=== PATIENT | female | born 1945 | race Caucasian/White ===

== ENCOUNTER 2023-05-30 23:37 | Inpatient (IN) | payer MEDICARE, SELFPAY ==
--- NOTE | ~2023-05-30 | XR_ITS ---
EXAMINATION: XR chest 2V DATE: 06/04/2023 08:04 INDICATION: Shortness of breath. Cough. TECHNIQUE: Frontal and lateral views of the chest were obtained. COMPARISON: Chest single view 06/01/2023, chest CT 05/31/2023 FINDINGS: There are interstitial opacities and patchy airspace opacities in the mid and lower lung [place]. No pleural effusion or pneumothorax. Cardiomegaly is noted. There is chronic anterior wedging of T12. There are surgical clips in the neck. IMPRESSION: 1. Stable interstitial opacities and patchy airspace opacities in the mid and lower lung zones, consi stent with pulmonary edema versus pneumonia. 2. Cardiomegaly. Reviewed, dictated and finalized at location [facility]. MBLER SEAT IMPRESSION: 1. Stable interstitial opacities and patchy airspace opacities in the mid and l ower lung zones, consistent with pulmonary edema versus pneumonia. 2. Cardiomegaly.
--- NOTE | ~2023-05-30 | CT_ITS ---
Clinical Indication: Dyspnea, hypoxia CT Scan of the Chest with Contrast: Technique: Contiguous sections were acquired throughout the chest after intravenous administration of 100 cc of Omnipaque 350. Dose reduction technique was used on this scan by utilizing automated expos ure control and iterative reconstruction technique. The dose-length product (DLP) was 954.30 mGy-cm. Findings: There is no evidence of any significant mediastinal, hilar or axillary lymphadenopathy. There is no f illing defect in the pulmonary arterial tree to suggest pulmonary embolus. There is no evidence of ao rtic dissection or aneurysm. There is cardiomegaly. No pericardial effusion. Small right pleural effusion present. No left pleural effusion. There is mild bibasilar atelectasis, with patchy groundglass opacity and mild septal thickening in th e aerated lungs. Images through the upper abdomen reveal no abnormalities. Impression: No evidence of pulmonary embolus, aortic dissection, or aortic aneurysm. Mild to moderate pulmonary edema pattern with small right pleural effusion. Reviewed, dictated and finalized at [facility]. GER Impression: No evidence of pulmonary embolus, aortic dissection, or aortic aneurysm. Mild to moderate pulmonary edema pattern with small right pleural effusion.
--- NOTE | ~2023-05-30 | XR_ITS ---
Portable chest x-ray Comparison: 05/26/2018 Clinical History: Dyspnea Findings: There is extensive hazy and interstitial pulmonary disease. No definite pleural effusions. Cardiomediastinal silhouette is stable. Bones and soft tissues are unremarkable. Impression: Moderate to advanced pulmonary edema pattern. Correlate clinically for infection. Reviewed, dictated and finalized at [facility] [place]. T THROWER Impression: Moderate to advanced pulmonary edema pattern. Correlate clinically for infectio n.
--- NOTE | ~2023-05-30 | XR_ITS ---
Portable chest x-ray Comparison: 05/30/2023 Clinical History: Hypoxia Findings: There is central congestive change and mild pulmonary edema, overall improved from prior e xam. Cardiomediastinal silhouette is stable. Bones and soft tissues are unremarkable. Impression: Pulmonary edema pattern is mildly improved from prior exam. Correlate for underlying chronic intersti tial disease. Stable cardiomegaly. Reviewed, dictated and finalized at location . 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 Correlate for under lying chronic interstitial disease. Stable cardiomegaly.
[2023-05-30 23:37] VITALS: BP 129/89; PULSE 110; RESP 26; TEMP 36.6; O2SAT 93
--- NOTE | 2023-05-30 23:46 | ECG_ITS ---
Measurements Intervals [place] Rate: 108 P: 40 OK: 142 QRS: -36 QRSD: 98 T: 52 QT: 341 QTc: 458 Interpretive Statements SINUS TACHYCARDIA VENTRICULAR PREMATURE COMPLEX LEFT AXIS DEVIATION PATTERN CONSISTENT WITH PULMONARY DISEASE BASELINE ARTIFACT- I, II, III, AVR, AVL, AVF, V1-V6 ABNORMAL ECG NO PREVIOUS ECG AVAILABLE FOR COMPARISON Electronically Signed On 05-31-2023 6:25:50 STEEL PAN FORM PLACING SUPERVISOR by Andres Humphrey D.O.
[2023-05-30 23:47] VITALS: O2SAT 95
[2023-05-30 23:57] LABS: Alveolar/Arterial O2 Gradient 582.6 mmHg; Base Excess ABG 1.8 mEq/l (+/-2.0); Fractional Inspired Oxygen 100 %; HCO3 ABG 29.2 mEq/l (22.0-26.0); Oxygen Content ABG 16.5 %vol (16.0-22.0); Oxygen Saturation ABG 92.7 % (95.0-100.0); Oxyhemoglobin 90.1 % THb (90.0-100.0); PCO2 ABG 58.8 mmHg (35.0-45.0); PO2 ABG 71.6 mmHg (80.0-100.0); PO2 FiO2 Ratio Arterial Blood 0.72 %; pH ABG 7.314 (7.350-7.450)
[2023-05-30 23:58] LABS: Device NON-REBREATHER MASK; Modified Allen's Test Pass; Site Drawn RIGHT RADIAL
[2023-05-31] VITALS (40 sets, daily range): BP systolic 106–126; BP diastolic 51–84; PULSE 71–102; RESP 18–43; TEMP 36.2–36.7; O2SAT 85–100; BMI 47.0
--- NOTE | 2023-05-31 | ECHO_ITS ---
Patient Info Name: Brandy Cooper Age: 78 years : 1945 Gender: Female Ht: 66 in Wt: 291 lbs BSA: 2.55 m2 HR: 108 bpm BP: 106 / 51 mmHg Heart Rhythm: Tachycardia, Sinus Rhythm Technical Quality: Fair Exam Date: 05/31/2023 3:17 PM Exam Location: Echo Lab Patient Status: Inpatient Admit Date: 05/31/2023 Staff Ordering Physician: Mark Barney MD Chip Frier: Usha Maddox RDCS Attending Provider: Anastasiia Seth DO Exam Type: CA echo dop bubble study w con Study Info Indications - hypoxia, pulm edema Complete two-dimentional, color flow and Doppler transthoracic echocardiogram is performed with agitated saline and with contrast to opacify the left ventricle and to improve the delineation of the left ventricle endocardial borders. Contrast/Agitated Saline Contrast/Ag. Saline: Definity Amount: 2.00 ml Administered By: Usha Maddox RDCS Existing IV Access: Yes IV Access Condition: patent with no signs of infiltration Contrast/Ag. Saline: Agitated Saline Amount: 20.00 ml Existing IV Access: Yes IV Access Condition: patent with no signs of infiltration Summary 1. Normal left ventricular size with mild concentric hypertrophy. Overall good left ventricular systolic function with an ejection fraction 60-65%, although there is mild hypokinesis of the basal inferior wall and the lateral wall. Grade 2 diastolic dysfunction is present. 2. Left atrial chamber dimension is severely enlarged. 3. There is severe aortic valve stenosis with a peak velocity of 4.25 m/s, mean gradient of 35 mmHg, and aortic valve area of 0.8 cm2. Severely calcific valve. 4. There is mild eccentric mitral valve regurgitation, with moderate mitral annular calcification. 5. There is mild tricuspid valve regurgitation. 6. There is mild pulmonic regurgitation. 7. Dilated inferior vena cava with >50% collapse upon inspiration consistent with elevated right atrial pressure, 10 mmHg. 8. Moderate pulmonary hypertension, estimated pulmonary arterial systolic pressure is 47 mmHg. 9. Calcification of the aortic root. 10. Bubble study showed a few left-sided bubbles after several cardiac cycles during the Valsalva maneuver, consistent with pulmonary shunting rather than a PFO. 11. Sinus tachycardia. 12. Technically difficult study; definity echo contrast used. Left Ventricle Left ventricular chamber dimension is normal. Left ventricular systolic function is normal, estimated at 60-65%. There is mildly increased left ventricular wall thickness. Left ventricular septal wall motion is normal. The left ventricular diastolic function is grade II diastolic dysfunction. Right Ventricle Right ventricular chamber dimension is normal. Right ventricular systolic function is normal. Left Atria Left atrial chamber dimension is severely enlarged. Left atrial chamber dimension is severely enlarged. Right Atria Right atrial chamber dimension is normal. Aortic Valve The aortic valve is trileaflet. There is no aortic valve sclerosis. There is severe aortic valve stenosis with a peak velocity of 4.25 m/s, mean gradient of 35 mmHg, and aortic valve area of 0.8 cm2. Severely calcific valve. There is no aortic valve regurgitation. There is severe aortic valve calcification. Pulmonic Valve The pulmonic valve is normal. There is no pulmonic valve stenosis. There is mild pulmonic regurgitation. Mitral Valve The mitral valve has normal leaflets. There is no mitral valve stenosis. There is mild eccent
[2023-05-31 00:51] LABS: Basophils Absolute Auto 0.1 K/mm3 (0.0-0.1); Basophils Percent Auto 0.5 % (0.2-1.2); Eosinophils Absolute Auto 0.1 K/mm3 (0-0.3); Eosinophils Percent Auto 0.5 % (0-4.4); Hematocrit 40.2 % (37.0-47.0); Hemoglobin 11.9 g/dL (12.0-15.0); Immature Granulocyte Absolute 0.04 K/mm3 (0.00-0.031); Immature Granulocyte Percent A 0.4 % (0-0.5); Lymphocytes Absolute Auto 1.15 K/mm3 (0.9-3.2); Lymphocytes Percent Auto 10.8 % (18.3-44.2); Mean Corpuscular HGB Conc 29.6 g/dl (32-36); Mean Corpuscular Hemoglobin 29.9 pg (26-34); Mean Platelet Volume 10.4 fl (7.4-10.4); Monocytes Absolute Auto 0.6 K/mm3 (0.1-0.6); Monocytes Percent Auto 5.7 % (2.6-8.5); Neutrophils Absolute Auto 8.8 K/mm3 (1.3-6.7); Neutrophils Percent Auto 82.1 % (45.5-73.1); Platelet Count Result 176 k/mm3 (150-375); Red Blood Count 3.98 M/mm3 (4.2-5.4); Red Cell Distribution Width 16.3 % (11.5-14.5); White Blood Count 10.7 K/mm3 (4.5-10.0)
[2023-05-31 00:55] LABS: Alanine Aminotransferase 22 U/L (6-35); Albumin Level 4.1 g/dL (3.5-5.1); Alkaline Phosphatase 78 U/L (38-126); Anion Gap 9 mmol/L (8-16); Aspartate Amino Transferase 32 U/L (14-36); Bilirubin,Total 1.2 mg/dL (0.2-1.3); Blood Urea Nitrogen 21 mg/dL (7-17); Calcium 9.4 mg/dL (8.4-10.2); Carbon Dioxide 32 mmol/L (22-30); Chloride 98 mmol/L (98-107); Estimated CRCL calculation 50 ml/min; Estimated Glomerular Filt Rate 44; Glucose 141 mg/dL (65-110); Magnesium 1.8 mg/dL (1.6-2.3); Potassium 4.3 mmol/L (3.4-5.0); Sodium 139 mmol/L (137-145)
[2023-05-31 00:56] LABS: Prothrombin Time 13.8 Seconds (11.1-14.7)
[2023-05-31 00:57] LABS: Partial Thromboplastin Time 26.4 SECONDS (22.3-36.8)
[2023-05-31 01:06] LABS: Lactic Acid Reflex 1.8 mmol/L (0.7-2.0); NT Pro B Type Natriuretic Pept 4060 pg/mL (19.9-100); Troponin I < 0.012 ng/mL (0.000-0.034)
[2023-05-31 01:13] LABS: Anisocytosis 1+ (NORMAL); Large Platelets Present; Macrocytosis 1+ (NORMAL); Platelet Estimate Adequate (Adequate)
[2023-05-31 01:14] LABS: Schistocytes None Seen (NORMAL)
[2023-05-31 01:17] LABS: Appearance Urine Clear (Clear); Bacteria Urine None Seen /hpf; Bilirubin Urine Negative (Negative); Blood Urine Negative (Negative); Calcium Oxalate Crystals Urine Present /hpf; Color Urine Dark Yellow (Yellow); Glucose Urine UA Negative (Negative); Hyaline Casts Urine Present /lpf; Ketones Urine Trace mg/dL (Negative); Leukocyte Esterase Ur Negative LEU/UL (Negative); Need Manual Microscopic Reviewed; Nitrate Urine Negative (Negative); Non Pathogenic Casts 0-2; Protein Urine 2+ mg/dL (Negative); Specific Grav Ur 1.025 (1.001-1.035); Squamous Epithelial Cell Urine Occasional /hpf (Few)
[2023-05-31 01:19] LABS: Influenza A QL RT-PCR Negative (Negative); Influenza B QL RT-PCR Negative (Negative); SARS-CoV-2 RNA PCR Negative (Negative)
--- NOTE | 2023-05-31 01:29 | ED.GENADULT ---
HPI - General Adult General Chief complaint: Shortness of Breath/Dyspnea Stated complaint: RESPIRATORY DISTRESS Time Seen by Provider: 05/30/23 23:45 History of Present Illness HPI narrative: Patient is a 78-year-old female who presents the emergency department with chief complaint of shortness of breath. The patient is a resident of [place] and EMS was called this evening after she was having severe shortness of breath patient wears 4 L of oxygen at night he does have history of COPD the patient was profoundly hypoxic in the field and was started on a nonrebreather to maintain her sats. Upon arrival to the emergency department the patient was able to speak in complete sentences but was hypoxic still and was placed on BiPAP. Related Data Allergies Allergy/AdvReac Type Severity Reaction Status Date / Time Penicillins Allergy Unknown Unknown Verified 05/20/18 12:39 Review of Systems Review of Systems: A 10 system review of systems was completed on the patient and is negative except for what is stated in the HPI. Nursing and ancillary documentation was reviewed. Exam Narrative: GENERAL: Well-appearing, well-nourished, and in no acute distress. HEAD: Normocephalic, atraumatic. EYES: PERRLA and EOMI. ENT: Nares clear, no rhinorrhea or epistaxis. Mucous membranes moist. NECK: Supple. CHEST: Clear to auscultation. No respiratory distress. HEART: Regular rate and rhythm. No murmur heard. Normal peripheral pulses. ABDOMEN: Soft, nontender, nondistended, normal active bowel sounds. EXTREMITIES: Normal range of motion. No edema. SKIN: Warm, dry, no rash. NEURO: No focal deficits. Alert and oriented x3. PSYCH: Normal mood and affect. Course Vital Signs Vital signs: Vital Signs Temperature 36.6 C 05/30/23 23:37 Pulse Rate 110 H 05/30/23 23:37 Respiratory Rate 26 H 05/30/23 23:37 Blood Pressure 129/89 05/30/23 23:37 Pulse Oximetry 93 05/30/23 23:37 Oxygen Delivery Non-Rebreather Mask 05/30/23 23:37 Oxygen Flow Rate 15 05/30/23 23:37 Temperature 36.6 C 05/30/23 23:37 Pulse Rate 88 05/31/23 03:30 Respiratory Rate 23 H 05/31/23 03:30 Blood Pressure 117/78 05/31/23 03:30 Pulse Oximetry 95 05/31/23 03:30 Oxygen Delivery BiPAP 05/31/23 01:07 Oxygen Flow Rate 15 05/30/23 23:47 Medical Decision Making [facility] Narrative Medical decision making narrative: Differential diagnosis includes pneumonia, pulmonary embolism, CHF, ACS Laboratory studies were obtained on the patient which showed a white count of 10.7 ABG showed a pH 7.314 with PCO2 of 58.8 electrolytes showed a creatinine 1.2 troponin was 0.019 BNP is 4060 Pro-[place] 0.1 urinalysis showed 6-10 white blood cells flu was negative COVID was negative chest x-ray showed diffuse infiltrates and possible CHF. CTA chest showed no evidence of PE there was evidence of infiltrate present. Patient was given a small dose of Lasix patient is currently on BiPAP and also patient will be started on Rocephin and Zithromax the patient be admitted to the hospitalist service. Vital Signs Vital Signs: Vital Signs Temperature 36.6 C 05/30/23 23:37 Pulse Rate 110 H 05/30/23 23:37 Respiratory Rate 26 H 05/30/23 23:37 Blood Pressure 129/89 05/30/23 23:37 Pulse Oximetry 93 05/30/23 23:37 Oxygen Delivery Non-Rebreather Mask 05/30/23 23:37 Oxygen Flow Rate 15 05/30/23 23:37 Temperature 36.6 C 05/30/23 23:37 Pulse Rate 88 05/31/23 03:30 Respiratory Rate 23 H 05/31/23 03:30 Blood Pressure 117/78 05/31/23 03:30 Pulse Oximetry 95 05/31/23 03:30 Oxygen Delivery BiPAP 05/31/23 01:07 Oxygen Flow Rate 15 05/30/23 23:47 Lab Data 05/30/23 23:52 05/30/23 23:52 Labs: Lab Results 05/30/23 05/31/23 05/31/23 Range/Units 23:52 00:18 03:00 WBC 10.7 H (4.5-10.0) K/mm3 RBC 3.98 L (4.2-5.4) M/mm3 Hgb 11.9 L (12.0-15.0) g/dL Hct 40.2 (37.0-47.0
[2023-05-31 01:53] LABS: Procalcitonin 0.1 ng/mL
[2023-05-31 02:14] LABS: Add Urine Microscopic? YES
[2023-05-31] MEDS: FUROSEMIDE INJ 40 MG/4 ML VIAL IV PUSH ×2 (02:52→17:33)
[2023-05-31 03:32] LABS: Troponin I 0.019 ng/mL (0.000-0.034)
[2023-05-31] MEDS: AZITHROMYCIN 500 MG/NS 250 ML 500 MG/250 ML BAG 250 MG IVPB (03:33)
[2023-05-31] MEDS: methylPREDNISolone SOD SUCC 125 MG VIAL IV PUSH (03:39)
--- NOTE | 2023-05-31 05:03 | ADMGEN ---
This patient, Brandy Cooper, was admitted to IMU Room 204-01. Patient/family oriented to hospital policies and general routines including ID bracelet, bed and alarms, visiting hours, pain management, procedures, bathroom and other care routines, personal items, smoking policy, room service/diet, and visiting hours. Information on how to activate the Rapid Response Team has been discussed. Patient/Family are encouraged to report perceived risks to care and to ask questions if they do not understand what they are told or what they should do.
[2023-05-31] MEDS: ALBUTEROL SULFATE NEB 2.5 MG/3 ML INH INHALATION ×3 (08:19→19:55)
[2023-05-31] MEDS: IPRATROPIUM BR 0.02% INH SOLN 0.5 MG/2.5 ML VIAL INHALATION ×3 (08:19→19:55)
--- NOTE | 2023-05-31 11:26 | PM.IMHP ---
H&P: HPI History of Present Illness Date/Time: 05/31/23 11:26 Chief Complaint: Shortness of breath Narrative: 78yo female with pAFib, PAD, NEVIN requiring NIV with 4L O2 bleed-in and HTN here for increasing shortness of breath. Patient has been having increasing shortness of breath over the past 1-2 days. She does not have asthma or COPD. She is lifelong nonsmoker. She does have a nebulizer that she uses as needed at home. She uses this about 1-2 times a week. She is not on oxygen during the day but does have sleep apnea and wears her noninvasive ventilation unit every night with 4 L of oxygen bled in. She has not been having a cough, chest pain, palpitations, wheezing, pleuritic chest pain or calf pain. No odynophagia or dysphagia. No fever or chills. She does not have CHF but her doctor has told her in the past that she needs to limit her salt intake. She has had increasing pedal edema over the past month. No weight gain. She sleeps in the chair chronically and has done so for years. She denies any PND or orthopnea. She has nocturia 1-2 times a night and this has not changed. She does have dyspnea on exertion which is chronic. She believes her last sleep study was greater than 5 years ago. Because of the increasing shortness of breath, EMS was called. On EMS arrival, patient was 71% on her 4L and placed on NRB 15L.She did feel better with neb treatment. She was brought to the ED for evaluation. In the ED, patient was tachypneic and required BiPAP. EKG showing sinus tachycardia and left axis. CXR showing pulmonary edema. CTA chest showing no PE but also showing mild-moderate pulmonary edema. ABG 7.31/59/72 NRB mask. BNP 4000. Troponin negative x2. UA noted and blood and urine cultures collected. Influenza and COVID negative. Lungs clear by ED exam. She was given Lasix IV, Rocephin/Azithromycin, Solu-Medrol, and neb treatments. She was admitted for further care on BiPAP. Review of Systems Review of Systems: All systems reviewed & are unremarkable except as noted in HPI and below PMFSH Past Medical History Medical History (Updated 05/31/23 @ 12:46 by Mark Barney MD) Chronic anemia Essential hypertension, benign GERD (gastroesophageal reflux disease) Hypothyroidism Macular degeneration NEVIN (obstructive sleep apnea) Paroxysmal atrial fibrillation Peripheral vascular disease reported hx of Rt lower extremity stent Thyroid goiter s/p thyroidectomy complicated by acute resp failure and tracheostomy Vitamin D deficiency Surgical History Surgical History (Updated 05/31/23 @ 12:45 by Mark Barney MD) H/O thyroidectomy for goiter H/O: hysterectomy History of gastrostomy tube placement Hx of cataract removal with insertion of prosthetic lens Hx of tracheostomy Family History Family History (Updated 05/31/23 @ 12:46 by Mark Barney MD) Father Brain tumor Social History Social History (Updated 05/31/23 @ 12:47 by Mark Barney MD) Social History: Lifelong nonsmoker. Rarely drinks alcohol. No drug use. She is single. No children. Her niece Kaleigh Fernández is her healthcare power of extension agent. She is a full code. Smoking status: Never smoker Alcohol intake: never Substance use: never Substance use type: does not use Lack of Transportation: No Lack of Food: Never True Current Housing: I Have Housing Concerned About Future Housing: No Difficulty Paying Gas/Electric Bills: No Difficulty Paying for Meds: No Currently Unemployed: No Education: Don't Know Difficulty w/ Childcare or Family Care: No Gender identity (if verbalized by the patient): Female Sexual Orientation (if Verbalized by the Patient): Straight or Heterosexual Spiritual care concerns: No Meds Home Medications and Allergies Home Medications Medication Instructions Recorded Confirmed Type acetaminophen 650 mg tablet 650 mg PO Q4H PRN Pain (Scale 05/31/23 05/31/23 History Score 1-3)
[2023-05-31] MEDS: CALCIUM CARBONATE (TUMS) 500 MG (200 MG ELEMENTAL) PO ×2 (13:26→17:33)
--- NOTE | 2023-05-31 15:08 | PCSTNOTE ---
Please refer to the Bedside Swallow Evaluation in the EMR. Please note, silent aspiration cannot be ruled out at bedside.
[2023-05-31] MEDS: PERFLUTREN LIPID MICROSPHERES 1.5 ML VIAL DILUTED TO 10 ML TOTAL VOLUME IV PUSH (16:00)
--- NOTE | 2023-05-31 16:31 | IVDEFINITY ---
Prior to administration of IV Definity the patient was educated on the risks and benefits of the imaging enhancing agent including potential adverse side effects. The patient verbalized understanding. Allergies were verified. No exclusion criteria were identified and at least one of the following inclusion criteria were met: 1) physician request, 2) patient technically difficult to image (per the [place] [employer] guidelines of two or more segments not discernable within the apical view), or 3) questionable left ventricular function. ?
[2023-05-31] MEDS: OPTI-GEN TAB 2 TABLET PO (17:32)
[2023-05-31] MEDS: MAGNESIUM OXIDE 400 MG TABLET PO (17:33)
[2023-05-31] MEDS: MELATONIN 5 MG TABLET 10 MG PO (20:14)
[2023-06-01] VITALS (28 sets, daily range): BP systolic 95–125; BP diastolic 56–96; PULSE 73–102; RESP 18–28; TEMP 35.9–36.8; O2SAT 90–96
[2023-06-01] MEDS: IPRATROPIUM BR 0.02% INH SOLN 0.5 MG/2.5 ML VIAL INHALATION ×4 (02:36→19:40)
[2023-06-01] MEDS: ALBUTEROL SULFATE NEB 2.5 MG/3 ML INH INHALATION ×4 (02:36→19:40)
[2023-06-01] MEDS: AZITHROMYCIN 500 MG/NS 250 ML 500 MG/250 ML BAG 250 MG IVPB (03:37)
[2023-06-01 05:11] LABS: Basophils Percent Auto 0.2 % (0.2-1.2); Hematocrit 32.2 % (37.0-47.0); Hemoglobin 9.7 g/dL (12.0-15.0); Immature Granulocyte Absolute 0.02 K/mm3 (0.00-0.031); Immature Granulocyte Percent A 0.4 % (0-0.5); Lymphocytes Absolute Auto 0.59 K/mm3 (0.9-3.2); Lymphocytes Percent Auto 10.4 % (18.3-44.2); Mean Corpuscular HGB Conc 30.1 g/dl (32-36); Mean Corpuscular Volume 99.7 fl (80-100); Mean Platelet Volume 10.1 fl (7.4-10.4); Monocytes Absolute Auto 0.6 K/mm3 (0.1-0.6); Monocytes Percent Auto 10.9 % (2.6-8.5); Neutrophils Absolute Auto 4.4 K/mm3 (1.3-6.7); Neutrophils Percent Auto 78.1 % (45.5-73.1); Platelet Count Result 145 k/mm3 (150-375); Red Blood Count 3.23 M/mm3 (4.2-5.4); Red Cell Distribution Width 16.2 % (11.5-14.5); White Blood Count 5.7 K/mm3 (4.5-10.0)
[2023-06-01 05:27] LABS: Alanine Aminotransferase 15 U/L (6-35); Albumin Level 3.3 g/dL (3.5-5.1); Alkaline Phosphatase 57 U/L (38-126); Anion Gap 9 mmol/L (8-16); Aspartate Amino Transferase 17 U/L (14-36); Bilirubin,Total 0.8 mg/dL (0.2-1.3); Blood Urea Nitrogen 27 mg/dL (7-17); Calcium 8.4 mg/dL (8.4-10.2); Carbon Dioxide 30 mmol/L (22-30); Chloride 100 mmol/L (98-107); Estimated CRCL calculation 58 ml/min; Estimated Glomerular Filt Rate 54; Glucose 109 mg/dL (65-110); Magnesium 1.9 mg/dL (1.6-2.3); Phosphorus 5.1 mg/dL (2.5-4.5); Potassium 4.5 mmol/L (3.4-5.0); Sodium 139 mmol/L (137-145)
[2023-06-01 05:30] LABS: Alveolar/Arterial O2 Gradient 225.8 mmHg; Base Excess ABG 4.2 mEq/l (+/-2.0); Fractional Inspired Oxygen 50 %; HCO3 ABG 28.4 mEq/l (22.0-26.0); Oxygen Content ABG 14.7 %vol (16.0-22.0); Oxygen Saturation ABG 96.8 % (95.0-100.0); Oxyhemoglobin 95.1 % THb (90.0-100.0); PO2 ABG 84.6 mmHg (80.0-100.0); PO2 FiO2 Ratio Arterial Blood 1.69 %; Total Hemoglobin 10.9 g/dL (12.0-18.0); pH ABG 7.459 (7.350-7.450)
[2023-06-01 05:31] LABS: Modified Allen's Test Pass; Site Drawn RIGHT RADIAL
[2023-06-01 05:32] LABS: Device OTHER DEVICE
[2023-06-01 05:36] LABS: Troponin I 0.014 ng/mL (0.000-0.034)
[2023-06-01] MEDS: LEVOTHYROXINE SODIUM 100 MCG TABLET 200 MCG PO (06:06)
[2023-06-01 06:31] LABS: Folic Acid 9.2 ng/mL (2.76->20)
[2023-06-01 07:53] LABS: Free T4 Free Thyroxine Reflex 1.32 ng/dL (0.78-2.19)
[2023-06-01] MEDS: MAGNESIUM OXIDE 400 MG TABLET PO ×2 (08:10→17:23)
[2023-06-01] MEDS: FAMOTIDINE 20 MG TABLET PO (08:10)
[2023-06-01] MEDS: calcitrioL 0.25 MCG CAPSULE PO (08:10)
[2023-06-01] MEDS: CYANOCOBALAMIN 1,000 MCG TABLET 1000 MCG PO (08:10)
[2023-06-01] MEDS: ASPIRIN 81 MG ENTERIC TABLET PO (08:10)
[2023-06-01] MEDS: CALCIUM CARBONATE (TUMS) 500 MG (200 MG ELEMENTAL) PO ×3 (08:10→17:22)
[2023-06-01] MEDS: FUROSEMIDE INJ 40 MG/4 ML VIAL IV PUSH (08:11)
[2023-06-01] MEDS: OPTI-GEN TAB 2 TABLET PO ×2 (08:11→17:22)
[2023-06-01] MEDS: VANCOMYCIN 1,250 MG/NS 250 ML 1,250 MG/250 ML BAG 166.67 MG IVPB ×2 (08:21→10:02)
[2023-06-01 12:12] LABS: MRSA (PCR) NOT DETECTED (NOT DETECTE)
--- NOTE | 2023-06-01 13:36 | PM.IMPN ---
Progress Note: A&P Assessment and Plan (1) Acute hypercapnic respiratory failure: Code(s): J96.02 - Acute respiratory failure with hypercapnia Status: Acute Assessment and Plan: Patient was admitted to the IMU on BiPAP. Etiology of her acute respiratory failure is somewhat unclear. Dysphagia unlikely: Speech therapy felt patient could swallow safely. No further speech therapy needs. The notes mentions she has COPD the patient but she is a lifelong nonsmoker. No history of CHF although chest x-ray is consistent with pulmonary edema. She has been started on antibiotics but no cough, fever or leukocytosis to suggest infectious process. ABG does show CO2 retention. Consider that her sleep apnea may not be optimally treated. Most likely etiology is the pulmonary edema/CHF resulting in respiratory distress. Troponins are negative x3. Treated with Lasix IV with good response. Solu-Medrol stopped since there was no wheezing on presentation nor currently. Continue nebulizer treatments for now. Able to wean BiPAP to use at night, with naps and as needed. ABG today showing 7.46/41/85 pm 50% FiO2 Echo showing EF 60-65%, basal inferior and lateral wall HK, Grade II diastolic dysfuction, moderate pulm HTN, severe (0.8cm2) and pulmonary shunt. CHF probably acute diastolic CHF felt related to severe . She also may be need chronic O2 during the day due to shunt. BP soft so will back off on lasix. Cardiology consult. Add empagliflozin. (2) Bacteremia: Code(s): R78.81 - Bacteremia Status: Acute Assessment and Plan: BCx (1of2 sets) positive for GPC in clusters anaerobic only. Suspect this is contaminate but did present with SOB and respiratory failure. Follow on BCx results. Continue Vanco Repeat BCx Consider BRANDT if persistent bacteremia (3) Aortic stenosis: Code(s): I35.0 - Nonrheumatic aortic (valve) stenosis Status: Acute Assessment and Plan: As above. (4) S/P nxlkzjbp-ld-zthsugurk shunt: Code(s): Z95.818 - Presence of other cardiac implants and grafts Status: Acute Assessment and Plan: As above. (5) CHF (congestive heart failure): Code(s): I50.9 - Heart failure, unspecified Status: Acute Assessment and Plan: Acute diastolic CHF. As above (6) Essential hypertension, benign: Code(s): I10 - Essential (primary) hypertension Status: Acute Assessment and Plan: Patient's blood pressure was reviewed on 06/01 Blood pressure soft at times Will continue to monitor (7) Chronic anemia: Code(s): D64.9 - Anemia, unspecified Status: Acute Assessment and Plan: Hemoglobin low on previous checks but n recent Hgb. Hgb 11.9 on admission and has dropped to 9.7 Macrocytosis noted. B12/folate normal Check iron studies (8) Paroxysmal atrial fibrillation: Code(s): I48.0 - Paroxysmal atrial fibrillation Status: Acute Assessment and Plan: Patient with paroxysmal AFib. No evidence recurrence on telemetry. She is not anticoagulation chronically. She is not on rate-controlling agents on admission either. Continue to monitor on telemetry (9) Hypothyroidism: Code(s): E03.9 - Hypothyroidism, unspecified Status: Acute Assessment and Plan: TSH low but FT4 normal. Will need this rechecked once she is better Plan DVT Prophylaxis - SCDs Code status - Full Subjective Date/time seen: 06/01/23 13:36 Interval history: 78yo female with pAFib, PAD, NEVIN requiring NIV with 4L O2 bleed-in and HTN here for increasing shortness of breath.?Not on O2 during the day. Slept okay last night. Tolerated the BiPAP. No cough. No CP. no n/v. Exam Narrative: AF 98.1 100/56 87 22 93% 6L Gen - NARD sitting up in chair Chest - bibasilar inspiratory crackles. CV - RRR S1/S2; Tele showing PACs Abd - soft, obese, NT -Delgado catheter secur
--- NOTE | 2023-06-01 15:47 | PM.CNCAR ---
Assessment and Plan Assessment and plan (1) Aortic stenosis: Code(s): I35.0 - Nonrheumatic aortic (valve) stenosis Status: Acute Assessment and Plan: Patient presents with new onset acute diastolic heart failure and has not found to have severe aortic stenosis as well as diastolic dysfunction. She is improving but still on O2. Counseled patient and POA and extensively about aortic stenosis. This will progress with time and is a serious heart problem but potentially fixable. --Discussed evaluation for and eventual TAVR. They are interested in proceeding. This can be done as an outpatient. (2) Acute diastolic CHF (congestive heart failure): Code(s): I50.31 - Acute diastolic (congestive) heart failure Status: Acute Assessment and Plan: Diuresing, improving. Likely secondary to aortic stenosis with a component of diastolic heart failure. Although she carries a diagnosis of paroxysmal AFib she is unaware of this and I cannot find any documentation of atrial fibrillation. Her echo also suggested some segmental wall motion abnormalities which makes me wonder she has underlying CAD perhaps causing some ischemia after her four block walk uphill last week, and subsequent acute CHF. However her troponins were all basically normal and there were no acute changes on her EKG. --cont diuretic --Agree w/ empagliflozin --Avoid hypotension; borderline as is --Daily BMP (3) Bacteremia: Code(s): R78.81 - Bacteremia Status: Acute Assessment and Plan: Found have Gram-positive cocci in clusters. Will see what the organism is but if it is not thought to be a contaminant we will consider transesophageal echo. However this procedure wouldl be at higher risk than average due to the patient's morbid obesity and severe aortic stenosis. --Cont vancomycin (4) S/P twyexswh-jj-jpvzykwfo shunt: Code(s): Z95.818 - Presence of other cardiac implants and grafts Status: Acute Assessment and Plan: Echo study showed a very small amount of bubbles in the left heart after several cardiac cycles, suggesting not a PFO but some bubbles being passed through the pulmonary circuit. This is was a very small amount of shunting and unlikely to be a clinically relevant problem. (5) Lymphedema: Code(s): I89.0 - Lymphedema, not elsewhere classified Status: Acute Assessment and Plan: Treated by stenting a LE vein in the past by Dr. Field, and LE foot pumps. -- These increase venous return to the heart and can precipitate CHF in a vulnerable heart. Consider discontinuing this until her aortic stenosis has been addressed. (6) Chronic anemia: Code(s): D64.9 - Anemia, unspecified Status: Acute Assessment and Plan: No clinical bleeding. 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 Barney for our advice and opinion regarding her severe aortic stenosis, in consultation. She has a history of NEVIN on home O2, hypertension, and lymphedema with chronic venous sufficiency (status post lower extremity venous stent by Dr. Field). EMR states that she has a history of PAF, but she denies any history of heart disease. Ms Cooper says she can walk to the dining room at [place] [place] but if she walks further she may get short of breath. Last she went on a field trip to the [employer] and had to walk 4 blocks uphill. She felt like she could barely make it was completely worn out but enjoyed the museum once she made it there and rested. Last night she was using her leg pumps for her lymphedema, and suddenly felt like she could not get enough air and was very short of breath. This did not resolve so she came to the [facility]
[2023-06-01] MEDS: EUCERIN CREAM 120 GM JAR 1 APPLIC TOPICAL (17:23)
[2023-06-01] MEDS: MELATONIN 5 MG TABLET 10 MG PO (21:06)
[2023-06-02] VITALS (29 sets, daily range): BP systolic 95–115; BP diastolic 46–65; PULSE 72–103; RESP 18–24; TEMP 36.4–37.5; O2SAT 92–100
[2023-06-02] MEDS: IPRATROPIUM BR 0.02% INH SOLN 0.5 MG/2.5 ML VIAL INHALATION ×4 (01:56→19:38)
[2023-06-02] MEDS: ALBUTEROL SULFATE NEB 2.5 MG/3 ML INH INHALATION ×4 (01:57→19:39)
[2023-06-02] MEDS: AZITHROMYCIN 500 MG/NS 250 ML 500 MG/250 ML BAG 250 MG IVPB (04:20)
[2023-06-02] MEDS: LEVOTHYROXINE SODIUM 100 MCG TABLET 200 MCG PO (05:27)
[2023-06-02 05:32] LABS: Basophils Percent Auto 0.3 % (0.2-1.2); Eosinophils Absolute Auto 0.1 K/mm3 (0-0.3); Eosinophils Percent Auto 2.4 % (0-4.4); Hematocrit 32.8 % (37.0-47.0); Hemoglobin 9.9 g/dL (12.0-15.0); Immature Granulocyte Absolute 0.04 K/mm3 (0.00-0.031); Immature Granulocyte Percent A 0.7 % (0-0.5); Lymphocytes Absolute Auto 0.82 K/mm3 (0.9-3.2); Lymphocytes Percent Auto 14.1 % (18.3-44.2); Mean Corpuscular HGB Conc 30.2 g/dl (32-36); Mean Corpuscular Hemoglobin 30.7 pg (26-34); Mean Corpuscular Volume 101.5 fl (80-100); Mean Platelet Volume 10.5 fl (7.4-10.4); Monocytes Absolute Auto 0.5 K/mm3 (0.1-0.6); Monocytes Percent Auto 9.3 % (2.6-8.5); Neutrophils Absolute Auto 4.3 K/mm3 (1.3-6.7); Neutrophils Percent Auto 73.2 % (45.5-73.1); Platelet Count Result 136 k/mm3 (150-375); Red Blood Count 3.23 M/mm3 (4.2-5.4); Red Cell Distribution Width 16.5 % (11.5-14.5); White Blood Count 5.8 K/mm3 (4.5-10.0)
[2023-06-02 05:47] LABS: Iron 11 ug/dL (37-170)
[2023-06-02 05:49] LABS: Albumin Level 3.3 g/dL (3.5-5.1); Anion Gap 5 mmol/L (8-16); Blood Urea Nitrogen 33 mg/dL (7-17); Carbon Dioxide 33 mmol/L (22-30); Chloride 100 mmol/L (98-107); Estimated CRCL calculation 53 ml/min; Estimated Glomerular Filt Rate 48; Glucose 85 mg/dL (65-110); Magnesium 1.9 mg/dL (1.6-2.3); Phosphorus 3.7 mg/dL (2.5-4.5); Potassium 4.1 mmol/L (3.4-5.0); Sodium 138 mmol/L (137-145)
[2023-06-02 05:59] LABS: Percent Iron Saturation 5 % (20-50)
[2023-06-02] MEDS: calcitrioL 0.25 MCG CAPSULE PO (08:38)
[2023-06-02] MEDS: MAGNESIUM OXIDE 400 MG TABLET PO ×2 (08:38→17:56)
[2023-06-02] MEDS: EMPAGLIFLOZIN 10 MG TABLET PO (08:38)
[2023-06-02] MEDS: OPTI-GEN TAB 2 TABLET PO ×2 (08:38→17:56)
[2023-06-02] MEDS: CALCIUM CARBONATE (TUMS) 500 MG (200 MG ELEMENTAL) PO ×2 (08:38→17:56)
[2023-06-02] MEDS: CYANOCOBALAMIN 1,000 MCG TABLET 1000 MCG PO (08:38)
[2023-06-02] MEDS: FAMOTIDINE 20 MG TABLET PO (08:38)
[2023-06-02] MEDS: ASPIRIN 81 MG ENTERIC TABLET PO (08:38)
[2023-06-02] MEDS: FUROSEMIDE INJ 40 MG/4 ML VIAL IV PUSH (08:39)
[2023-06-02] MEDS: EUCERIN CREAM 120 GM JAR 1 APPLIC TOPICAL ×2 (10:55→17:57)
--- NOTE | 2023-06-02 15:46 | PM.IMPN ---
Progress Note: A&P Assessment and Plan (1) Acute hypercapnic respiratory failure: Code(s): J96.02 - Acute respiratory failure with hypercapnia Status: Acute Assessment and Plan: Patient was admitted to the IMU on BiPAP. Etiology of her acute respiratory failure is somewhat unclear. Dysphagia unlikely: Speech therapy felt patient could swallow safely. No further speech therapy needs. The notes mentions she has COPD the patient but she is a lifelong nonsmoker. No history of CHF although chest x-ray is consistent with pulmonary edema. She has been started on antibiotics but no cough, fever or leukocytosis to suggest infectious process. ABG does show CO2 retention. Consider that her sleep apnea may not be optimally treated. Most likely etiology is the pulmonary edema/CHF resulting in respiratory distress. Troponins are negative x3. Treated with Lasix IV with good response. Solu-Medrol stopped since there was no wheezing on presentation nor currently. Continue nebulizer treatments for now. Able to wean BiPAP to use at night, with naps and as needed. ABG today showing 7.46/41/85 pm 50% FiO2 Echo showing EF 60-65%, basal inferior and lateral wall HK, Grade II diastolic dysfuction, moderate pulm HTN, severe (0.8cm2) and pulmonary shunt. CHF probably acute diastolic CHF felt related to severe . She also may be need chronic O2 during the day due to shunt. BP soft so will back off on lasix. Cardiology consult. Add empagliflozin. (2) Bacteremia: Code(s): R78.81 - Bacteremia Status: Acute Assessment and Plan: BCx (1of2 sets) positive for GPC in clusters anaerobic only. Suspect this is contaminate but did present with SOB and respiratory failure. Follow on BCx results. Continue Vanco Repeat BCx Consider BRANDT if persistent bacteremia Suspect this is a contaminant, repeat pending (3) Aortic stenosis: Code(s): I35.0 - Nonrheumatic aortic (valve) stenosis Status: Acute Assessment and Plan: As above. (4) S/P eesozbgh-ck-zuuojdzhd shunt: Code(s): Z95.818 - Presence of other cardiac implants and grafts Status: Acute Assessment and Plan: As above. (5) CHF (congestive heart failure): Code(s): I50.9 - Heart failure, unspecified Status: Acute Assessment and Plan: Acute diastolic CHF. As above (6) Essential hypertension, benign: Code(s): I10 - Essential (primary) hypertension Status: Acute Assessment and Plan: Patient's blood pressure was reviewed on 06/01 Blood pressure soft at times Will continue to monitor (7) Chronic anemia: Code(s): D64.9 - Anemia, unspecified Status: Acute Assessment and Plan: Hemoglobin low on previous checks but n recent Hgb. Hgb 11.9 on admission and has dropped to 9.7 Macrocytosis noted. B12/folate normal Check iron studies (8) Paroxysmal atrial fibrillation: Code(s): I48.0 - Paroxysmal atrial fibrillation Status: Acute Assessment and Plan: Patient with paroxysmal AFib. No evidence recurrence on telemetry. She is not anticoagulation chronically. She is not on rate-controlling agents on admission either. Continue to monitor on telemetry (9) Hypothyroidism: Code(s): E03.9 - Hypothyroidism, unspecified Status: Acute Assessment and Plan: TSH low but FT4 normal. Will need this rechecked once she is better Plan DVT Prophylaxis - SCDs Code status - Full Subjective Date/time seen: 06/02/23 15:46 Interval history: 78yo female with pAFib, PAD, NEVIN requiring NIV with 4L O2 bleed-in and HTN here for increasing shortness of breath.?Not on O2 during the day. No overnight events noted. No chest pain, shortness of breath improve. No nausea, vomiting or diarrhea. No fevers or chills. Review of Systems Review of Systems: 12 point review of systems was assessed and was negative
[2023-06-02 17:00] LABS: Thyroid Stimulating Hormone 0.856 uIU/mL (0.465-4.680)
--- NOTE | 2023-06-02 17:09 | PM.PNCARD ---
Progress Note: A&P Assessment and Plan (1) Aortic stenosis: Code(s): I35.0 - Nonrheumatic aortic (valve) stenosis Status: Acute Assessment and Plan: Patient presents with new onset acute diastolic heart failure and has been found to have severe aortic stenosis as well as diastolic dysfunction. She is improving, diuresing well but still on O2. Counseled patient and POA and extensively about aortic stenosis. This will progress with time and is a serious heart problem but potentially fixable. --Discussed evaluation for and eventual TAVR. They are interested in proceeding. This can be done as an outpatient. (2) Acute diastolic CHF (congestive heart failure): Code(s): I50.31 - Acute diastolic (congestive) heart failure Status: Acute Assessment and Plan: Diuresing, improving. Secondary to aortic stenosis with a component of diastolic heart failure. Her echo also suggested some segmental wall motion abnormalities which makes me wonder she has underlying CAD perhaps causing some ischemia after her four block walk uphill last week, and subsequent acute CHF. However her troponins were all basically normal and there were no acute changes on her EKG. BUN is increasing, we may need to change to p.o. diuretics soon. --cont IV diuretic --Agree w/ empagliflozin --Avoid hypotension; borderline as is --Daily BMP (3) Bacteremia: Code(s): R78.81 - Bacteremia Status: Acute Assessment and Plan: Found have Gram-positive cocci in clusters in 1 blood culture, Staph haemolyticus, which may be a contaminant. Repeat blood cultures are pending. (4) Lymphedema: Code(s): I89.0 - Lymphedema, not elsewhere classified Status: Acute Assessment and Plan: Treated by stenting a LE vein in the past by Dr. Field, and LE foot pumps. -- These increase venous return to the heart and can precipitate CHF in a vulnerable heart. Consider discontinuing this until her aortic stenosis has been addressed. (5) Chronic anemia: Code(s): D64.9 - Anemia, unspecified Status: Acute Assessment and Plan: No clinical bleeding. Subjective Date/time seen: 06/02/23 17:09 Interval history: Follow-up for new onset of diastolic heart failure secondary to severe aortic stenosis. Also history of COPD exacerbation and pneumonia. Date of service 06/02/2023: No shortness of breath at rest or with walking to the bathroom. Interested in pursuing TAVR. Continues to diurese well. Still on O2. One Blood culture was positive for Staph haemolyticus, thought to be a probable contaminant. I spoke to elissa garza. a chair and, on the phone. Telemetry: NSR Review of Systems Review of Systems: No chest pain or dizziness, edema slowly improving, no shortness of breath or nausea. Exam Const: General: cooperative and comfortable; No healthy appearing or confusion Orientation/consciousness: oriented to person, patient oriented x3 and No confusion Other: Pleasant obese lady, no distress HENMT: Mouth: Yes moist mucous membranes Eyes: General: appearance normal, both eyes and all related structures Neck: Neck: supple Resp: Effort & Inspection: normal respiratory effort Auscultation: rales (Rales persistent both bases) Cardio: Rate: regular rate Rhythm: regular rhythm Heart sounds: Murmur heart sound present (1-2/6 high-pitched harsh systolic murmur left upper sternal border) GI: Inspection: normal to inspection GI Palp: No abdominal tenderness Skin: Rashes: rashes noted Other: Hyperpigmentation and thickening of the skin of the lower extremities Neuro: General: oriented to person, patient oriented x3 and No confusion Extrem: Right lower extremity: edema Left lower extremity: edema Other: Moderate bilateral lower extremity edema Psych: Appearance: grossly normal Mental Status: mental status grossly normal Objective Data Vital Signs Vital Sig
[2023-06-02] MEDS: MELATONIN 5 MG TABLET 10 MG PO (21:34)
[2023-06-02] MEDS: CEFDINIR 300 MG CAPSULE PO (21:34)
[2023-06-02] MEDS: AZITHROMYCIN 250 MG TABLET 500 MG PO (21:34)
[2023-06-03] VITALS (28 sets, daily range): BP systolic 107–126; BP diastolic 60–80; PULSE 73–91; RESP 16–24; TEMP 36.3–36.6; O2SAT 64–99
[2023-06-03] MEDS: IPRATROPIUM BR 0.02% INH SOLN 0.5 MG/2.5 ML VIAL INHALATION ×4 (02:18→20:19)
[2023-06-03] MEDS: ALBUTEROL SULFATE NEB 2.5 MG/3 ML INH INHALATION ×4 (02:18→20:20)
[2023-06-03] MEDS: LEVOTHYROXINE SODIUM 100 MCG TABLET 200 MCG PO (05:39)
--- NOTE | 2023-06-03 08:38 | PCPTNOTE ---
Attempted to see patient for PT, however patient was eating breakfast.
--- NOTE | 2023-06-03 09:53 | PM.PNCARD ---
Progress Note: A&P Assessment and Plan (1) Aortic stenosis: Code(s): I35.0 - Nonrheumatic aortic (valve) stenosis Status: Acute Assessment and Plan: Patient presents with new onset acute diastolic heart failure and has been found to have severe aortic stenosis as well as diastolic dysfunction. She is improving, diuresing well but still on O2. Counseled patient and POA and extensively about aortic stenosis. This will progress with time and is a serious heart problem but potentially fixable. --Discussed evaluation for and eventual TAVR. Will arrange outpatient referral (2) Acute diastolic CHF (congestive heart failure): Code(s): I50.31 - Acute diastolic (congestive) heart failure Status: Acute Assessment and Plan: Diuresing, improving. Secondary to aortic stenosis with a component of diastolic heart failure. Her echo also suggested some segmental wall motion abnormalities which makes me wonder she has underlying CAD perhaps causing some ischemia after her four block walk uphill last week, and subsequent acute CHF. However her troponins were all basically normal and there were no acute changes on her EKG. BUN is increasing, we may need to change to p.o. diuretics soon. --cont IV diuretic --Agree w/ empagliflozin --Avoid hypotension; borderline as is --Daily BMP --will check CXR in the a.m. (3) Bacteremia: Code(s): R78.81 - Bacteremia Status: Acute Assessment and Plan: Found have Gram-positive cocci in clusters in 1 blood culture, Staph haemolyticus, which may be a contaminant. Repeat blood cultures NGTD (4) Lymphedema: Code(s): I89.0 - Lymphedema, not elsewhere classified Status: Acute Assessment and Plan: Treated by stenting a LE vein in the past by Dr. Field, and LE foot pumps. -- These increase venous return to the heart and can precipitate CHF in a vulnerable heart. Consider discontinuing this until her aortic stenosis has been addressed. (5) Chronic anemia: Code(s): D64.9 - Anemia, unspecified Status: Acute Assessment and Plan: No clinical bleeding. Subjective Date/time seen: 06/03/23 09:53 Interval history: Follow-up for new onset of diastolic heart failure secondary to severe aortic stenosis. Also history of COPD exacerbation and pneumonia. Date of service 06/02/2023: No shortness of breath at rest or with walking to the bathroom. Interested in pursuing TAVR. Continues to diurese well. Still on O2. One Blood culture was positive for Staph haemolyticus, thought to be a probable contaminant. I spoke to elissa garza. a chair and, on the phone. Telemetry: NSR Date of service 06/03/2023: Feeling a little better today. Slightly less short of breath although difficult to assess since she is not active, has not been out of bed today. Review of Systems Review of Systems: No chest pain or dizziness, edema slowly improving, no shortness of breath or nausea. Constitutional: Constitutional: Denies fever(s) Eyes: Eyes: Reports no additional eye complaints ENT: Denies epistaxis Cardiovascular: Cardiovascular: Denies chest pain, Denies pedal edema, Reports leg edema, Denies lightheadedness, Reports dyspnea and Reports dyspnea on exertion Respiratory: Respiratory: Denies chest congestion, Reports dyspnea and Reports dyspnea on exertion Gastrointestinal: Gastrointestinal: Denies abdominal pain and Denies hematochezia Genitourinary: Genitourinary: Denies hematuria Musculoskeletal: Musculoskeletal: Reports no additional musculoskeletal complaints Integumentary/Breasts: Skin/Breast: Reports system reviewed and no additional complaints, except as docu and Reports erythema Neurologic: Reports system reviewed and no additional complaints, except as documented, Denies behavioral changes and Denies confusion Psychiatric: Psychiatric: Denies behavioral changes and Denies confusion Exam Const: Genera
[2023-06-03] MEDS: FAMOTIDINE 20 MG TABLET PO (11:07)
[2023-06-03] MEDS: CALCIUM CARBONATE (TUMS) 500 MG (200 MG ELEMENTAL) PO ×2 (11:07→17:33)
[2023-06-03] MEDS: calcitrioL 0.25 MCG CAPSULE PO (11:07)
[2023-06-03] MEDS: FUROSEMIDE INJ 40 MG/4 ML VIAL IV PUSH (11:07)
[2023-06-03] MEDS: EMPAGLIFLOZIN 10 MG TABLET PO (11:07)
[2023-06-03] MEDS: CEFDINIR 300 MG CAPSULE PO ×2 (11:07→20:52)
[2023-06-03] MEDS: CYANOCOBALAMIN 1,000 MCG TABLET 1000 MCG PO (11:07)
[2023-06-03] MEDS: ASPIRIN 81 MG ENTERIC TABLET PO (11:07)
[2023-06-03] MEDS: MAGNESIUM OXIDE 400 MG TABLET PO ×2 (11:08→17:33)
[2023-06-03] MEDS: EUCERIN CREAM 120 GM JAR 1 APPLIC TOPICAL ×2 (11:08→17:34)
[2023-06-03] MEDS: OPTI-GEN TAB 2 TABLET PO ×2 (11:08→17:33)
--- NOTE | 2023-06-03 13:55 | PM.IMPN ---
Progress Note: A&P Assessment and Plan (1) Acute hypercapnic respiratory failure: Code(s): J96.02 - Acute respiratory failure with hypercapnia Status: Acute Assessment and Plan: Patient was admitted to the IMU on BiPAP. Etiology of her acute respiratory failure is somewhat unclear. Dysphagia unlikely: Speech therapy felt patient could swallow safely. No further speech therapy needs. The notes mentions she has COPD the patient but she is a lifelong nonsmoker. No history of CHF although chest x-ray is consistent with pulmonary edema. She has been started on antibiotics but no cough, fever or leukocytosis to suggest infectious process. ABG does show CO2 retention. Consider that her sleep apnea may not be optimally treated. Most likely etiology is the pulmonary edema/CHF resulting in respiratory distress. Troponins are negative x3. Treated with Lasix IV with good response. Solu-Medrol stopped since there was no wheezing on presentation nor currently. Continue nebulizer treatments for now. Able to wean BiPAP to use at night, with naps and as needed. ABG today showing 7.46/41/85 pm 50% FiO2 Echo showing EF 60-65%, basal inferior and lateral wall HK, Grade II diastolic dysfuction, moderate pulm HTN, severe (0.8cm2) and pulmonary shunt. CHF probably acute diastolic CHF felt related to severe . She also may be need chronic O2 during the day due to shunt. BP soft so will back off on lasix. Cardiology consult. Add empagliflozin. (2) Bacteremia: Code(s): R78.81 - Bacteremia Status: Acute Assessment and Plan: BCx (1of2 sets) positive for GPC in clusters anaerobic only. Suspect this is contaminate but did present with SOB and respiratory failure. Follow on BCx results. Continue Vanco Repeat BCx Consider BRANDT if persistent bacteremia Suspect this is a contaminant, repeat pending, NGTD, monitor (3) Aortic stenosis: Code(s): I35.0 - Nonrheumatic aortic (valve) stenosis Status: Acute Assessment and Plan: Consider TAVR outpatient (4) S/P cqasluwn-go-gcvsbgmpl shunt: Code(s): Z95.818 - Presence of other cardiac implants and grafts Status: Acute Assessment and Plan: As above. (5) CHF (congestive heart failure): Code(s): I50.9 - Heart failure, unspecified Status: Acute Assessment and Plan: Acute diastolic CHF. As above Avoid lumph pumps until resolved (6) Essential hypertension, benign: Code(s): I10 - Essential (primary) hypertension Status: Acute Assessment and Plan: Patient's blood pressure was reviewed on 06/03 Blood pressure soft at times Will continue to monitor (7) Chronic anemia: Code(s): D64.9 - Anemia, unspecified Status: Acute Assessment and Plan: Hemoglobin low on previous checks but n recent Hgb. Hgb 11.9 on admission and has dropped to 9.7 Macrocytosis noted. B12/folate normal Check iron studies (8) Paroxysmal atrial fibrillation: Code(s): I48.0 - Paroxysmal atrial fibrillation Status: Acute Assessment and Plan: Patient with paroxysmal AFib. No evidence recurrence on telemetry. She is not anticoagulation chronically. She is not on rate-controlling agents on admission either. Continue to monitor on telemetry (9) Hypothyroidism: Code(s): E03.9 - Hypothyroidism, unspecified Status: Acute Assessment and Plan: TSH low but FT4 normal. Will need this rechecked once she is better Plan DVT Prophylaxis - SCDs Code status - Full Subjective Date/time seen: 06/03/23 13:55 Interval history: 78yo female with pAFib, PAD, NEVIN requiring NIV with 4L O2 bleed-in and HTN here for increasing shortness of breath.?Not on O2 during the day. No overnight events noted. No chest pain, shortness of breath improve. No nausea, vomiting or diarrhea. No fevers or chills. Review of Systems Review of Sys
[2023-06-03 14:47] LABS: Basophils Percent Auto 0.5 % (0.2-1.2); Eosinophils Absolute Auto 0.1 K/mm3 (0-0.3); Eosinophils Percent Auto 2.5 % (0-4.4); Hemoglobin 11.3 g/dL (12.0-15.0); Immature Granulocyte Absolute 0.03 K/mm3 (0.00-0.031); Immature Granulocyte Percent A 0.5 % (0-0.5); Lymphocytes Absolute Auto 0.82 K/mm3 (0.9-3.2); Lymphocytes Percent Auto 14.5 % (18.3-44.2); Mean Corpuscular HGB Conc 29.7 g/dl (32-36); Mean Corpuscular Hemoglobin 30.1 pg (26-34); Mean Corpuscular Volume 101.1 fl (80-100); Mean Platelet Volume 9.8 fl (7.4-10.4); Monocytes Absolute Auto 0.6 K/mm3 (0.1-0.6); Monocytes Percent Auto 10.6 % (2.6-8.5); Neutrophils Percent Auto 71.4 % (45.5-73.1); Platelet Count Result 152 k/mm3 (150-375); Red Blood Count 3.76 M/mm3 (4.2-5.4); Red Cell Distribution Width 16.1 % (11.5-14.5); White Blood Count 5.7 K/mm3 (4.5-10.0)
[2023-06-03 15:03] LABS: Alanine Aminotransferase 15 U/L (6-35); Albumin Level 3.8 g/dL (3.5-5.1); Alkaline Phosphatase 64 U/L (38-126); Anion Gap 6 mmol/L (8-16); Aspartate Amino Transferase 20 U/L (14-36); Bilirubin,Total 1.1 mg/dL (0.2-1.3); Blood Urea Nitrogen 29 mg/dL (7-17); Carbon Dioxide 38 mmol/L (22-30); Chloride 94 mmol/L (98-107); Estimated CRCL calculation 53 ml/min; Estimated Glomerular Filt Rate 48; Glucose 95 mg/dL (65-110); Potassium 4.3 mmol/L (3.4-5.0); Sodium 138 mmol/L (137-145)
[2023-06-03 15:16] LABS: Hypochromasia 1+ (NORMAL); Platelet Estimate Adequate (Adequate); Schistocytes None Seen (NORMAL)
--- NOTE | 2023-06-03 18:40 | ADMGEN ---
This patient, Brandy Cooper, was admitted to Medical Room 253-01. Patient/family oriented to hospital policies and general routines including ID bracelet, bed and alarms, visiting hours, pain management, procedures, bathroom and other care routines, personal items, smoking policy, room service/diet, and visiting hours. Information on how to activate the Rapid Response Team has been discussed. Patient/Family are encouraged to report perceived risks to care and to ask questions if they do not understand what they are told or what they should do.
[2023-06-03] MEDS: AZITHROMYCIN 250 MG TABLET 500 MG PO (20:52)
[2023-06-03] MEDS: MELATONIN 5 MG TABLET 10 MG PO (20:52)
[2023-06-03] MEDS: ACETAMINOPHEN 325 MG TABLET 650 MG PO (20:56)
[2023-06-04] VITALS (20 sets, daily range): BP systolic 118–119; BP diastolic 40–75; PULSE 60–103; RESP 14–22; TEMP 36.3–36.6; O2SAT 92–98
[2023-06-04] MEDS: IPRATROPIUM BR 0.02% INH SOLN 0.5 MG/2.5 ML VIAL INHALATION ×3 (01:25→20:46)
[2023-06-04] MEDS: ALBUTEROL SULFATE NEB 2.5 MG/3 ML INH INHALATION ×3 (01:25→20:48)
[2023-06-04] MEDS: LEVOTHYROXINE SODIUM 100 MCG TABLET 200 MCG PO (05:54)
[2023-06-04 06:13] LABS: Basophils Percent Auto 0.7 % (0.2-1.2); Eosinophils Absolute Auto 0.2 K/mm3 (0-0.3); Eosinophils Percent Auto 3.9 % (0-4.4); Hematocrit 34.7 % (37.0-47.0); Hemoglobin 10.3 g/dL (12.0-15.0); Immature Granulocyte Absolute 0.02 K/mm3 (0.00-0.031); Immature Granulocyte Percent A 0.5 % (0-0.5); Mean Corpuscular HGB Conc 29.7 g/dl (32-36); Mean Corpuscular Hemoglobin 29.9 pg (26-34); Mean Corpuscular Volume 100.9 fl (80-100); Mean Platelet Volume 9.8 fl (7.4-10.4); Monocytes Absolute Auto 0.5 K/mm3 (0.1-0.6); Monocytes Percent Auto 11.4 % (2.6-8.5); Neutrophils Absolute Auto 2.7 K/mm3 (1.3-6.7); Neutrophils Percent Auto 66.5 % (45.5-73.1); Platelet Count Result 133 k/mm3 (150-375); Red Blood Count 3.44 M/mm3 (4.2-5.4); White Blood Count 4.1 K/mm3 (4.5-10.0)
[2023-06-04 06:24] LABS: Alanine Aminotransferase 12 U/L (6-35); Albumin Level 3.4 g/dL (3.5-5.1); Alkaline Phosphatase 55 U/L (38-126); Anion Gap 6 mmol/L (8-16); Aspartate Amino Transferase 16 U/L (14-36); Bilirubin,Total 0.8 mg/dL (0.2-1.3); Blood Urea Nitrogen 28 mg/dL (7-17); Calcium 8.8 mg/dL (8.4-10.2); Carbon Dioxide 36 mmol/L (22-30); Chloride 96 mmol/L (98-107); Estimated CRCL calculation 58 ml/min; Estimated Glomerular Filt Rate 54; Glucose 81 mg/dL (65-110); Potassium 4.1 mmol/L (3.4-5.0); Sodium 138 mmol/L (137-145)
[2023-06-04 06:37] LABS: Anisocytosis 1+ (NORMAL); Hypochromasia 1+ (NORMAL); Stomatocytes 1+ (NORMAL)
[2023-06-04 06:38] LABS: Basophilic Stippling 1+ (NORMAL); Schistocytes None Seen (NORMAL)
[2023-06-04] MEDS: ASPIRIN 81 MG ENTERIC TABLET PO (09:43)
[2023-06-04] MEDS: CEFDINIR 300 MG CAPSULE PO ×2 (09:43→20:05)
[2023-06-04] MEDS: calcitrioL 0.25 MCG CAPSULE PO (09:44)
[2023-06-04] MEDS: EMPAGLIFLOZIN 10 MG TABLET PO (09:44)
[2023-06-04] MEDS: OPTI-GEN TAB 2 TABLET PO ×2 (09:44→17:35)
[2023-06-04] MEDS: FAMOTIDINE 20 MG TABLET PO (09:44)
[2023-06-04] MEDS: CYANOCOBALAMIN 1,000 MCG TABLET 1000 MCG PO (09:44)
[2023-06-04] MEDS: CALCIUM CARBONATE (TUMS) 500 MG (200 MG ELEMENTAL) PO ×3 (09:44→17:35)
[2023-06-04] MEDS: EUCERIN CREAM 120 GM JAR 1 APPLIC TOPICAL ×2 (09:44→17:35)
[2023-06-04] MEDS: MAGNESIUM OXIDE 400 MG TABLET PO ×2 (09:44→17:35)
[2023-06-04] MEDS: FUROSEMIDE INJ 40 MG/4 ML VIAL IV PUSH (09:49)
--- NOTE | 2023-06-04 10:08 | PCRCNOTE ---
Window of time for administration has passed. See next scheduled administration.
--- NOTE | 2023-06-04 12:23 | PM.IMPN ---
Progress Note: A&P Assessment and Plan (1) Acute hypercapnic respiratory failure: Code(s): J96.02 - Acute respiratory failure with hypercapnia Status: Acute Assessment and Plan: Patient was admitted to the IMU on BiPAP. Etiology of her acute respiratory failure is somewhat unclear. Dysphagia unlikely: Speech therapy felt patient could swallow safely. No further speech therapy needs. The ER note mentions she has COPD but she is a lifelong nonsmoker, no concern for COPD No history of CHF although chest x-ray is consistent with pulmonary edema. She has been started on antibiotics but no cough, fever or leukocytosis to suggest infectious process. ABG does show CO2 retention. Consider that her sleep apnea may not be optimally treated. Most likely etiology is the pulmonary edema/CHF resulting in respiratory distress. Troponins are negative x3. Treated with Lasix IV with good response. Solu-Medrol stopped since there was no wheezing on presentation nor currently. Continue nebulizer treatments for now. Able to wean BiPAP to use at night, with naps and as needed. ABG today showing 7.46/41/85 pm 50% FiO2 Echo showing EF 60-65%, basal inferior and lateral wall HK, Grade II diastolic dysfuction, moderate pulm HTN, severe (0.8cm2) and pulmonary shunt. CHF probably acute diastolic CHF felt related to severe . She also may be need chronic O2 during the day due to shunt. BP soft so will back off on lasix. Cardiology consult. Add empagliflozin. (2) Bacteremia: Code(s): R78.81 - Bacteremia Status: Acute Assessment and Plan: BCx (1of2 sets) positive for GPC in clusters anaerobic only. Suspect this is contaminate but did present with SOB and respiratory failure. Follow on BCx results. Continue Vanco Repeat BCx Consider BRANDT if persistent bacteremia Suspect this is a contaminant, repeat pending, NGTD, monitor (3) Aortic stenosis: Code(s): I35.0 - Nonrheumatic aortic (valve) stenosis Status: Acute Assessment and Plan: Consider TAVR outpatient (4) S/P spvxzrtv-vi-tqoacbtlg shunt: Code(s): Z95.818 - Presence of other cardiac implants and grafts Status: Acute Assessment and Plan: As above. (5) CHF (congestive heart failure): Code(s): I50.9 - Heart failure, unspecified Status: Acute Assessment and Plan: Acute diastolic CHF. As above Avoid lumph pumps until resolved (6) Essential hypertension, benign: Code(s): I10 - Essential (primary) hypertension Status: Acute Assessment and Plan: Patient's blood pressure was reviewed on 06/03 Blood pressure soft at times Will continue to monitor (7) Chronic anemia: Code(s): D64.9 - Anemia, unspecified Status: Acute Assessment and Plan: Hemoglobin low on previous checks but n recent Hgb. Hgb 11.9 on admission and has dropped to 9.7 Macrocytosis noted. B12/folate normal Check iron studies (8) Paroxysmal atrial fibrillation: Code(s): I48.0 - Paroxysmal atrial fibrillation Status: Acute Assessment and Plan: Patient with paroxysmal AFib. No evidence recurrence on telemetry. She is not anticoagulation chronically. She is not on rate-controlling agents on admission either. Continue to monitor on telemetry (9) Hypothyroidism: Code(s): E03.9 - Hypothyroidism, unspecified Status: Acute Assessment and Plan: TSH low but FT4 normal. Will need this rechecked once she is better (10) Pneumonia: Code(s): J18.9 - Pneumonia, unspecified organism Status: Acute Assessment and Plan: Continue antibiotics, improving Plan DVT Prophylaxis - SCDs Code status - Full Subjective Date/time seen: 06/04/23 12:23 Interval history: 78yo female with pAFib, PAD, NEVIN requiring NIV with 4L O2 bleed-in and HTN here for increasing shortness of breath.?Not on O2 during the day.
--- NOTE | 2023-06-04 15:50 | PM.PNCARD ---
Progress Note: A&P Assessment and Plan (1) Acute diastolic CHF (congestive heart failure): Code(s): I50.31 - Acute diastolic (congestive) heart failure Status: Acute (2) Aortic stenosis: Code(s): I35.0 - Nonrheumatic aortic (valve) stenosis Status: Acute Plan 78-year-old lady presenting with significant shortness of breath. Has been diuresed and does feel better. Echocardiogram and physical exam indicate evidence of severe aortic valve stenosis. As per my partner she will require outpatient follow-up of this and arrangement for workup to evaluate her as a candidate for aortic valve replacement. She seems to understand this well. I will ensure that outpatient follow-up is arranged in my office following this discharge Trever Finney MD [facility] Subjective Date/time seen: date of service:06/04/23 15:50 Interval history: Follow-up for new onset of diastolic heart failure secondary to severe aortic stenosis. Also history of COPD exacerbation and pneumonia. Date of service 06/02/2023: No shortness of breath at rest or with walking to the bathroom. Interested in pursuing TAVR. Continues to diurese well. Still on O2. One Blood culture was positive for Staph haemolyticus, thought to be a probable contaminant. I spoke to colby garza a chair and, on the phone. Telemetry: NSR Date of service 06/03/2023: Feeling a little better today. Slightly less short of breath although difficult to assess since she is not active, has not been out of bed today. 06/04/2023: Patient was sitting in bedside chair a sleep upon entering the room upon awakening she feels well and offers no complaints at this time Exam Const: General: cooperative, comfortable and no acute distress; No healthy appearing or confusion Orientation/consciousness: oriented to person, patient oriented x3 and No confusion Other: Pleasant obese lady, no distress HENMT: Mouth: Yes moist mucous membranes Other: Missing most teeth Eyes: General: appearance normal, both eyes and all related structures EOM: EOMs intact bilaterally Neck: Neck: supple and no JVD Thyroid: thyroid normal (No thyromegaly) Carotids: bruit (Versus transmitted murmur) bilateral Resp: Effort & Inspection: normal respiratory effort Auscultation: clear to auscultation bilaterally and rales (Rales persistent both bases) Cardio: Rate: regular rate Rhythm: regular rhythm Heart sounds: Murmur heart sound present (1-2/6 high-pitched harsh systolic murmur left upper sternal border) Other: Pedal pulses not easily palpable GI: Inspection: normal to inspection and distended Other: Obese, abdominal hernia present Skin: General skin exam: rashes Rashes: rashes noted Other: Hyperpigmentation and thickening of the skin of the lower extremities Neuro: General: oriented to person, patient oriented x3 and No confusion Extrem: Right lower extremity: edema Left lower extremity: edema Other: Moderate bilateral lower extremity edema Psych: Appearance: grossly normal Mental Status: mental status grossly normal Objective Data Vital Signs Vital Signs: Vital Signs - 24 hr 06/03/23 16:27 06/03/23 16:00 06/03/23 18:00 Temperature 36.3 C L Pulse Rate 74 78 78 Respiratory Rate 20 Blood Pressure 107/64 Pulse Oximetry 99 Oxygen Delivery Oxygen Flow Rate 06/03/23 18:40 06/03/23 20:20 06/03/23 20:25 Temperature 36.3 C L Pulse Rate 77 91 78 Respiratory Rate 16 20 Blood Pressure 126/68 Pulse Oximetry 64 L 92 Oxygen Delivery Nasal Cannula Oxygen Flow Rate 5 06/03/23 20:26 06/03/23 20:00 06/03/23 20:00 Temperature Pulse Rate 86 84 Respiratory Rate 20 Blood Pressure Pulse Oximetry 98 Oxygen Delivery Nasal Cannula Oxygen Flow Rate 5 06/03/23 21:34 06/03/23 22:05 06/04/23 00:00 Temperature 36.5 C Pulse Rate 89 86 81 Respiratory Rate 18 20 Blood Pressure 115/80 Pul
[2023-06-04] MEDS: MELATONIN 5 MG TABLET 10 MG PO (20:04)
[2023-06-04] MEDS: ACETAMINOPHEN 325 MG TABLET 650 MG PO (20:04)
[2023-06-05] VITALS (25 sets, daily range): BP systolic 110–113; BP diastolic 54–58; PULSE 73–102; RESP 18–24; TEMP 36.3–36.8; O2SAT 82–96
[2023-06-05] MEDS: IPRATROPIUM BR 0.02% INH SOLN 0.5 MG/2.5 ML VIAL INHALATION ×4 (02:50→21:28)
[2023-06-05] MEDS: ALBUTEROL SULFATE NEB 2.5 MG/3 ML INH INHALATION ×4 (02:51→21:27)
[2023-06-05] MEDS: LEVOTHYROXINE SODIUM 100 MCG TABLET 200 MCG PO (05:58)
[2023-06-05 06:08] LABS: Basophils Percent Auto 0.4 % (0.2-1.2); Eosinophils Absolute Auto 0.1 K/mm3 (0-0.3); Hematocrit 33.8 % (37.0-47.0); Hemoglobin 10.2 g/dL (12.0-15.0); Immature Granulocyte Absolute 0.01 K/mm3 (0.00-0.031); Immature Granulocyte Percent A 0.2 % (0-0.5); Immature Platelet Fraction Pct 3.4 % (0.9-11.2); Lymphocytes Absolute Auto 0.78 K/mm3 (0.9-3.2); Lymphocytes Percent Auto 16.9 % (18.3-44.2); Mean Corpuscular HGB Conc 30.2 g/dl (32-36); Mean Corpuscular Hemoglobin 30.4 pg (26-34); Mean Corpuscular Volume 100.6 fl (80-100); Mean Platelet Volume 10.2 fl (7.4-10.4); Monocytes Absolute Auto 0.5 K/mm3 (0.1-0.6); Monocytes Percent Auto 11.3 % (2.6-8.5); Neutrophils Absolute Auto 3.1 K/mm3 (1.3-6.7); Neutrophils Percent Auto 68.2 % (45.5-73.1); Platelet Count Result 147 k/mm3 (150-375); Red Blood Count 3.36 M/mm3 (4.2-5.4); Red Cell Distribution Width 15.9 % (11.5-14.5); White Blood Count 4.6 K/mm3 (4.5-10.0)
[2023-06-05 06:20] LABS: Alanine Aminotransferase 12 U/L (6-35); Albumin Level 3.2 g/dL (3.5-5.1); Alkaline Phosphatase 55 U/L (38-126); Anion Gap 4 mmol/L (8-16); Aspartate Amino Transferase 16 U/L (14-36); Bilirubin,Total 0.9 mg/dL (0.2-1.3); Blood Urea Nitrogen 31 mg/dL (7-17); Calcium 8.7 mg/dL (8.4-10.2); Carbon Dioxide 39 mmol/L (22-30); Chloride 95 mmol/L (98-107); Estimated CRCL calculation 45 ml/min; Estimated Glomerular Filt Rate 40; Glucose 80 mg/dL (65-110); Sodium 138 mmol/L (137-145)
[2023-06-05] MEDS: EMPAGLIFLOZIN 10 MG TABLET PO (08:20)
[2023-06-05] MEDS: MAGNESIUM OXIDE 400 MG TABLET PO ×2 (08:20→16:15)
[2023-06-05] MEDS: CEFDINIR 300 MG CAPSULE PO ×2 (08:20→20:38)
[2023-06-05] MEDS: OPTI-GEN TAB 2 TABLET PO ×2 (08:20→16:15)
[2023-06-05] MEDS: FUROSEMIDE INJ 40 MG/4 ML VIAL IV PUSH (08:21)
[2023-06-05] MEDS: calcitrioL 0.25 MCG CAPSULE PO (08:21)
[2023-06-05] MEDS: CALCIUM CARBONATE (TUMS) 500 MG (200 MG ELEMENTAL) PO ×3 (08:21→16:15)
[2023-06-05] MEDS: CYANOCOBALAMIN 1,000 MCG TABLET 1000 MCG PO (08:21)
[2023-06-05] MEDS: EUCERIN CREAM 120 GM JAR 1 APPLIC TOPICAL ×2 (08:21→16:16)
[2023-06-05] MEDS: ASPIRIN 81 MG ENTERIC TABLET PO (08:21)
[2023-06-05] MEDS: FAMOTIDINE 20 MG TABLET PO (08:21)
--- NOTE | 2023-06-05 11:07 | PM.DS ---
DS: Admitting Diagnosis Discharge Date 06/05/23 Admitting Diagnosis sob DS: Discharge Diagnosis Discharge Diagnosis (1) Acute hypercapnic respiratory failure: Code(s): J96.02 - Acute respiratory failure with hypercapnia Status: Acute Assessment and Plan: Patient was admitted to the IMU on BiPAP. Etiology of her acute respiratory failure is somewhat unclear. Dysphagia unlikely: Speech therapy felt patient could swallow safely. No further speech therapy needs. The ER note mentions she has COPD but she is a lifelong nonsmoker, no concern for COPD No history of CHF although chest x-ray is consistent with pulmonary edema. She has been started on antibiotics but no cough, fever or leukocytosis to suggest infectious process. ABG does show CO2 retention. Consider that her sleep apnea may not be optimally treated. Most likely etiology is the pulmonary edema/CHF resulting in respiratory distress. Troponins are negative x3. Treated with Lasix IV with good response. Solu-Medrol stopped since there was no wheezing on presentation nor currently. Continue nebulizer treatments for now. Able to wean BiPAP to use at night, with naps and as needed. ABG today showing 7.46/41/85 pm 50% FiO2 Echo showing EF 60-65%, basal inferior and lateral wall HK, Grade II diastolic dysfuction, moderate pulm HTN, severe (0.8cm2) and pulmonary shunt. CHF probably acute diastolic CHF felt related to severe . She also may be need chronic O2 during the day due to shunt. BP soft so will back off on lasix. Cardiology consult. Add empagliflozin. (2) Bacteremia: Code(s): R78.81 - Bacteremia Status: Acute Assessment and Plan: BCx (1of2 sets) positive for GPC in clusters anaerobic only. Suspect this is contaminate but did present with SOB and respiratory failure. Follow on BCx results. Continue Vanco Repeat BCx Consider BRANDT if persistent bacteremia Suspect this is a contaminant, repeat pending, NGTD, monitor (3) Aortic stenosis: Code(s): I35.0 - Nonrheumatic aortic (valve) stenosis Status: Acute Assessment and Plan: Consider TAVR outpatient (4) S/P kadwyffl-fa-jpbtbyiuf shunt: Code(s): Z95.818 - Presence of other cardiac implants and grafts Status: Acute Assessment and Plan: As above. (5) CHF (congestive heart failure): Code(s): I50.9 - Heart failure, unspecified Status: Acute Assessment and Plan: Acute diastolic CHF. As above Avoid lumph pumps until resolved (6) Essential hypertension, benign: Code(s): I10 - Essential (primary) hypertension Status: Acute Assessment and Plan: Patient's blood pressure was reviewed on 06/03 Blood pressure soft at times Will continue to monitor (7) Chronic anemia: Code(s): D64.9 - Anemia, unspecified Status: Acute Assessment and Plan: Hemoglobin low on previous checks but n recent Hgb. Hgb 11.9 on admission and has dropped to 9.7 Macrocytosis noted. B12/folate normal Check iron studies (8) Paroxysmal atrial fibrillation: Code(s): I48.0 - Paroxysmal atrial fibrillation Status: Acute Assessment and Plan: Patient with paroxysmal AFib. No evidence recurrence on telemetry. She is not anticoagulation chronically. She is not on rate-controlling agents on admission either. Continue to monitor on telemetry (9) Hypothyroidism: Code(s): E03.9 - Hypothyroidism, unspecified Status: Acute Assessment and Plan: TSH low but FT4 normal. Will need this rechecked once she is better (10) Pneumonia: Code(s): J18.9 - Pneumonia, unspecified organism Status: Acute Assessment and Plan: Continue antibiotics, improving Plan DVT Prophylaxis - SCDs Code status - Full DS: Summary Hospital Course Hospital Course: 78yo female with pAFib, PAD, NEVIN requiring NIV with 4L O2 bleed-in and HTN here
[2023-06-05 13:54] LABS: SARS-CoV-2 RNA PCR Negative (Negative)
--- NOTE | 2023-06-05 15:33 | PC.NURSE ---
This science writer has been working on discharge order since order was put in. Pt has oxygen at facility which is assisted living but not portable to be able to go to dinning area. Respiratory made aware with order. Respiratory has been working with pt and poa to get oxygen ordered due to poa wanting the same oxygen company they have now. respiratory stated that she will get to working on the discharge when able, due to a lot of stat orders, stated it might not be today it might have to be tomorrow.
--- NOTE | 2023-06-05 16:15 | PM.PNCARD ---
Progress Note: A&P Assessment and Plan (1) Aortic stenosis: Code(s): I35.0 - Nonrheumatic aortic (valve) stenosis Status: Acute Assessment and Plan: Patient presents with new onset acute diastolic heart failure and has been found to have severe aortic stenosis as well as diastolic dysfunction. She is improving, diuresing well but still on O2. --will assure that patient has prompt follow-up in the office to pursue TAVR. Recommended the patient's POA/niece attend the visit as well. (2) Acute diastolic CHF (congestive heart failure): Code(s): I50.31 - Acute diastolic (congestive) heart failure Status: Acute Assessment and Plan: Diuresing, improving. Secondary to aortic stenosis with a component of diastolic heart failure. Her echo also suggested some segmental wall motion abnormalities which makes me wonder she has underlying CAD perhaps causing some ischemia after her four block walk uphill last week, and subsequent acute CHF. However her troponins were all basically normal and there were no acute changes on her EKG. BUN and creatinine have increased somewhat. --change IV furosemide to 40 mg p.o. daily (home dose previously was 20 mg qd) --Agree w/ empagliflozin --BMP as outpatient in 1 or 2 weeks --wean oxygen off and DC Delgado --discharge today or tomorrow ? (3) Bacteremia: Code(s): R78.81 - Bacteremia Status: Acute Assessment and Plan: Found have Gram-positive cocci in clusters in 1 blood culture, Staph haemolyticus, which appears to be a contaminant. Repeat blood cultures were negative. (4) Lymphedema: Code(s): I89.0 - Lymphedema, not elsewhere classified Status: Acute Assessment and Plan: Treated by stenting a LE vein in the past by Dr. Field, and LE foot pumps. --since the patient has been diuresed is likely that she can tolerate the foot pumps as an outpatient (5) Chronic anemia: Code(s): D64.9 - Anemia, unspecified Status: Acute Assessment and Plan: No clinical bleeding. Subjective Date/time seen: 06/05/23 16:15 Interval history: Follow-up for new onset of diastolic heart failure secondary to severe aortic stenosis. Also history of COPD exacerbation and pneumonia. 06/02/2023: No shortness of breath at rest or with walking to the bathroom. Interested in pursuing TAVR. Continues to diurese well. Still on O2. One Blood culture was positive for Staph haemolyticus, thought to be a probable contaminant. I spoke to colby garza a chair and, on the phone. Telemetry: NSR 06/03/2023: Feeling a little better today. Slightly less short of breath although difficult to assess since she is not active, has not been out of bed today. 06/04/2023: Patient was sitting in bedside chair a sleep upon entering the room upon awakening she feels well and offers no complaints at this time 06/05/2023: Breathing is better, fatigued with physical activity. Still on 4 L O2 and has Delgado in. Diuresed another 2100 cc yesterday. Chest x-ray yesterday showed ?stable interstitial opacities and patchy airspace disease consistent with pulmonary edema versus pneumonia. ? unable to pull up to personally review. Review of Systems Review of Systems: Swelling improved though not gone. Breathing better. No chest pain or dizziness. No abdominal complaints. Exam Const: General: cooperative and comfortable; No confusion Orientation/consciousness: oriented to person, patient oriented x3 and No confusion Other: Sitting up in chair, wearing O2, Delgado present, no distress HENMT: Mouth: Yes moist mucous membranes Eyes: General: appearance normal, both eyes and all related structures Neck: Neck: supple Resp: Effort & Inspection: normal respiratory effort Auscultation: clear to auscultation bilaterally Cardio: Rate: regular rate Rhythm: regular rhythm Heart sounds: Murmur heart sound present Other: 3/6 harsh systol
--- NOTE | 2023-06-05 16:42 | HOMEO2EVAL ---
Evaluation was performed at [facility] Home Oxygen Evaluation RC: Home Oxygen (O2) Evaluation Start: 06/05/23 13:45 Freq: ONCE Status: Active Protocol: RPE Activity Type Activity Date Activity User E-sign Co-sign Detail Recorded Client Recorded Date Recorded By Document 06/05/23 14:00 [email or web address] [email or web address] 06/05/23 16:40 VLS Document 06/05/23 14:01 [email or web address] [email or web address] 06/05/23 16:40 VLS Document 06/05/23 14:02 [email or web address] [email or web address] 06/05/23 16:40 VLS Document 06/05/23 14:03 [email or web address] [email or web address] 06/05/23 16:40 VLS Document 06/05/23 14:04 [email or web address] [email or web address] 06/05/23 16:40 VLS Document 06/05/23 14:05 [email or web address] [email or web address] 06/05/23 16:42 VLS 06/05/23 06/05/23 06/05/23 14:00 14:01 14:02 Home O2 Evaluation [Oxygen] -Test Phase Resting Resting Resting -Oxygen Delivery Room Air Nasal Cannula Nasal Cannula -Oxygen Flow Rate (L/min) 1 2 [Pulse Oximetry] -Pulse Oximetry (90-100 %) 82 L 85 L 87 L [Pulse Rate] -Pulse Rate (60-100 beats/min) 88 89 92 [Evaluation] -Activity Tolerance [Exercise] -Ambulation Distance (feet) -Ambulation Distance (meters) [Comments] -Home Oxygen Evaluation Comments [Charges] -Treatment Charges O2 Evaluation - Inpatient 06/05/23 06/05/23 06/05/23 14:03 14:04 14:05 Home O2 Evaluation [Oxygen] -Test Phase Resting Resting Exercise -Oxygen Delivery Nasal Cannula Nasal Cannula -Oxygen Flow Rate (L/min) 3 4 [Pulse Oximetry] -Pulse Oximetry (90-100 %) 87 L 92 90 [Pulse Rate] -Pulse Rate (60-100 beats/min) 96 98 102 H [Evaluation] -Activity Tolerance Poor [Exercise] -Ambulation Distance (feet) 10 -Ambulation Distance (meters) 3.04 [Comments] -Home Oxygen Evaluation Comments pt only able to walk 10 ft. very weak and sob [Charges] -Treatment Charges
[2023-06-05] MEDS: MELATONIN 5 MG TABLET 10 MG PO (20:38)
[2023-06-06] VITALS (13 sets, daily range): BP systolic 108–127; BP diastolic 64–75; PULSE 72–90; RESP 16–22; TEMP 36.4–37.1; O2SAT 93–100
[2023-06-06] MEDS: IPRATROPIUM BR 0.02% INH SOLN 0.5 MG/2.5 ML VIAL INHALATION ×3 (02:44→13:14)
[2023-06-06] MEDS: ALBUTEROL SULFATE NEB 2.5 MG/3 ML INH INHALATION ×3 (02:44→13:14)
[2023-06-06] MEDS: LEVOTHYROXINE SODIUM 100 MCG TABLET 200 MCG PO (06:09)
[2023-06-06 06:12] LABS: Basophils Percent Auto 0.3 % (0.2-1.2); Eosinophils Absolute Auto 0.2 K/mm3 (0-0.3); Eosinophils Percent Auto 2.3 % (0-4.4); Hematocrit 34.6 % (37.0-47.0); Hemoglobin 10.2 g/dL (12.0-15.0); Immature Granulocyte Absolute 0.02 K/mm3 (0.00-0.031); Immature Granulocyte Percent A 0.3 % (0-0.5); Lymphocytes Percent Auto 9.3 % (18.3-44.2); Mean Corpuscular HGB Conc 29.5 g/dl (32-36); Mean Corpuscular Hemoglobin 29.3 pg (26-34); Mean Corpuscular Volume 99.4 fl (80-100); Mean Platelet Volume 10.2 fl (7.4-10.4); Monocytes Absolute Auto 0.6 K/mm3 (0.1-0.6); Monocytes Percent Auto 9.5 % (2.6-8.5); Neutrophils Percent Auto 78.3 % (45.5-73.1); Platelet Count Result 153 k/mm3 (150-375); Red Blood Count 3.48 M/mm3 (4.2-5.4); White Blood Count 6.4 K/mm3 (4.5-10.0)
[2023-06-06 06:18] LABS: Alanine Aminotransferase 12 U/L (6-35); Albumin Level 3.3 g/dL (3.5-5.1); Alkaline Phosphatase 57 U/L (38-126); Anion Gap 3 mmol/L (8-16); Aspartate Amino Transferase 16 U/L (14-36); Blood Urea Nitrogen 35 mg/dL (7-17); Calcium 8.7 mg/dL (8.4-10.2); Carbon Dioxide 39 mmol/L (22-30); Chloride 97 mmol/L (98-107); Estimated CRCL calculation 52 ml/min; Estimated Glomerular Filt Rate 48; Glucose 88 mg/dL (65-110); Potassium 3.8 mmol/L (3.4-5.0); Sodium 139 mmol/L (137-145)
[2023-06-06 07:57] LABS: Anisocytosis 1+ (NORMAL); Hypochromasia 1+ (NORMAL); Platelet Estimate Adequate (Adequate); Schistocytes None Seen (NORMAL); Stomatocytes 1+ (NORMAL)
[2023-06-06] MEDS: OPTI-GEN TAB 2 TABLET PO (09:16)
[2023-06-06] MEDS: FAMOTIDINE 20 MG TABLET PO (09:16)
[2023-06-06] MEDS: CALCIUM CARBONATE (TUMS) 500 MG (200 MG ELEMENTAL) PO ×2 (09:16→12:41)
[2023-06-06] MEDS: EMPAGLIFLOZIN 10 MG TABLET PO (09:16)
[2023-06-06] MEDS: ASPIRIN 81 MG ENTERIC TABLET PO (09:16)
[2023-06-06] MEDS: MAGNESIUM OXIDE 400 MG TABLET PO (09:16)
[2023-06-06] MEDS: CEFDINIR 300 MG CAPSULE PO (09:16)
[2023-06-06] MEDS: CYANOCOBALAMIN 1,000 MCG TABLET 1000 MCG PO (09:16)
[2023-06-06] MEDS: EUCERIN CREAM 120 GM JAR 1 APPLIC TOPICAL (09:17)
[2023-06-06] MEDS: FUROSEMIDE 40 MG TABLET PO ×2 (09:17→15:54)
[2023-06-06] MEDS: calcitrioL 0.25 MCG CAPSULE PO (09:17)
--- NOTE | 2023-06-06 15:14 | PM.PNCARD ---
Progress Note: A&P Assessment and Plan (1) Aortic stenosis: Code(s): I35.0 - Nonrheumatic aortic (valve) stenosis Status: Acute Assessment and Plan: Patient presents with new onset acute diastolic heart failure and has been found to have severe aortic stenosis as well as diastolic dysfunction. She is improving, diuresing well but still on O2. Have counseled the patient and her POA/niece about progression, recurrence of CHF, and we hope that the patient will be a candidate for TAVR. -- follow-up in the office to pursue TAVR. Recommended the patient's POA/niece attend the visit as well. (2) Acute diastolic CHF (congestive heart failure): Code(s): I50.31 - Acute diastolic (congestive) heart failure Status: Acute Assessment and Plan: Diuresing, improving. Secondary to aortic stenosis with a component of diastolic heart failure. Her echo also suggested some segmental wall motion abnormalities which makes me wonder she has underlying CAD perhaps causing some ischemia after her four block walk uphill last week, and subsequent acute CHF. However her troponins were all basically normal and there were no acute changes on her EKG. BUN and creatinine have increased somewhat. --currently on furosemide 40 mg daily but will increase to b.i.d. because of her O2 needs and chest x-ray results --continue empagliflozin --BMP as outpatient in 1 week --discharge today or tomorrow ? If home O2 can be obtained for [place]. (3) Bacteremia: Code(s): R78.81 - Bacteremia Status: Acute Assessment and Plan: Found have Gram-positive cocci in clusters in 1 blood culture, Staph haemolyticus, which appears to be a contaminant. Repeat blood cultures were negative. (4) Lymphedema: Code(s): I89.0 - Lymphedema, not elsewhere classified Status: Acute Assessment and Plan: Treated by stenting a LE vein in the past by Dr. Field, and LE foot pumps. --since the patient has been diuresed is likely that she can tolerate the foot pumps as an outpatient (5) Chronic anemia: Code(s): D64.9 - Anemia, unspecified Status: Acute Assessment and Plan: No clinical bleeding. Subjective Date/time seen: 06/06/23 15:14 Interval history: Follow-up for new onset of diastolic heart failure secondary to severe aortic stenosis. Also history of COPD exacerbation and pneumonia. 06/02/2023: No shortness of breath at rest or with walking to the bathroom. Interested in pursuing TAVR. Continues to diurese well. Still on O2. One Blood culture was positive for Staph haemolyticus, thought to be a probable contaminant. I spoke to colby garza a chair and, on the phone. Telemetry: NSR 06/03/2023: Feeling a little better today. Slightly less short of breath although difficult to assess since she is not active, has not been out of bed today. 06/04/2023: Patient was sitting in bedside chair a sleep upon entering the room upon awakening she feels well and offers no complaints at this time 06/05/2023: Breathing is better, fatigued with physical activity. Still on 4 L O2 and has Delgado in. Diuresed another 2100 cc yesterday. Chest x-ray yesterday showed ?stable interstitial opacities and patchy airspace disease consistent with pulmonary edema versus pneumonia. ? unable to pull up to personally review. Date of service 06/06/2023: No complaints. Still on O2 at 3 L. Respiratory therapy evaluate the patient for home O2 yesterday, and O2 sat at rest on room air was 82%. Apparently walked 150 ft with a walker. Modest diuresis yesterday. BUN rising now up to 35, but creatinine stable. Chest x-ray yesterday personally reviewed, cardiomegaly, agree that there is still pulmonary edema. Review of Systems Review of Systems: Swelling improved though not gone. Breathing better. No chest pain or dizziness. No abdominal complaints. Exam Const: General: cooperative, comfo
== END 2023-06-06 17:10 | DRG 189 ==
LOC: ANHED 05-31 03:38 → ANHIMU 05-31 03:53 → ANH3MEDSUR 06-01 18:28 → ANHIMU 06-01 18:34 → ANH2MED 06-03 18:36
PROVIDERS: Internal Medicine; Admitting Provider Internal Medicine; Emergency Provider Emergency Medicine; PCP Family Medicine; Visit Provider Student in an Organized Health Care Education/Training Program
DX: J96.02 Acute respiratory failure with hypercapnia (principal); I50.31 Acute diastolic (congestive) heart failure; Z68.42 Body mass index [BMI] 45.0-49.9, adult; I35.0 Nonrheumatic aortic (valve) stenosis; I11.0 Hypertensive heart disease with heart failure; D64.9 Anemia, unspecified; E03.9 Hypothyroidism, unspecified; I48.0 Paroxysmal atrial fibrillation; G47.33 Obstructive sleep apnea (adult) (pediatric); E66.01 Morbid (severe) obesity due to excess calories; I89.0 Lymphedema, not elsewhere classified
CPT/HCPCS: 36415; 36600; 71045; 71046; 71275; 80053; 80069; 81001; 82607; 82728; 82746; 82805; 83540; 83550; 83605; 83735; 83880; 84100; 84145; 84439; 84443; 84480; 84484; 85025; 85055; 85610; 85730; 87040; 87077; 87086; 87635; 87636; 87641; 90471; 90694; 92610; 93005; 94002; 94003; 94618; 94640; 96365; 96366; 96367; 96375; 97110; 97116; 97161; 97165; 97530; 97535; 99285; A9270; C8929; G0008; G0378; J0456; J0696; J1940; J2930; J3370; Q9957; Q9967

== ENCOUNTER 2024-10-15 09:41 | Emergency (ER) | payer MEDICARE, SELFPAY ==
--- NOTE | ~2024-10-15 | XR_ITS ---
CHEST RADIOGRAPH CLINICAL HISTORY: CHF . COMPARISON: 06/04/2023 TECHNIQUE: Single portable view of the chest. FINDINGS Prosthetic valve is identified in the aortic position, an interval change from prior. The remainder of the cardiomediastinal silhouette is enlarged, unchanged, but otherwise unremarkable. Low lung volumes are detected bilaterally, possibly related to positioning. Increased interstitial markings are identified bilaterally, findings suggesting mild pulmonary vascul ar congestion. The lungs are otherwise clear. IMPRESSION: Low lung volumes with mild pulmonary vascular congestion. No focal infiltrate. Reviewed, dictated and finalized at location A.
--- NOTE | ~2024-10-15 | CT_ITS ---
History: Change in mentation PROCEDURE: CT head without contrast. COMPARISON: 05/20/2018 TECHNIQUE: Axial imaging of the head performed from the skull base to the vertex without IV contrast. Sagittal a nd coronal reformations obtained. DLP: 605 mGy-cm FINDINGS: The ventricles are enlarged. The dilatation of the ventricles is proportional to the degree of sulcal prominence, not uncommon in the senescent brain. Decreased attenuation is identified within the periventricular white matter, likely secondary to micr ovascular ischemic disease, in a patient of this age. There is no mass, mass effect or midline shift. There is no abnormal extra-axial fluid collection or intracranial hemorrhage. Visualized paranasal sinuses are clear. The mastoid air cells are well aerated. No acute displaced fractures within the overlying cranium. Impression: No acute intracranial hemorrhage or suspicious mass effect. Reviewed, dictated and finalized at location A. Impression: No acute intracranial hemorrhage or suspicious mass effect.
[2024-10-15 09:41] VITALS: BP 126/64; PULSE 91; RESP 19; O2SAT 96; O2SAT 98
--- NOTE | 2024-10-15 09:46 | ECG_ITS ---
Test Date: 2024-10-15 09:50:11 Measurements Intervals Wade Rate: 73 P: 54 SC: 152 QRS: -31 QRSD: 117 T: 35 QT: 384 QTc: 426 Interpretive Statements SINUS RHYTHM LEFT AXIS DEVIATION [QRS AXIS < -30] LOW QRS VOLTAGE IN PRECORDIAL LEADS [QRS DEFLECTION < 1.0 mV IN CHEST LEADS] PATTERN CONSISTENT WITH PULMONARY DISEASE MODERATE INTRAVENTRICULAR CONDUCTION DELAY [105+ ms QRS DURATION, 80+ ms Q/S IN V1/V2, NO Q AND 60+ ms R IN I/aVL/V5/V6] ABNORMAL ECG No previous ECG available for comparison Electronically Signed On 10-15-2024 14:19:45 CDT by Cecilio Mensah M.D.
[2024-10-15 10:00] LABS: Basophils Percent Auto 0.5 % (0.2-1.2); Eosinophils Absolute Auto 0.1 K/mm3 (0-0.3); Immature Granulocyte Absolute 0.02 K/mm3 (0.00-0.031); Immature Granulocyte Percent A 0.3 % (0-0.5); Lymphocytes Absolute Auto 1.27 K/mm3 (0.9-3.2); Lymphocytes Percent Auto 21.2 % (18.3-44.2); Mean Corpuscular HGB Conc 32.5 g/dl (32-36); Mean Corpuscular Volume 104.7 fl (80-100); Mean Platelet Volume 10.7 fl (7.4-10.4); Monocytes Absolute Auto 0.7 K/mm3 (0.1-0.6); Monocytes Percent Auto 11.8 % (2.6-8.5); Neutrophils Absolute Auto 3.9 K/mm3 (1.3-6.7); Neutrophils Percent Auto 65.2 % (45.5-73.1); Platelet Count Result 134 k/mm3 (150-375); Red Blood Count 3.82 M/mm3 (4.2-5.4); Red Cell Distribution Width 16.9 % (11.5-14.5)
[2024-10-15 10:13] LABS: INR 1.1; Prothrombin Time 14.2 Seconds (11.1-14.7)
[2024-10-15 10:15] LABS: Alanine Aminotransferase 28 U/L (6-35); Albumin Level 4.2 g/dL (3.5-5.1); Alkaline Phosphatase 73 U/L (38-126); Anion Gap 8 mmol/L (4-12); Aspartate Amino Transferase 32 U/L (14-36); Bilirubin,Total 2.1 mg/dL (0.2-1.3); Blood Urea Nitrogen 33 mg/dL (7-17); Calcium 12.7 mg/dL (8.4-10.2); Carbon Dioxide 36 mmol/L (22-30); Chloride 90 mmol/L (98-107); Estimated CRCL calculation 28 ml/min; Estimated Glomerular Filt Rate 24; Glucose 107 mg/dL (65-110); Partial Thromboplastin Time 24.1 Seconds (22.3-36.8); Potassium 3.9 mmol/L (3.4-5.0); Sodium 134 mmol/L (137-145)
--- OUTSIDE RECORDS SUMMARY | 2024-10-15 10:23 | XMS_ITS | Encounter Summary ---
Author Organization [employer] Address [address] [place] [address] Care Team Providers [employer] Salesperson Name Role Phone Brady Davis MD Primary Care Provider + [phone] Encounter Details Date Type Department Care Team (Late st Contact Info) Description 02/16/2018 Lab Requisition [facility] [place] [address] [place] [address] Brady Davis MD [address] [place] [address] Chronic kidney disease, stage III (moderate) (CMS/HCC) Social History Tobacco Use Types Packs/Day Years Used Date Smoking Tobacco: Never Assessed Comments Unknown Sex and Gender Information Value Date Recorded Sex Assigned at Not on file Legal Sex Female 10:25 AM CDT Gender Identity Not on file Sexual Orientation Not on file documented as of this encounter Plan of Treatment Not on file documented as of this encounter Procedures Procedure Name Priority Date/Time Associated Diagnosis Comments PTH INTACT Routine 02/16/2018 4:29 AM CDT Chronic kidney disease, stage III (moderate) documented in this encounter Results * (ABNORMAL) PTH INTACT (02/16/2018 4:29 AM CDT) PTH INTACT <6.0(L) 15.0 - 65.0 pg/mL 02/16/2018 9:58 AM CDT [facility] [employer] [facility] Blood Venipuncture / Unknown 02/16/2018 4:29 AM CDT 02/16/2018 8:25 AM CDT Brady Davis MD CHEMISTRY ORDERABLES Final R esult [facility]# [id number] [address] [place] [address] documented in this encounter Visit Diagnoses Diagnosis Chronic kidney disease, stage III (moderate) (CMS/HCC) Chronic kidney disease, Stage III (moderate) documented in this encounter Care [employer] Salesperson Relationship Specialty Start Date End Date Brady Davis MD [address] [place] [address] PCP - General Family Practice 11/04/17 documented as of this encounter
--- OUTSIDE RECORDS SUMMARY | 2024-10-15 10:23 | XMS_ITS | Encounter Summary ---
Author Organization [facility] Address [address] [place] [address] Care Team Providers Care Lapel Padder Name Role Phone Brady Davis MD Primary Care Provider + [phone] Encounter Details Date Type Department Care Team (Late st Contact Info) Description 12/17/2017 Lab Requisition [facility] Laboratory Services [facility] [address] [place] [address] Brady Davis MD [address] [place] [address] Vitamin D deficiency; Essential (primary) hypertension; Encounter for screening for diseases of the blood and blood-forming organs and certain disorders involving the immune mechanism Social History Tobacco Use Types Packs/Day Years [...] Procedure Name Priority Date/Time Associated Diagnosis Comments CBC WITH DIFFERENTIAL Routine 12/17/2017 6:12 AM CDT Vitamin D deficiency Essential (primary) hypertension Encounter for screening for diseases of the blood and blood-forming organs and certain disorders involving the immune mechanism VITAMIN D 25 HYDROXY Routine 12/17/2017 6:12 AM CDT Vitamin D deficiency Essential (primary) hypertension Encounter for screening for diseases of the blood and blood-forming organs and certain disorders involving the immune mechanism PHOSPHORUS Routine 12/17/2017 6:12 AM CDT Vitamin D deficiency Essential (primary) hypertension Encounter for screening for diseases of the blood and blood-forming organs and certain disorders involving the immune mechanism BASIC METABOLIC PANEL Routine 12/17/2017 6:12 AM CDT Vitamin D deficiency Essential (primary) hypertension Encounter for screening for diseases of the blood and blood-forming organs and certain disorders involving the immune mechanism documented in this encounter Results * (ABNORMAL) BASIC METABOLIC PANEL (12/17/2017 6:12 AM CDT) Pathologist [facility] SODIUM 141 136 - 145 mmol/L 12/17/2017 10:39 AM [facility] [employer] [facility] - . [facility] POTASSIUM 3.9 3.5 - 5.0 mmol/L 12/17/2017 10:39 AM [facility] [employer] [facility] - . [facility] CHLORIDE 100 98 - 107 mmol/L 12/17/2017 10:39 AM [facility] [employer] [facility] - . [facility] CO2 28 22 - 29 mmol/L 12/17/2017 10:39 AM [facility] [employer] [facility] - . [facility] CALCIUM 9.8 8.6 - 10.2 mg/dL 12/17/2017 10:39 AM [facility] [employer] [facility] - . [facility] BUN 37(H) 8 - 23 mg/dL 12/17/2017 10:39 AM [facility] [employer] [facility] - . [facility] CREATININE 1.25(H) 0.51 - 0.95 mg/dL 12/17/2017 10:39 AM [facility] [employer] [facility] Comment: The GFR result is not clinically significant on patients <18 or >70 years of age. GLUCOSE 69(L) 74 - 99 mg/dL 12/17/2017 10:39 AM [facility] [employer] [facility] GFR 42 mL/min/1.7 3 sq meter 12/17/2017 10:39 AM [facility] [employer] [facility] Comment: eGFR has not been validated for use in the elderly (> 70 years of age), women, patients with serious co-morbid conditions, or persons with extremes of body size or muscle mass and should also be interpreted with caution in patients with acute kidney failure, dialysis dependent patients, patients reporting exceptional dietary intake (e.g. vegetarian diet, high protein diets, creatine supplementation), and patients with severe liver disease. Based on National Kidney Disease Education Program If patient is , please refer to the GFR result. GFR, 51 mL/min/1.7 3 sq meter 12/17/2017 10:39 AM CDT [facility] - [facility] ANION GAP 13 8 - 16 mmol/L 12/17/2017 10:39 AM CDT [facility] - [facility] Blood Venipuncture / Unknown 12/17/2017 6:12 AM CDT 12/17/2017 8:59 AM CDT us Brady Davis MD CHEMISTRY ORDERABLES Final R esult [facility] [id number] [address] [facility] [place] [address] * (ABNORMAL) CBC WITH DIFFERENTIAL (12/17/2017 6:12 AM CDT) Pathologist [facility] WBC 4.0 4.0 - 9.8 K/uL 12/17/2017 10:45 AM CDT [facility] - [facility] RBC 3.39(L) 3.90 - 4.90 M/uL 12/17/2017 10:45 AM T [facility] HEMOGLOBIN 10.0(L) 11.8 - 14.8 g/dL 12/17/2017 10:45 AM [facility] HEMATOCRIT 31.8(L) 35.5 - 44.0 % 12/17/2017 10:45 AM CDT [facility] - [facility] MCV 93.8 82.0 - 99.0 fL 12/17/2017 10:45 AM CDT [facility] - [facility] MCH 29.5 27.2 - 32.6 pg 12/17/2017 10:45 AM CDT [facility] - [facility] MCHC 31.4(L) 31.5 - 35.5 g/dL 12/17/2017 10:45 AM CDT [facility] - [facility] RDW 13.9 11.5 - 14.5 % 12/17/2017 10:45 AM CDT [facility] - [facility] RDW-STDEV 47.6 37.1 - 48.7 fL 12/17/2017 10:45 AM CDT [facility] - . [facility] PLATELETS 168 140 - 350 K/uL 12/17/2017 10:45 AM CDT [facility] - . [facility] MPV 10.5 9.3 - 12.4 fL 12/17/2017 10:45 AM CDT [facility] NEUTROPHILS 52 % 12/17/2017 10:45 AM CDT [facility] - [facility] LYMPHOCYTES 36 % 12/17/2017 10:45 AM CDT [facility] - [facility] MONOCYTES 8 % 12/17/2017 10:45 AM CDT [facility] - [facility] EOSINOPHILS 3 % 12/17/2017 10:45 AM CDT [facility] - [facility] BASOPHILS 1 % 12/17/2017 10:45 AM CDT [facility] - . [facility] IMMATURE GRANULOCYTES 0 % 12/17/2017 10:45 AM [facility] - . [facility] NEUTROPHIL ABSOLUTE 2.09 1.90 - 7.00 K/uL 12/17/2017 10:45 AM CDT [facility] - . [facility] LYMPHOCYTE ABSOLUTE 1.43 0.70 - 4.50 K/uL 12/17/2017 10:45 AM [facility] - . [facility] MONOCYTE ABSOLUTE 0.33 0.10 - 1.30 K/uL 12/17/2017 10:45 AM [facility] - . [facility] EOSINOPHIL ABSOLUTE 0.13 0.00 - 0.70 K/uL 12/17/2017 10:45 AM [facility] - . [facility] BASOPHILS ABSOLUTE 0.02 0.00 - 0.20 K/uL 12/17/2017 10:45 AM CDT [facility] - . [facility] IMMATURE GRANULOCYTES ABSOLUTE 0.01 0.00 - 0.03 K/uL 12/17/2017 10:45 AM [facility] - . [facility] Blood Venipuncture / Unknown 12/17/2017 6:12 AM CDT 12/17/2017 8:59 AM CDT Brady Davis MD HEMATOLOGY ORDERABLES Final Result [facility]# [id number] [address] [place] [address] * PHOSPHORUS (12/17/2017 6:12 AM CDT) Pathologist [facility] PHOSPHORUS 3.9 2.5 - 4.5 mg/dL 12/17/2017 10:39 AM CDT [facility] Blood Venipuncture / Unknown 12/17/2017 6:12 AM CDT 12/17/2017 8:59 AM CDT Result [facility] Brady Davis MD CHEMISTRY ORDERABLES Final R esult Performing Organization Address [facility] Co de Phone Number [facility]# [id number] [address] [place] [address] * (ABNORMAL) VITAMIN D 25 HYDROXY (12/17/2017 6:12 AM CDT) Pathologist [facility] VITAMIN D TOTAL (25OH) 23(L) 30 - 100 ng/mL 12/17/2017 10:49 AM CDT [facility] Blood Venipuncture / Unknown 12/17/2017 6:12 AM CDT 12/17/2017 8:59 AM CDT Narrative [facility] - 12/17/2017 10:49 AM CDT Interpretive Data Chart: Deficient: 0 - 20 ng/mL Insufficient: 21 - 29 ng/mL Sufficient: 30 - 100 ng/mL Increased Risk of Hypercalciuria: >100 ng/mL Toxic: >150 ng/mL Result [facility] Brady Davis MD CHEMISTRY ORDERABLES Final R esult Performing Organization Address City/[facility]/ZIP Co de Phone Number [facility] [place]# [id number] [address] [place] [address] documented in this encounter Visit Diagnoses Diagnosis Vitamin D deficiency Unspecified vitamin D deficiency Essential (primary) hypertension Unspecified essential hypertension Encounter for screening for diseases of the blood and blood-forming organs and certain disorders involving the immune mechanism documented in this encounter Care Teams Lapel Padder Relationship Specialty Start Date End Date Brady Davis MD [address] [place] [address] PCP - General Family Practice 11/04/17 documented as of this encounter
--- OUTSIDE RECORDS SUMMARY | 2024-10-15 10:23 | XMS_ITS | Clinical Summary ---
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 Name Role Phone Brady Davis MD Primary Care Provider Social History Tobacco Use Types Packs/Day Years Used Date Smoking Tobacco: Never Assessed Comments Unknown Sex and Gender Information Value Date Recorded Sex Assigned at Not on file Legal Sex Female 10:25 AM CDT Gender Identity Not on file Sexual Orientation Not on file Plan of Treatment Health Maintenance Due Date Last Done Comments DTAP/TDAP/TD VACCINES (1 - Tdap) 1965 PNEUMOCOCCAL VACCINE 50+ YEARS (1 of 1 - PCV) 04/27/19 96 ZOSTER VACCINE (1 of 2) 1996 OSTEOPOROSIS SCREENING 2011 RSV VACCINE (60+ or ) (1 - 1-dose 75+ series) 2021 INFLUENZA VACCINE (#1) [address] [place] [address] [facility] [id number] Care Teams 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
--- OUTSIDE RECORDS SUMMARY | 2024-10-15 10:23 | XMS_ITS ---
Author Name Brady Davis Robel Address [address] [place] [address] Phone [phone] Organization [facility] [employer] [facility] ices Address [address] [place] [address] Phone [phone] Care Team Providers Care Barber Name Role Phone Brady Davis Unavailable [phone] Trever Wood Unavailable Functional Status No Results Mental Status No Results Allergies and Intolerances Name Onset Date Reaction Severity penicillin (Allergy) Sat Oct 30 11:51:00 EDT 201 8 Encounters Program Name Primary Diagnosis Admission Date/Time Dis charge Date/Time Assisted Living Area Other pancytopenia Sat Oct 30 11:00:00 EDT 2018 Immunizations Name Dates Status influenza, trivalent, adjuvanted Keshia Apr 27 01:0 0:00 EDT 2023 Completed COVID-19, mRNA, LNP-S, PF, t ris-sucrose, 30 mcg/0.3 mL Sat May 13 01:00:00 EDT 2023 Completed RSV, mRNA, injectable, PF WedJul 27 01:00:00 ES T 2024 Completed RSV, mRNA, injectable, PF Fri Jul 28 01:00:00 ES T 2024 Completed Medications Medication Directions Start Date End Date potassium chloride ER 10 mEq tablet,extended release 1 tablet TABLET, EXTENDED RELEASE Oral 1 Time Daily for 7 Days Indication: hypokalemia Nurse admin x1 Sat Oct 07 01:00:00 ED2024Oct 14 00:59:00 EDT 2024 Klor-Con M10 mEq tablet,extended release 1 TABLET, EXT RELEASE, PARTICLES/CRYSTALS Oral 2 Times Daily Indication: hypokalemia Nurse administration x1, x4 WedSep 29 01:00:00 EDT 2024 levoFLOXacin 500 mg tablet 1 tablet TABL ET Oral 1 Time Daily for 7 Days Indication: Pneumonia Nurse admin x1 WedSep 29 01:00:00 EDT 2024Oct 06 00:59:00 EDT 2024 Acidophilus capsule 1 capsule CAPSULE Or al 2 Times Daily for 10 Days Indication: probiotic Nurse admin x1, x4 WedSep 29 01:00:00 EDT 2024Oct 09 00:59:00 EDT 2024 metOLazone 5 mg tablet 1 TABLET Oral 1 T corinna Daily for 10 Days Indication: CHF INSTRUMENT MAN supervision 07:00Give 30 minutes BEFORE Bumex dose WedSep 24 01:00:00 EST 2024Oct 04 00:59:00 EDT 2024 Blood Pressure Kit 1 KIT Other 1 Time W eekly Indication: weight INSTRUMENT MAN to obtain WedSep 23 15:56:00 EST 2024 Blood Pressure Kit 1 KIT Other 1 Time W eekly Indication: weight INSTRUMENT MAN to obtain Keshia Sep 21 01:00:00 EST 2024Sep 23 16:12:00 EST 2024 bumetanide 1 mg tablet 1 mg TABLET Oral 2 Times Daily Indication: edema Nurse to give x1 and x4 WedSep 06 14:00:00 EST 2024 potassium chloride ER 20 mEq tablet,extended release(part/cryst) 20 mEq TABLET, EXT RELEASE, PARTICLES/CRYSTALS Oral 2 Times Daily Indication: Hypokalemia Nurse Admin x1 x420 mEq +10 mEq = 30mEq WedSep 06 01:00:00 EST 2024 Klor-Con M10 mEq tablet,extended release 1 TABLET, EXT RELEASE, PARTICLES/CRYSTALS Oral 2 Times Daily Indication: hypokalemia Nurse administration x1, x4 WedSep 01 01:00:00 EST 2024Sep 15 00:25:00 EST 2024 metOLazone 5 mg tablet 1 tab TABLET Oral 1 Time Daily for 7 Days Indication: CHF WedAug 21 01:00:00 EST 2024Aug 28 00:59:00 EST 2024 potassium chloride ER 20 mEq tablet,extended release(part/cryst) 20 mEq TABLET, EXT RELEASE, PARTICLES/CRYSTALS Oral 2 Times Daily Indication: Hypokalemia Nurse Admin x4 WedAug 19 12:20:00 EST 2024Sep 05 13:33:00 EST 2024 calcitrioL 0.25 mcg capsule 1 capsule CAPSULE Oral 1 Time Daily Indication: Vitamin D deficiency nurse admin x4 [facility] Aug 19 12:25:00 EST 2024 metOLazone 5 mg tablet 1 tab TABLET Oral 1 Time Daily for 7 Days Indication: CHF WedAug 20 01:00:00 EST 2024Aug 20 10:10:00 EST 2024 mRESVIA (PF) 50 mcg/0.5 mL intramuscular syringe 1 inj SYRINGE (ML) Intramuscular 1 Time Daily Indication: RSV Vaccine WedJul 27 01:00:00 EST 2024Jul 28 11:13:00 EST 2024 nystatin 100,000 unit/gram topical powder N/A POWDER (GRAM) Topical 2 Times Daily for 14 Days Indication: MASD Apply powder to red area's under breast and abd folds. WedJul 09 01:00:00 EST 2023Jul 23 00:59:00 EST 2024 Comirnaty (12y up)(PF) 30 mcg/0.3 mL intramuscular syringe 0.3 ml SYRINGE (ML) Intramuscular 1 Time Daily for 1 Day Indication: covid vaccine WedMay 13 01:00:00 EDT 2023May 14 00:59:00 EDT 2023 Blood Pressure Kit na KIT Other 2 Times Daily for 3 Days Indication: covid vaccine COVID vaccine WedMay 13 01:00:00 EDT 2023May 16 00:59:00 EDT 2023 Fluad Triv (65y up)(PF) 45 mcg (15 mcg x 3)/0.5 mL IM syringe 1 SYRINGE (ML) Intramuscular 1 Time Daily for 1 Day Indication: Vaccine WedApr 27 01:00:00 EDT 2023Apr 28 00:59:00 EDT 2023 potassium chloride ER 20 mEq tablet,extended release(part/cryst) 20 mEq TABLET, EXT RELEASE, PARTICLES/CRYSTALS Oral 2 Times Daily Indication: hypokalemia Nurse Admin 1 [id number] + 20 mEq = 40 mEq total WedMar 31 01:00:00 EDT 2023Mar 30 20:29:00 EDT 2023 potassium chloride ER 20 mEq tablet,extended release(part/cryst) 20 mEq TABLET, EXT RELEASE, PARTICLES/CRYSTALS Oral 2 Times Daily for 7 Days Indication: hypokalemia Nurse Admin 1 [id number] + 20 mEq = 40 mEq total Wed 13 01:00:00 EDT 2023Apr 07 00:59:00 ED2023 Acidophilus capsule 1 capsule CAPSULE Or al 2 Times Daily for 10 Days Indication: probiotic Nurse x1, x4 WedMar 16 01:00:00 EDT 2023Mar 16 19:14:00 EDT 2023 Acidophilus capsule 1 capsule CAPSULE Or al 2 Times Daily for 10 Days Indication: probiotic Nurse x1, x4 WedMar 17 01:00:00 EDT 2023Mar 27 00:59:00 ED2023 metOLazone 5 mg tablet 1 tablet TABLET O ral 1 Time Daily for 10 Days Indication: edema Nurse administration give 30 minutes before morning lasix dose WedMar 17 01:00:00 EDT 2023Mar 27 00:59:00 EDT 2023 Blood Pressure Kit 1 KIT Other 1 Time D aily for 1 Day Indication: weight INSTRUMENT MAN to obtain WedMar 17 01:00:00 EDT 2023Mar 18 00:59:00 EDT 2023 Blood Pressure Kit 1 KIT Other 1 Time D aily for 1 Day Indication: weight INSTRUMENT MAN to obtain WedMar 26 01:00:00 EDT 2023 [facility] Mar 27 00:59:00 EDT 2023 cephALEXin 500 mg capsule 1 capsule CAPS ULE Oral 3 Times Daily for 10 Days Indication: blisters to BLE Nurse administration WedMar 16 01:00:00 ED2023 [facility] 00:59:00 EDT 2023 levothyroxine 200 mcg tablet 1 tab TABLET Oral 1 Time Daily Indication: hypothyroidism WedJan 03 01:00:00 EDT 2023 Multi-Vitamin HP/Minerals capsule 1 cap CAPSULE Oral 1 Time Daily for 5 Days nurse admin [id number]: vitamin Multivitamin without Folic Acid WedNovember 17 01:00:00 EDT 2023November 22 00:59:00 EDT 2023 Centrum Silver Women 8 mg iron-400 mcg-50 mcg tablet 1 tab Oral 1 Time Daily Indication: vitamin WedNovember 22 01:00:00 EDT 2023 ciprofloxacin 0.3 %-dexamethasone 0.1 % ear drops,suspension 4 SUSPENSION, DROPS(FINAL DOSAGE FORM)(ML) Left Ear 2 Times Daily for 7 Days Indication: Left ear drainageNurse to administer 4 drops to left ear. WedOct 06 01:00:00 EDT 2023Oct 13 00:59:00 EDT 2023 ciprofloxacin 0.3 %-dexamethasone 0.1 % ear drops,suspension 4 SUSPENSION, DROPS(FINAL DOSAGE FORM)(ML) Left Ear 2 Times Daily for 7 Days Indication: Left ear drainage WedOct 04 01:00:00 EDT 2023Oct 04 15:49:00 EDT 2023 Blood Pressure Cuff 1 EACH Other 3 Times Daily Indication: hypoxia TAKE O2 READING WITHOUT OXYGEN ON RESIDENT WedSep 22 10:00:00 EST 2023Sep 22 11:06:00 EST 2023 Blood Pressure Cuff 1 EACH Other 3 Times Daily Indication: hypoxia TAKE O2 READING WITHOUT OXYGEN ON RESIDENT WedSep 22 11:04:00 EST 2023Sep 28 11:36:00 EDT 2023 clopidogreL 75 mg tablet 1 tablet TABLET Oral 1 Time Daily for 148 Days Indication: anticoagulant Nurse administration x1 WedSep 13 18:15:00 EST 2023Feb 07 18:14:00 EDT 2023 clopidogreL 75 mg tablet 1 tablet TABLET Oral 1 Time Daily Indication: anticoagulant Nurse administration x1 WedAug 12 01:00:00 EST 2023Sep 13 18:17:00 EST 2023 levothyroxine 150 mcg tablet 1 tab TABLET Oral 1 Time Daily Indication: HYPOPARATHYROIDISM WedAug 03 15:35:00 EST 2023Jan 02 13:11:00 EDT 2023 cefdinir 300 mg capsule 1 cap CAPSULE Or al 2 Times Daily for 5 Days Indication: pneumonianurse admin x1 x4 WedJun 07 13:00:00 EST 2022Jun 12 12:59:00 EST 2022 furosemide 40 mg tablet 1 tab TABLET Ora l 2 Times Daily Indication: edemanurse admin x1 x4 WedJun 07 13:00:00 EST 2022Sep 06 13:56:00 EST 2024 Jardiance 10 mg tablet 1 tab TABLET Oral 1 Time Daily Indication: heart failurenurse admin x1 WedJun 07 13:00:00 EST 2022 cefdinir 300 mg capsule 1 cap CAPSULE Or al 2 Times Daily for 5 Days Indication: pneumonia WedJun 07 01:00:00 EST 2022Jun 07 09:33:00 EST 2022 Jardiance 10 mg tablet 1 tab TABLET Oral 1 Time Daily Indication: heart failure WedJun 07 01:00:00 EST 2022Jun 07 09:35:00 EST 2022 furosemide 40 mg tablet 1 tab TABLET Ora l 2 Times Daily Indication: edema WedJun 07 01:00:00 EST 2022Jun 07 09:35:00 EST 2022 aspirin 81 mg tablet,delayed release 1 tablet TABLET, DELAYED RELEASE (ENTERIC COATED) Oral 1 Time Daily nurse admin [id number]: prophylaxis WedMay 25 07:00:00 EST 2022May 25 10:25:00 EST 2022 aspirin 81 mg tablet,delayed release 1 tablet TABLET, DELAYED RELEASE (ENTERIC COATED) Oral 1 Time Daily nurse admin [id number]: prophylaxis WedMay 25 11:00:00 EST 2022 amLODIPine 10 mg tablet 1 tablet TABLET Oral 1 Time Daily nurse admin [id number]: HTN WedMay 20 16:45:00 EDT 2022Jun 06 19:31:00 EST 2022 famotidine 20 mg tablet 1 tablet TABLET Oral 1 Time Daily nurse admin [id number]: GERD WedMay 20 16:46:00 EDT 2022 magnesium oxide 400 mg (241.3 mg magnesium) tablet 1 tablet TABLET Oral 2 Times Daily nurse admin x1 [id number]: supplement WedMay 20 16:47:00 EDT 2022 TylenoL 325 mg tablet 2 TABLET Oral PRN Every 4 Hours nurse adminIndication: pain WedMay 20 16:48:00 EDT 2022Mar 06 13:18:00 EDT 2023 melatonin 10 mg tablet 1 TABLET Oral 1 T corinna Daily nurse admin [id number]: insomnia WedMay 20 16:49:00 EDT 2022 BenadryL 25 mg capsule 1 CAPSULE Oral MT N (Max 1 Doses) nurse adminIndication: antihistamine May use as sleep aid one time QHS WedMay 20 16:50:00 EDT 2022Mar 06 13:18:00 EDT 2023 Robafen 100 mg/5 mL oral liquid 10 ml LIQUID (ML) Oral PRN Every 4 Hours nurse adminIndication: cough WedMay 20 16:51:00 EDT 2022Mar 06 13:18:00 EDT 2023 aspirin 81 mg tablet,delayed release 1 tablet TABLET, DELAYED RELEASE (ENTERIC COATED) Oral 1 Time Daily nurse admin [id number]: prophylaxis WedMay 20 16:52:00 EDT 2022May 25 10:24:00 EST 2022 calcium carbonate 500 mg calcium (1,250 mg) tablet 1 tablet TABLET Oral 3 Times Daily nurse admin x2 x3 [id number]: supplement WedMay 20 16:53:00 EDT 2022 nystatin 100,000 unit/gram topical powder - POWDER (GRAM) Topical PRN nurse adminIndication: redness/rash Apply powder to red area's under breast and abd folds as needed. WedMay 20 16:54:00 EDT 2022Mar 06 13:18:00 EDT 2023 PreserVision AREDS 2,148 mcg-113 mg-45 mg-17.4 mg tablet 1 tab TABLET Oral 2 Times Daily nurse admin x1 [id number]: preventative WedMay 20 16:55:00 EDT 2022 Blood Pressure Kit B/P KIT Other 2 Time s Monthly INSTRUMENT MAN supervision, INSTRUMENT MAN obtain VSIndication: Vital signs WedMay 20 16:56:00 EDT 2022 albuterol sulfate 2.5 mg/3 mL (0.083 %) solution for nebulization 1 vial VIAL, NEBULIZER (ML) Inhalation PRN 3 Times Daily nurse adminIndication: SOB, Cough PRN WedMay 20 16:57:00 EDT 2022Mar 06 13:18:00 EDT 2023 Multi-Vitamin HP/Minerals capsule 1 cap CAPSULE Oral 1 Time Daily nurse admin [id number]: vitamin Multivitamin without Folic Acid WedMay 20 16:58:00 EDT 2022November 16 06:10:00 EDT 2023 Abrysvo 120 mcg/0.5 mL intramuscular solution 1 VIAL (EA) Intramuscular 1 Time Daily for 1 Day Indication: RSV vaccine WedMay 01 01:00:00 EDT 2022 Sun May 02 00:59:00 EDT 2022 cephALEXin 500 mg capsule 1 capsule CAPS ULE Oral 3 Times Daily for 10 Days Indication: skin infection WedApr 07 01:00:00 EDT 2022 Sat Apr 17 00:59:00 EDT 2022 Multi-Vitamin HP/Minerals capsule 1 cap CAPSULE Oral 1 Time Daily Indication: vitamin Multivitamin without Folic Acid WedMar 21 01:00:00 EDT 2022May 20 16:59:00 EDT 2022 Multi-Vitamin HP/Minerals capsule 1 cap CAPSULE Oral 1 Time Daily Indication: vitamin Multivitamin without Folic Acid WedMar 14 01:00:00 EDT 2022Mar 13 16:16:00 EDT 2022 levothyroxine 50 mcg tablet 1 tablet TABLET Oral 1 Time Daily Indication: hyperthyroidism 200mcg + 50mcg =250mcgNurse administer x1 WedMar 12 01:00:00 EDT 2022Apr 09 15:48:00 EDT 2022 metOLazone 5 mg tablet 1 TABLET Oral 1 T corinna Daily for 10 Days Indication: CHF Nurse Admin ends 02/08Jan 30 01:00:00 EDT 2022Feb 09 00:59:00 EDT 2022 albuterol sulfate 2.5 mg/3 mL (0.083 %) solution for nebulization 1 vial VIAL, NEBULIZER (ML) Inhalation 4 Times Daily for 14 Days Indication: SOB, Cough WedJan 29 01:00:00 EDT 2022Feb 12 00:59:00 EDT 2022 levothyroxine 100 mcg tablet 1 tab TABLET Oral 1 Time Daily Indication: hyperthyroidism 200mcg+100mcg= 300mcg WedDec 27 01:00:00 EDT 2022Mar 11 02:44:00 EDT 2022 levothyroxine 100 mcg tablet 1 tab TABLET Oral 1 Time Daily Indication: hyperthyroidism 200mcg+100mcg+50mcg= 350mcg WedDec 26 01:00:00 ED2022Dec 26 15:34:00 EDT 2022 cephALEXin 500 mg tablet 1 tab TABLET Or al 3 Times Daily for 10 Days Indication: ABT/cellulitis Nurse WedNovember 27 01:00:00 EDT 2022December 07 00:59:00 EDT 2022 levothyroxine 50 mcg tablet 1 tab TABLET Oral 1 Time Daily Indication: hyperthyroidism 200mcg +50mcg= 250mcg WedOct 02 01:00:00 EDT 2022Dec 26 16:16:00 EDT 2022 albuterol sulfate 2.5 mg/3 mL (0.083 %) solution for nebulization 1 vial VIAL, NEBULIZER (ML) Inhalation PRN 3 Times Daily Indication: SOB, Cough PRN WedSep 20 09:34:00 EST 2022May 20 16:59:00 EDT 2022 albuterol sulfate 2.5 mg/3 mL (0.083 %) solution for nebulization 1 vial VIAL, NEBULIZER (ML) Inhalation 3 Times Daily Indication: SOB, Cough WedSep 13 01:00:00 EST 2022Sep 20 09:35:00 2022 guaiFENesin 100 mg/5 mL oral liquid 10ML LIQUID (ML) Oral 2 Times Daily for 7 Days Indication: for cough Nurse WedSep 11 13:00:00 2022Sep 18 12:59:00 EST 2022 levoFLOXacin 500 mg tablet 1 Tab TABLET Oral 1 Time Daily for 7 Days Indication: pneumonia INSTRUMENT MAN Supervision x1 WedSep 09 01:00:00 2022Sep 16 00:59:00 EST 2022 Blood Pressure Kit B/P KIT Other 2 Time s Monthly Indication: Vital signs WedSep 05 16:25:00 2022May 20 16:58:00 EDT 2022 levothyroxine 25 mcg tablet 1 tab TABLET Oral 1 Time Daily Indication: hyperthyroidism give with 200mcg +25mcg = 225mcg WedSep 02 01:00:00 2022Oct 01 16:55:00 EDT 2022 PreserVision AREDS 2,148 mcg-113 mg-45 mg-17.4 mg tablet 1 tab TABLET Oral 2 Times Daily Indication: Tx Dry AMD, macular degeneration both eyes, degenerative myopia both eyes, and epi retinal membrane right eye. Take 1 tab PO BID with food.INSTRUMENT MAN Supervision x1 x4. WedJun 04 07:00:00 EST 2021May 20 16:57:00 EDT 2022 SantyL 250 unit/gram topical ointment as directed OINTMENT (GRAM) Topical 1 Time Daily Indication: wound see tx orders for LLEapply 40.8G daily WedMay 12 12:06:00 EDT 2021May 26 11:44:00 EST 2021 SantyL 250 unit/gram topical ointment as directed OINTMENT (GRAM) Topical 1 Time Daily Indication: wound see tx orders for LLE WedMay 12 07:00:00 EDT 2021May 12 12:07:00 EDT 2021 cefUROXime axetiL 500 mg tablet 1 tablet TABLET Oral 2 Times Daily for 10 Days Indication: leg infection WedMay 12 07:00:00 EDT 2021May 22 06:59:00 EDT 2021 cephALEXin 500 mg capsule 1 cap CAPSULE Oral 4 Times Daily for 10 Days Indication: ABT for cellulitis ends 04/23 Sep 01:00:00 EDT 2021Apr 24 00:59:00 EDT 2021 cephALEXin 500 mg capsule 1 cap CAPSULE Oral 1 Time Daily for 10 Days Indication: ABT for cellulitis ends 04/20Apr 11 01:00:00 EDT 2021Apr 14 08:34:00 EDT 2021 zinc gluconate 100 mg tablet 1 tab TABLET Oral 2 Times Daily for 14 Days Indication: COVID19 INSTRUMENT MAN x1 x4 WedMar 26 09:00:00 EDT 2021 14 11:13:00 EDT 2021 Vitamin C 1,000 mg tablet 1 tab TABLET O ral 1 Time Daily for 14 Days Indication: COVID19 Wed 08 09:00:00 EDT 2021 Sep 22 08:59:00 EDT 2021 cholecalciferol (vitamin D3) 25 mcg (1,000 unit) tablet 1 tab TABLET Oral 1 Time Daily for 21 Days Indication: COVID19 Wed Sep 08 09:00:00 EDT 2021 Sep 29 08:59:00 EDT 2021 Paxlovid 300 mg (150 mg x 2)-100 mg tablets in a dose pack (EUA) dose pack TABLET, DOSE PACK Oral 2 Times Daily for 5 Days Indication: [facility] to check for interactions before dispensing. Wed 08 01:00:00 EDT 2021Mar 31 00:59:00 EDT 2021 zinc gluconate 50 mg tablet 2 tab Oral 2 Times Daily for 14 Days Indication: COVID 19 WedMar 25 01:00:00 EDT 2021Apr 08 00:59:00 EDT 2021 cyanocobalamin (vit B-12) 1,000 mcg tablet 1 tab TABLET Oral 1 Time Daily Vitamin Deficiency Nurse administer x1 WedMar 02 14:06:00 EDT 2021 Prevnar 20 (PF) 0.5 mL intramuscular syringe 0.5 mL SYRINGE (ML) Intramuscular 1 Time Daily Give IM Nurse to administer Dx Pneumonia vax WedFeb 26 07:30:00 EDT 2021Feb 28 08:22:00 EDT 2021 CertaVite Senior 0.4 mg-300 mcg-250 mcg tablet 1 tab TABLET Oral 1 Time Daily Nurse Supervision x1 Sat Aug 30 01:00:00 EST 2021Mar 11 02:44:00 EDT 2022 Pfizer-BioNTech COVID-19 Vaccine (PF) 30 mcg/0.3 mL IM suspension(EUA) 0.3 ml VIAL (ML) Intramuscular 1 Time Daily for 1 Day WedApr 30 07:00:00 EDT 2020May 01 06:59:00 EDT 2020 Fluad Quad [id number](65yr up)(PF) 60 mcg (15 mcg x 4)/0.5mL IM syringe 1 SYRINGE (ML) Intramuscular 1 Time Daily for 1 Day WedApr 23 01:00:00 EDT 2020Apr 24 00:59:00 EDT 2020 levothyroxine 25 mcg tablet 1 tab TABLET Oral 1 Time Daily WedFeb 06 10:20:00 EDT 2020Mar 20 19:35:00 EDT 2020 Adults 50 Plus 0.4 mg-300 mcg-250 mcg tablet 1 Oral 1 Time Daily WedNovember 29 17:00:00 EDT 2020 Sat Aug 30 08:18:00 EST 2021 Pfizer-BioNTech COVID-19 Vaccine (PF) 30 mcg/0.3 mL IM suspension(EUA) 0.3ml VIAL (ML) Intramuscular 1 Time Daily for 1 Day WedJul 25 22:00:00 EST 2020Jul 26 20:39:00 EST 2020 Blood Pressure Kit B/P KIT Other 1 Time Monthly Monthly Vitals WedJun 18 01:00:00 EST 2019Sep 03 16:27:00 EST 2022 levothyroxine 50 mcg tablet 1 TABLET Oral Every 1 Day WedFeb 28 07:00:00 EDT 2019Feb 06 10:20:00 EDT 2020 nystatin 100,000 unit/gram topical powder - POWDER (GRAM) Topical PRN Apply powder to red area's under breast and abd folds as needed. Sun Nov 11 07:00:00 EDT 2019May 20 16:56:00 EDT 2022 calcium carbonate 500 mg calcium (1,250 mg) tablet 1 tablet TABLET Oral 3 Times Daily contract coordinator supervision x2 x3x4 WedOct 25 17:00:00 EDT 2019May 20 16:55:00 EDT 2022 levothyroxine 75 mcg tablet 1 tablet TABLET Oral 1 Time Daily Nurse admin x 1 WedOct 23 17:00:00 EDT 2019Feb 27 15:19:00 ED2019 levothyroxine 200 mcg tablet 1 tablet TABLET Oral 1 Time Daily Nurse admin x 1 WedOct 23 17:00:00 EDT 2019Aug 03 15:37:00 EST 2023 ear thermometer 1 EACH Other 1 Time Daily INSTRUMENT MAN to obtain x 4 WedSep 30 14:30:00 EDT 2019Oct 12 07:21:00 ED2019 ear thermometer 1 EACH Other 1 Time Daily contract coordinator to get temp daily WedSep 27 17:00:00 ED2019Oct 12 07:21:00 ED2019 levothyroxine 300 mcg tablet 1 tablet TABLET Oral 1 Time Daily Nurse admin x 1 WedSep 25 11:00:00 ED2019Oct 23 18:55:00 ED2019 levothyroxine 300 mcg tablet 1 tablet TABLET Oral 1 Time Daily Nurse admin x 1 WedSep 21 17:00:00 2019Sep 25 11:03:00 ED2019 aspirin 81 mg tablet,delayed release 1 tablet TABLET, DELAYED RELEASE (ENTERIC COATED) Oral 1 Time Daily INSTRUMENT MAN supervision x 1 WedAug 01 17:00:00 2019May 20 16:54:00 EDT 2022 levothyroxine 50 mcg tablet 50 mcg TABLET Oral 1 Time Daily nurse to adm x 1 to be given with 200 mcg WedMay 31 21:30:00 EST 2018Sep 21 16:18:00 2019 thermometer, congregational electronic 1 EACH Other 1 Time Daily for 3 Days Take Temp 1 time daily for 3 days after flu shot. WedMay 03 17:00:00 EDT 2018May 06 16:59:00 EDT 2018 Fluad 2019- 65yr up(PF)45 mcg(15 mcgx3)/0.5 mL intramuscular syringe 0.5 ml SYRINGE (ML) Intramuscular 1 Time Daily for 1 Day WedMay 03 01:00:00 EDT 2018May 04 00:59:00 EDT 2018 hydrALAZINE 25 mg tablet 1 tablet TABLET Oral 3 Times Daily nurse administration x1 x2 x4 WedMay 01 17:00:00 EDT 2018Jun 06 19:31:00 EST 2022 Blood Pressure Kit 1 KIT Other 1 Time D aily for 5 Days obtain bp and pulse x 5 days WedMay 01 19:00:00 EDT 2018May 06 18:59:00 EDT 2018 levothyroxine 25 mcg tablet 25 TABLET Oral 1 Time Daily Nurse to adm give with 200 mcg to equal 225 mcg daily WedJan 19 01:00:00 EDT 2018May 31 23:17:00 EST 2018 Robafen 100 mg/5 mL oral liquid 10 ml LIQUID (ML) Oral PRN Every 4 Hours cough WedDec 27 12:00:00 EDT 2018May 20 16:53:00 EDT 2022 levothyroxine 200 mcg tablet 1 tablet TABLET Oral 1 Time Daily nurse to admin x1 WedDec 22 17:00:00 EDT 2018Sep 21 16:18:00 EST 2019 levothyroxine 175 mcg tablet 175mcg TABLET Oral 1 Time Daily Nurse administer x1 WedNovember 22 08:00:00 EDT 2018Dec 22 18:04:00 EDT 2018 nystatin 100,000 unit/gram topical powder 1 POWDER (GRAM) Topical 2 Times Daily for 14 Days apply nystatin powder under breasts BID x 14 days WedSep 21 01:00:00 2018Oct 05 00:59:00 EDT 2018 Levaquin 500 mg tablet 500mg TABLET Oral 1 Time Daily for 7 Days Nurse admin x4 WedAug 31 16:00:00 2018Sep 07 15:59:00 EST 2018 Acidophilus Ex- Strength: L Acidophilus/L.Sporogenes 70 million/50 mil 2 tabs Oral 2 Times Daily for 14 Days Nurse admin x1 and x4 WedAug 31 16:00:00 2018Sep 14 15:59:00 EST 2018 guaiFENesin 100 mg/5 mL oral liquid 10 ml LIQUID (ML) Oral PRN Every 4 Hours cough WedAug 30 16:30:00 2018Dec 27 12:20:00 EDT 2018 Blood Pressure Kit n/a KIT Other 1 Time Daily for 7 Days B/P daily at noon x1wk WedAug 17 14:00:00 2018Aug 24 13:59:00 2018 melatonin 10 mg tablet 1 TABLET Oral 1 T corinna Daily INSTRUMENT MAN adminx4 DX insomnia Sun Jul 24 07:00:00 2018May 20 16:51:00 EDT 2022 Benadryl 25 mg capsule 1 CAPSULE Oral MT N (Max 1 Doses) May use as sleep aid once time nightly WedJul 24 07:00:00 EST 2018May 20 16:52:00 EDT 2022 potassium chloride ER 20 mEq tablet,extended release(part/cryst) 20 mEq TABLET, EXT RELEASE, PARTICLES/CRYSTALS Oral 2 Times Daily Nurse Admin x4 WedJun 01 07:00:00 EST 2017Aug 19 12:22:00 EST 2024 calcitriol 0.25 mcg capsule 1 capsule CAPSULE Oral 1 Time Daily nurse admin x4 WedMay 27 13:00:00 EST 2017Aug 19 12:26:00 EST 2024 furosemide 20 mg tablet 1 tablet TABLET Oral 1 Time Daily nurse admin x1 WedMay 27 13:00:00 EST 2017Jun 06 19:31:00 EST 2022 Keflex 500 mg capsule 500mg CAPSULE Oral 2 Times Daily for 5 Days Nurse admin x1 and x4 WedFeb 23 17:30:00 EDT 2017Feb 28 17:29:00 EDT 2017 Keflex 500 mg capsule 1 CAPSULE Oral Cindy ry 12 Hours for 7 Days nurse admin WedFeb 01 01:00:00 EDT 2017Feb 08 00:59:00 EDT 2017 Blood Pressure Kit B/P KIT Other 1 Time Monthly Monthly Vitals WedJan 17 07:00:00 EDT 2017May 25 12:24:00 2019 ergocalciferol (vitamin D2) 1,250 mcg (50,000 unit) capsule 50,000 units CAPSULE Oral 2 Times Weekly Nurse admin x1 Mondays and wedDec 23 01:00:00 EDT 2017 calcitriol 0.25 mcg capsule 1 capsule CAPSULE Oral 1 Time Daily nurse to admin, give 0.25mcg + 0.5mcg = 0.75mcg WedDec 23 01:00:00 EDT 2017Dec 23 09:14:00 EDT 2017 calcitriol 0.5 mcg capsule 1 capsule CAP LESLIE Oral 1 Time Daily nurse to admin, give 0.25mcg + 0.5mcg = 0.75mcg WedDec 23 01:00:00 EDT 2017Dec 23 09:14:00 EDT 2017 calcitriol 0.25 mcg capsule 3 capsule CAPSULE Oral 1 Time Daily nurse to admin, give 3 0.25mcg capsules = 0.75mcg Keshia Dec 23 01:00:00 EDT 2017May 27 14:46:00 EST 2017 ZyPREXA 2.5 mg tablet 2.5mg TABLET Oral PRN 1 Time Daily WedDecember 10 07:00:00 EDT 2017Mar 29 17:27:00 EDT 2017 ZyPREXA 2.5 mg tablet 2.5mg TABLET Oral 1 Time Daily Nurse to admin x4 WedDecember 10 01:00:00 ED2017December 10 11:11:00 ED2017 Tylenol 325 mg tablet 2 TABLET Oral PRN Every 4 Hours WedNovember 17 01:00:00 ED2017May 20 16:50:00 EDT 2022 calcitriol 0.25 mcg capsule 1 capsule CAPSULE Oral 1 Time Daily nurse admin x1 WedNov 10 15:00:00 EDT 2017Dec 23 08:32:00 ED2017 Vitamin D2 50,000 unit capsule 50,000 units CAPSULE Oral 1 Time Weekly Nurse admin x1 WedNov 08 07:00:00 ED2017Dec 23 08:32:00 ED2017 TUBErsol 5 tub. unit/0.1 mL intradermal injection solution 0.1 ml VIAL (ML) Intradermal 1 Time Weekly for 2 Weeks (PPD) 1st injection upon admission. Read between 48 and 72 hours and give 2nd injection 1 week after the 1st if result is negative. If positive result, proceed with chest x-ray to rule out active disease. WedNov 03 15:00:00 EDT 2017November 17 14:59:00 ED2017 TUBErsol 5 tub. unit/0.1 mL intradermal injection solution Read Results VIAL (ML) Other 1 Time Weekly for 2 Weeks Read results between 48-72 hours after 1st and 2nd 1 week apart. If positive do chest x-ray to rule out active disease. WedNov 06 15:00:00 ED2017November 20 14:59:00 ED2017 hydrALAZINE 25 mg tablet 1/2 tablet TABL ET Oral 3 Times Daily contract coordinator supervision x1 x2 x4 WedNov 01 01:00:00 ED2017May 01 16:38:00 EDT 2018 amLODIPine 10 mg tablet 1 tablet TABLET Oral 1 Time Daily INSTRUMENT MAN supervision x1 WedOct 30 01:00:00 ED2017Oct 30 12:01:00 ED2017 Aspirin Low Dose 81 mg tablet,delayed release 1 tablet TABLET, DELAYED RELEASE (ENTERIC COATED) Oral 1 Time Daily contract coordinator supervision x1 Sat Oct 30 16:00:00 ED2017Jul 08 15:21:00 2017 amLODIPine 10 mg tablet 1 tablet TABLET Oral 1 Time Daily contract coordinator supervision x1 Sat Oct 30 16:00:00 ED2017May 20 16:46:00 ED2022 calcitriol 0.5 mcg capsule 1 capsule CAP LESLIE Oral 1 Time Daily contract coordinator supervision x1 Sat Oct 30 16:00:00 ED2017Dec 23 08:32:00 ED2017 calcium carbonate 500 mg calcium (1,250 mg) tablet 1 tablet TABLET Oral 3 Times Daily contract coordinator supervision x1 x2 x4 Sat Oct 30 16:00:00 2017Oct 25 16:13:00 2019 chlorhexidine gluconate 0.12 % mouthwash .5 oz MOUTHWASH Oral 2 Times Daily nurse to beverly x1 x4 Sat Oct 30 16:00:00 ED2017Nov 03 12:15:00 ED2017 clopidogrel 75 mg tablet 1 tablet TABLET Oral 1 Time Daily contract coordinator supervision x1 Sat Oct 30 16:00:00 ED2017Jul 08 15:21:00 2017 famotidine 20 mg tablet 1 tablet TABLET Oral 1 Time Daily contract coordinator supervision x1 Sat Oct 30 16:00:00 2017May 20 16:48:00 2022 furosemide 40 mg tablet 1.5 tablets (60 mg) TABLET Oral 1 Time Daily contract coordinator supervision x1 Sat Oct 30 16:00:00 ED2017May 27 14:46:00 2017 hydrALAZINE 25 mg tablet 1 tablet TABLET Oral 3 Times Daily contract coordinator supervision x1 x2 x4 Sat Oct 30 16:00:00 ED2017Nov 01 07:04:00 2017 levothyroxine 150 mcg tablet 1 tablet TABLET Oral 1 Time Daily contract coordinator supervision x1 Sat Oct 30 16:00:00 2017November 21 12:40:00 ED2018 magnesium oxide 400 mg tablet 1 tablet TABLET Oral 2 Times Daily contract coordinator supervision x1 x4 Sat Oct 30 16:00:00 ED2017May 20 16:49:00 ED2022 multivitamin with minerals tablet 1 tablet TABLET Oral 1 Time Daily contract coordinator supervision x1 Sat Oct 30 16:00:00 2017November 29 16:19:00 EDT 2020 oxyCODONE 5 mg tablet 1 tablet TABLET Or al PRN Every 4 Hours nurse admin q4h as needed for pain WedOct 30 16:00:00 EDT 2017Apr 25 12:56:00 EDT 2017 ZyPREXA 2.5 mg tablet 1 tablet TABLET Or al 1 Time Daily contract coordinator supervision x4 WedOct 30 16:00:00 EDT 2017Nov 05 14:14:00 EDT 2017 Problems Active Concerns * Paroxysmal atrial fibrillation* Code: * Start Date: WedOct 30 00:00:00 EDT 2017 * End Date: * Text: * Obstructive sleep apnea (adult) (pediatric)* Code: * Start Date: WedOct 30 00:00:00 EDT 2017 * End Date: * Text: * Peripheral vascular disease, unspecified* Code: * Start Date: WedOct 30 00:00:00 EDT 2017 * End Date: * Text: * Lymphedema, not elsewhere classified* Code: * Start Date: WedOct 30 00:00:00 EDT 2017 * End Date: * Text: * Personal history of urinary (tract) infections* Code: * Start Date: WedOct 30 00:00:00 EDT 2017 * End Date: * Text: * Personal history of sudden cardiac arrest* Code: * Start Date: WedOct 30 00:00:00 EDT 2017 * End Date: * Text: * Personal history of pneumonia (recurrent)* Code: * Start Date: WedOct 30 00:00:00 EDT 2017 * End Date: * Text: * Insomnia, unspecified* Code: * Start Date: WedOct 30 00:00:00 EDT 2017 * End Date: * Text: * Gastro-esophageal reflux disease without esophagitis* Code: * Start Date: WedOct 30 00:00:00 EDT 2017 * End Date: * Text: * Anemia, unspecified* Code: * Start Date: WedOct 30 00:00:00 EDT 2017 * End Date: * Text: * Hypomagnesemia* Code: * Start Date: WedOct 30 00:00:00 EDT 2017 * End Date: * Text: * halfway (current) use of anticoagulants* Code: * Start Date: WedOct 30 00:00:00 EDT 2017 * End Date: * Text: * halfway (current) use of aspirin* Code: * Start Date: WedOct 30 00:00:00 EDT 2017 * End Date: * Text: * Mild cognitive impairment of uncertain or unknown etiology* Code: * Start Date: WedOct 30 00:00:00 EDT 2017 * End Date: * Text: * Unspecified urinary incontinence* Code: * Start Date: WedApr 11 00:00:00 EDT 2017 * End Date: * Text: * Dependence on supplemental oxygen* Code: * Start Date: WedMay 27 00:00:00 2017 * End Date: * Text: * Hypoparathyroidism, unspecified* Code: * Start Date: WedMay 27 00:00:00 2017 * End Date: * Text: * Postprocedural hypothyroidism* Code: * Start Date: WedAug 02 00:00:00 2019 * End Date: * Text: * Vitamin D deficiency, unspecified* Code: * Start Date: WedSep 28 00:00:00 EDT 2019 * End Date: * Text: * Personal history of other endocrine, nutritional and metabolic disease* Code: * Start Date: WedMay 27 00:00:00 2017 * End Date: * Text: * Hypokalemia* Code: * Start Date: WedMay 27 00:00:00 2017 * End Date: * Text: * Adverse effect of loop [high-ceiling] diuretics, subsequent encounter* Code: * Start Date: WedMay 27 00:00:00 2017 * End Date: * Text: * Other nonspecific abnormal finding of lung field* Code: * Start Date: WedMay 27 00:00:00 2017 * End Date: * Text: * Deficiency of other specified B group vitamins* Code: * Start Date: WedApr 15 00:00:00 EDT 2021 * End Date: * Text: * Patient's noncompliance with other medical treatment and regimen due to unspecified reason* Code: * Start Date: WedApr 18 00:00:00 EDT 2021 * End Date: * Text: * Erythematous condition, unspecified* Code: * Start Date: WedMay 27 00:00:00 2017 * End Date: * Text: * Other pancytopenia* Code: * Start Date: WedMay 27 00:00:00 2017 * End Date: * Text: * Heart failure, unspecified* Code: * Start Date: WedMay 27 00:00:00 2017 * End Date: * Text: * Hypertensive heart and chronic kidney disease with heart failure and stage 1 through stage 4 chronic kidney disease, or unspecified chronic kidney disease * Code: * Start Date: WedMay 27 00:00:00 2017 * End Date: * Text: * Nonrheumatic aortic (valve) stenosis* Code: * Start Date: WedMay 27 00:00:00 2017 * End Date: * Text: * Ataxic gait* Code: * Start Date: WedJun 07 00:00:00 EST 2022 * End Date: * Text: * Presence of prosthetic heart valve* Code: * Start Date: WedMay 27 00:00:00 2017 * End Date: * Text: * Chronic pulmonary edema* Code: * Start Date: WedMay 27 00:00:00 2017 * End Date: * Text: * Chronic kidney disease, stage 3b* Code: * Start Date: WedApr 18 00:00:00 EDT 2019 * End Date: * Text: * 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/antiplatelets* Code: * Start Date: WedMay 27 00:00:00 2017 * End Date: * Text: * halfway (current) use of oral hypoglycemic drugs* Code: * Start Date: WedMay 27 00:00:00 2017 * End Date: * Text: * Morbid (severe) obesity due to excess calories* Code: * Start Date: WedMay 27 00:00:00 2017 * End Date: * Text: * Body mass index [BMI] 45.0-49.9, adult* Code: * Start Date: WedMay 27 00:00:00 2017 * End Date: * Text: * Venous insufficiency (chronic) (peripheral)* Code: * Start Date: WedMay 27 00:00:00 2017 * End Date: * Text: * Cellulitis of right lower limb* Code: * Start Date: WedMar 15 00:00:00 EDT 2023 * End Date: * Text: * Cellulitis of left lower limb* Code: * Start Date: WedMar 15 00:00:00 EDT 2023 * End Date: * Text: Resolved Concerns * Problem Acute respiratory failure with hypercapnia* Code: * Start Date: WedMay 31 00:00:00 EST 2022 * End Date: WedJan 09 00:00:00 EDT 2023 * Problem Unspecified acute noninfective otitis externa, left ear* Code: * Start Date: WedMay 27 00:00:00 EST 2018 * End Date: WedFeb 07 00:00:00 EDT 2023 Vital Signs Vital Sign Measurement Date Systolic Blood Pressure 128.00 mm[Hg] [facility] Oct 14 16:35:51 EDT 2024 Diastolic Blood Pressure 78.00 mm[Hg] [facility] Oct 14 16:35:51 EDT 2024 Heart Rate 87.00 /min [facility] Oct 14 16:35 :51 EDT 2024 Body temperature 97.40 [degF] [facility] Oct 14 16:3 5:51 EDT 2024 Respiratory rate 20.00 /min [facility] Oct 14 16:3 5:51 EDT 2024 Pulse Oximetry 97.00 % [facility] Oct 14 16:35 :51 EDT 2024 Systolic Blood Pressure 129.00 mm[Hg] [facility] Oct 14 14:26:39 EDT 2024 Diastolic Blood Pressure 66.00 mm[Hg] [facility] Oct 14 14:26:39 EDT 2024 Heart Rate 20.00 /min [facility] Oct 14 14:26 :39 EDT 2024 Body temperature 97.50 [degF] [facility] Oct 14 14:2 6:39 EDT 2024 Pulse Oximetry 95.00 % [facility] Oct 14 14:26 :39 EDT 2024 Systolic Blood Pressure 115.00 mm[Hg] [facility] Oct 14 12:30:00 EDT 2024 Diastolic Blood Pressure 74.00 mm[Hg] [facility] Oct 14 12:30:00 EDT 2024 Heart Rate 87.00 /min [facility] Oct 14 12:30 :00 EDT 2024 Body temperature 97.50 [degF] [facility] Oct 14 12:3 0:00 EDT 2024 Respiratory rate 20.00 /min [facility] Oct 14 12:3 0:00 EDT 2024 Body weight 298.80 [lb_av] WedOct 11 10:41 :57 EDT 2024 Body weight 297.60 [lb_av] WedOct 04 07:55 :23 EDT 2024 Systolic Blood Pressure 119.00 mm[Hg] WedOct 02 22:06:50 EDT 2024 Diastolic Blood Pressure 75.00 mm[Hg] WedOct 02 22:06:50 EDT 2024 Body weight 302.44 [lb_av] WedOct 02 22:06 :50 EDT 2024 Heart Rate 77.00 /min WedOct 02 22:06 :50 EDT 2024 Body temperature 98.10 [degF] WedOct 02 22:0 6:50 EDT 2024 Systolic Blood Pressure 147.00 mm[Hg] WedOct 01 18:00:00 EDT 2024 Diastolic Blood Pressure 78.00 mm[Hg] WedOct 01 18:00:00 EDT 2024 Heart Rate 80.00 /min WedOct 01 18:00 :00 EDT 2024 Body temperature 97.30 [degF] WedOct 01 18:0 0:00 EDT 2024 Respiratory rate 18.00 /min WedOct 01 18:0 0:00 EDT 2024 Pulse Oximetry 96.00 % WedOct 01 18:00 :00 EDT 2024 Body weight 302.00 [lb_av] WedSep 27 10:30 :55 EDT 2024 Body weight 309.00 [lb_av] WedSep 21 10:57 :27 EST 2024 Systolic Blood Pressure 154.00 mm[Hg] WedSep 18 23:51:09 EST 2024 Diastolic Blood Pressure 78.00 mm[Hg] WedSep 18 23:51:09 EST 2024 Heart Rate 70.00 /min WedSep 18 23:51 :09 EST 2024 Body temperature 98.40 [degF] WedSep 18 23:5 1:09 EST 2024 Body weight 308.80 [lb_av] WedSep 14 08:52 :27 EST 2024 Body weight 308.80 [lb_av] WedSep 13 19:44 :36 EST 2024 Systolic Blood Pressure 140.00 mm[Hg] WedSep 04 22:14:46 EST 2024 Diastolic Blood Pressure 89.00 mm[Hg] WedSep 04 22:14:46 EST 2024 Body weight 314.20 [lb_av] WedSep 04 22:14 :46 EST 2024 Heart Rate 70.00 /min WedSep 04 22:14 :46 EST 2024 Body temperature 98.40 [degF] WedSep 04 22:1 4:46 EST 2024 Body Height 65.00 [in_i] WedAug 31 12:22 :04 EST 2024 Systolic Blood Pressure 144.00 mm[Hg] WedAug 21 22:26:44 EST 2024 Diastolic Blood Pressure 89.00 mm[Hg] WedAug 21 22:26:44 EST 2024 Body weight 310.60 [lb_av] WedAug 21 22:26 :44 EST 2024 Heart Rate 66.00 /min WedAug 21 22:26 :44 EST 2024 Body temperature 98.20 [degF] WedAug 21 22:2 6:44 EST 2024 Systolic Blood Pressure 142.00 mm[Hg] WedAug 04 19:31:46 EST 2024 Diastolic Blood Pressure 81.00 mm[Hg] WedAug 04 19:31:46 EST 2024 Body weight 313.00 [lb_av] WedAug 04 19:31 :46 EST 2024 Heart Rate 75.00 /min WedAug 04 19:31 :46 EST 2024 Body temperature 98.00 [degF] WedAug 04 19:3 1:46 EST 2024 Systolic Blood Pressure 92.00 mm[Hg] WedAug 01 19:04:53 EST 2024 Diastolic Blood Pressure 67.00 mm[Hg] WedAug 01 19:04:53 2024 Heart Rate 87.00 /min WedAug 01 19:04 :53 2024 Body temperature 99.90 [degF] WedAug 01 19:0 4:53 2024 Respiratory rate 22.00 /min WedAug 01 19:0 4:53 2024 Pulse Oximetry 93.00 % WedAug 01 19:04 :53 2024 Systolic Blood Pressure 161.00 mm[Hg] WedJul 22 13:26:39 EST 2024 Diastolic Blood Pressure 71.00 mm[Hg] WedJul 22 13:26:39 2024 Body weight 313.40 [lb_av] WedJul 22 13:26 :39 EST 2024 Heart Rate 74.00 /min WedJul 22 13:26 :39 EST 2024 Body temperature 97.30 [degF] WedJul 22 13:2 6:39 EST 2024 Systolic Blood Pressure 167.00 mm[Hg] WedJul 04 20:03:06 EST 2023 Diastolic Blood Pressure 80.00 mm[Hg] WedJul 04 20:03:06 EST 2023 Body weight 310.80 [lb_av] WedJul 04 20:03 :06 EST 2023 Heart Rate 74.00 /min WedJul 04 20:03 :06 EST 2023 Body temperature 98.60 [degF] Tue Dec 17 20:0 3:06 EST 2023 Systolic Blood Pressure 123.00 mm[Hg] WedJun 20 20:26:26 EST 2023 Diastolic Blood Pressure 61.00 mm[Hg] WedJun 20:26:26 EST 2023 Body weight 303.40 [lb_av] WedJun 20 20:26 :26 EST 2023 Heart Rate 80.00 /min WedJun 20:26 :26 EST 2023 Body temperature 98.10 [degF] WedJun 20 20:2 6:26 EST 2023 Systolic Blood Pressure 156.00 mm[Hg] WedJun 04 21:29:39 EST 2023 Diastolic Blood Pressure 88.00 mm[Hg] WedJun 04 21:29:39 EST 2023 Body weight 308.30 [lb_av] WedJun 04 21:29 :39 EST 2023 Heart Rate 75.00 /min WedJun 04 21:29 :39 EST 2023 Body temperature 98.20 [degF] WedJun 04 21:2 9:39 EST 2023 Systolic Blood Pressure 142.00 mm[Hg] WedMay 22 17:28:28 EST 2023 Diastolic Blood Pressure 83.00 mm[Hg] WedMay 22 17:28:28 EST 2023 Body weight 300.80 [lb_av] WedMay 22 17:28 :28 EST 2023 Heart Rate 72.00 /min WedMay 22 17:28 :28 EST 2023 Body temperature 97.90 [degF] WedMay 22 17:2 8:28 EST 2023 Body temperature 97.80 [degF] WedMay 15 20:0 8:38 EDT 2023 Body temperature 97.70 [degF] WedMay 15 11:0 5:50 EDT 2023 Body temperature 97.70 [degF] [facility] May 14 16:2 5:45 EDT 2023 Body temperature 97.60 [degF] [facility] May 14 12:3 5:06 EDT 2023 Body temperature 97.50 [degF] [facility] May 13 23:4 6:49 EDT 2023 Body temperature 97.80 [degF] [facility] May 13 13:1 5:54 EDT 2023 Body temperature 97.80 [degF] [facility] May 13 13:1 5:54 EDT 2023 Systolic Blood Pressure 135.00 mm[Hg] [facility] May 04 19:43:07 EDT 2023 Diastolic Blood Pressure 66.00 mm[Hg] [facility] May 04 19:43:07 EDT 2023 Body weight 303.20 [lb_av] [facility] May 04 19:43 :07 EDT 2023 Heart Rate 69.00 /min WedMay 04 19:43 :07 EDT 2023 Body temperature 98.10 [degF] [facility] May 04 19:4 3:07 EDT 2023 Body temperature 97.70 [degF] Sun Apr 30 11:5 0:57 EDT 2023 Body temperature 98.60 [degF] Sat Apr 29 16:0 7:31 EDT 2023 Body temperature 97.20 [degF] Sat Apr 29 14:3 8:37 EDT 2023 Body temperature 97.20 [degF] Fri Apr 28 17:0 3:50 EDT 2023 Body temperature 97.90 [degF] Fri Apr 28 11:1 1:44 EDT 2023 Body temperature 97.80 [degF] Fri Apr 28 00:1 7:01 EDT 2023 Systolic Blood Pressure 152.00 mm[Hg] [facility] Apr 20 22:55:07 EDT 2023 Diastolic Blood Pressure 75.00 mm[Hg] [facility] Apr 20 22:55:07 EDT 2023 Body weight 306.00 [lb_av] [facility] Apr 20 22:55 :07 EDT 2023 Heart Rate 73.00 /min [facility] Apr 20 22:55 :07 ED2023 Body temperature 98.70 [degF] [facility] Apr 20 22:5 5:07 EDT 2023 Systolic Blood Pressure 102.00 mm[Hg] [facility] Apr 04 23:12:44 EDT 2023 Diastolic Blood Pressure 65.00 mm[Hg] [facility] Apr 04 23:12:44 EDT 2023 Body weight 305.60 [lb_av] [facility] Apr 04 23:12 :44 EDT 2023 Heart Rate 94.00 /min Apr 04 23:12 :44 EDT 2023 Body temperature 98.40 [degF] [facility] Apr 04 23:1 2:44 EDT 2023 Body weight 294.00 [lb_av] Sun Mar 08 09:09 :18 EDT 2023 Systolic Blood Pressure 163.00 mm[Hg] Wed Sep 04 00:18:22 EDT 2023 Diastolic Blood Pressure 76.00 mm[Hg] Wed Sep 04 00:18:22 EDT 2023 Body weight 297.40 [lb_av] WedMar 22 00:18 :22 EDT 2023 Heart Rate 75.00 /min WedMar 22 00:18 :22 EDT 2023 Body temperature 98.00 [degF] WedMar 22 00:1 8:22 EDT 2023 Body weight 301.20 [lb_av] WedMar 17 12:12 :49 EDT 2023 Systolic Blood Pressure 130.00 mm[Hg] [facility] Mar 05 12:09:00 EDT 2023 Diastolic Blood Pressure 82.00 mm[Hg] [facility] Mar 05 12:09:00 EDT 2023 Body weight 302.20 [lb_av] [facility] Mar 05 12:09 :00 EDT 2023 Heart Rate 78.00 /min [facility] Mar 05 12:09 :00 EDT 2023 Body temperature 97.00 [degF] [facility] Mar 05 12:0 9:00 EDT 2023 Systolic Blood Pressure 127.00 mm[Hg] [facility] Feb 18 18:31:38 EDT 2023 Diastolic Blood Pressure 79.00 mm[Hg] [facility] Feb 18 18:31:38 EDT 2023 Body weight 300.60 [lb_av] [facility] Feb 18 18:31 :38 EDT 2023 Heart Rate 78.00 /min [facility] Feb 18 18:31 :38 EDT 2023 Body temperature 97.70 [degF] [facility] Feb 18 18:3 1:38 EDT 2023 Systolic Blood Pressure 110.00 mm[Hg] WedFeb 01 22:15:41 EDT 2023 Diastolic Blood Pressure 68.00 mm[Hg] WedFeb 01 22:15:41 EDT 2023 Body weight 298.00 [lb_av] WedFeb 01 22:15 :41 EDT 2023 Heart Rate 71.00 /min WedFeb 01 22:15 :41 EDT 2023 Body temperature 98.40 [degF] WedFeb 01 22:1 5:41 EDT 2023 Systolic Blood Pressure 146.00 mm[Hg] WedJan 18 18:28:17 EDT 2023 Diastolic Blood Pressure 70.00 mm[Hg] WedJan 18 18:28:17 EDT 2023 Body weight 299.40 [lb_av] WedJan 18 18:28 :17 EDT 2023 Heart Rate 89.00 /min WedJan 18 18:28 :17 EDT 2024 Body temperature 97.90 [degF] WedJan 18 18:2 8:17 EDT 2023 Systolic Blood Pressure 114.00 mm[Hg] WedJan 02 19:01:31 EDT 2023 Diastolic Blood Pressure 63.00 mm[Hg] WedJan 02 19:01:31 EDT 2023 Body weight 294.20 [lb_av] WedJan 02 19:01 :31 EDT 2023 Heart Rate 67.00 /min WedJan 02 19:01 :31 EDT 2023 Body temperature 97.50 [degF] WedJan 02 19:0 1:31 EDT 2023 Systolic Blood Pressure 126.00 mm[Hg] WedDec 19 19:25:07 EDT 2023 Diastolic Blood Pressure 72.00 mm[Hg] WedDec 19 19:25:07 EDT 2023 Body weight 294.00 [lb_av] WedDec 19 19:25 :07 EDT 2023 Heart Rate 70.00 /min WedDec 19 19:25 :07 EDT 2023 Body temperature 97.80 [degF] WedDec 19 19:2 5:07 EDT 2023 Systolic Blood Pressure 108.00 mm[Hg] WedDecember 03 17:55:18 EDT 2023 Diastolic Blood Pressure 58.00 mm[Hg] WedDecember 03 17:55:18 EDT 2023 Body weight 290.60 [lb_av] WedDecember 03 17:55 :18 EDT 2023 Heart Rate 66.00 /min WedDecember 03 17:55 :18 EDT 2023 Body temperature 98.60 [degF] WedDecember 03 17:5 5:18 EDT 2023 Systolic Blood Pressure 182.00 mm[Hg] WedNovember 18 22:29:16 EDT 2023 Diastolic Blood Pressure 69.00 mm[Hg] WedNovember 18 22:29:16 EDT 2023 Body weight 286.00 [lb_av] WedNovember 18 22:29 :16 EDT 2023 Heart Rate 70.00 /min WedNovember 18 22:29 :16 EDT 2023 Body temperature 97.30 [degF] WedNovember 18 22:2 9:16 EDT 2023 Systolic Blood Pressure 124.00 mm[Hg] WedNov 02 20:55:37 EDT 2023 Diastolic Blood Pressure 71.00 mm[Hg] WedNov 02 20:55:37 EDT 2023 Body weight 285.40 [lb_av] WedNov 02 20:55 :37 EDT 2023 Heart Rate 67.00 /min WedNov 02 20:55 :37 EDT 2023 Body temperature 98.40 [degF] WedNov 02 20:5 5:37 EDT 2023 Systolic Blood Pressure 153.00 mm[Hg] WedOct 19 20:41:14 EDT 2023 Diastolic Blood Pressure 77.00 mm[Hg] WedOct 19 20:41:14 EDT 2023 Body weight 282.20 [lb_av] WedOct 19 20:41 :14 EDT 2023 Heart Rate 65.00 /min WedOct 19 20:41 :14 EDT 2023 Body temperature 98.20 [degF] WedOct 19 20:4 1:14 EDT 2023 Reason for Referral Past Medical History Resolved Concerns * Problem Essential (primary) hypertension* Code: * Start Date: WedOct 30 00:00:00 EDT 2018 * End Date: WedNov 07 00:00:00 EDT 2019 * Problem Vitamin D deficiency, unspecified* Code: * Start Date: WedOct 30 00:00:00 EDT 2018 * End Date: WedNov 07 00:00:00 EDT 2019 * Problem Hypothyroidism, unspecified* Code: * Start Date: WedOct 30 00:00:00 EDT 2018 * End Date: WedNov 07 00:00:00 EDT 2019 * Problem Postprocedural hypothyroidism* Code: * Start Date: WedOct 30 00:00:00 EDT 2018 * End Date: WedMay 08 00:00:00 EDT 2019 * Problem Acute kidney failure, unspecified* Code: * Start Date: WedMay 27 00:00:00 EST 2018 * End Date: WedNov 07 00:00:00 EDT 2019 * Problem Hypercalcemia* Code: * Start Date: WedMay 27 00:00:00 EST 2018 * End Date: WedNov 07 00:00:00 EDT 2019 * Problem Acute bronchitis, unspecified* Code: * Start Date: WedAug 31 00:00:00 EST 2019 * End Date: WedNov 07 00:00:00 EDT 2019 * Problem Hypertensive chronic kidney disease with stage 1 through stage 4 chronic kidney disease, orunspecified chronic kidney disease* Code: * Start Date: WedMay 27 00:00:00 EST 2017 * End Date: WedOct 05 00:00:00 EDT 2023 * Problem Chronic kidney disease, stage 3 (moderate)* Code: * Start Date: WedMay 27 00:00:00 EST 2018 * End Date: WedApr 17 00:00:00 EDT 2019 * Problem Patient's noncompliance with other medical treatment and regimen* Code: * Start Date: WedMay 27 00:00:00 EST 2018 * End Date: WedApr 17 00:00:00 EDT 2021 * Problem Hyperparathyroidism, unspecified* Code: * Start Date: WedMay 27 00:00:00 EST 2017 * End Date: WedSep 17 00:00:00 EST 2022 * Problem Contact with and (suspected) exposure to other viral communicable diseases* Code: * Start Date: WedJan 15 00:00:00 EDT 2020 * End Date: WedOct 05 00:00:00 EDT 2023 * Problem Chronic kidney disease, stage 3 unspecified* Code: * Start Date: WedApr 18 00:00:00 EDT 2019 * End Date: WedOct 05 00:00:00 EDT 2023 * Problem Acquired absence of other organs* Code: * Start Date: WedMay 27 00:00:00 EST 2017 * End Date: WedSep 17 00:00:00 EST 2022 * Problem Cellulitis of left lower limb* Code: * Start Date: WedApr 10 00:00:00 EDT 2021 * End Date: WedSep 01 00:00:00 EST 2022 * Problem Cellulitis of right lower limb* Code: * Start Date: WedApr 10 00:00:00 EDT 2021 * End Date: WedSep 01 00:00:00 EST 2022 * Problem Pneumonia, unspecified organism* Code: * Start Date: WedSep 08 00:00:00 EST 2022 * End Date: WedNovember 29 00:00:00 EDT 2022 * Problem Cellulitis of left lower limb* Code: * Start Date: WedNovember 29 00:00:00 EDT 2022 * End Date: WedJun 08 00:00:00 EST 2022 * Problem Cellulitis of right lower limb* Code: * Start Date: WedNovember 29 00:00:00 EDT 2022 * End Date: WedOct 05 00:00:00 EDT 2023 * Problem Chronic obstructive pulmonary disease, unspecified* Code: * Start Date: WedMay 27 00:00:00 EST 2017 * End Date: WedOct 05 00:00:00 EDT 2023 * Problem Chronic obstructive pulmonary disease with (acute) lower respiratory infection* Code: * Start Date: WedMay 31 00:00:00 EST 2022 * End Date: WedOct 05 00:00:00 EDT 2023 * Problem Pneumonia, unspecified organism* Code: * Start Date: WedMay 31 00:00:00 EST 2022 * End Date: WedOct 05 00:00:00 EDT 2023 * Problem Chronic obstructive pulmonary disease with (acute) exacerbation* Code: * Start Date: WedMay 31 00:00:00 EST 2022 * End Date: WedOct 05 00:00:00 EDT 2023 * Problem Acute respiratory failure with hypercapnia* Code: * Start Date: WedMay 31 00:00:00 EST 2022 * End Date: WedJan 09 00:00:00 EDT 2023 * Problem Muscle weakness (generalized)* Code: * Start Date: WedJun 07 00:00:00 EST 2022 * End Date: WedOct 05 00:00:00 EDT 2023 * Problem Weakness* Code: * Start Date: WedJun 07 00:00:00 EST 2022 * End Date: WedOct 05 00:00:00 EDT 2023 * Problem Unspecified acute noninfective otitis externa, left ear* Code: * Start Date: WedMay 27 00:00:00 EST 2017 * End Date: WedFeb 07 00:00:00 EDT 2023
--- OUTSIDE RECORDS SUMMARY | 2024-10-15 10:23 | XMS_ITS | Clinical Summary ---
Author Organization [facility] Address [address] [place] [address] Care Team Providers Care Clerk Analyst Name Role Phone Tim Lozano Primary Care Provider [phone] Allergies No known active allergies Medications aspirin 81 MG tablet Take 81 mg by mouth daily. Active clopidogrel 75 MG tablet Take 75 mg by mouth daily. Active calcitriol 0.25 MCG capsule Take 0.25 mcg by mouth nightly at bedtime. Per [facility] discharge instructions 05/27/18 8 Active furosemide 20 MG tablet Take 20 mg by mouth daily. Per [facility] Discharge Instructions 05/27/18 8 Active amlodipine 10 MG tablet Take 10 mg by mouth daily. Per [facility] Discharge Instructions 05/27/18 8 Active calcium carbonate 500 MG chewable tablet Chew 1 tablet by mouth 3 (three) times a day. Per [facility] Discharge Instructions 05/27/18 8 Active vitamin D2, ergocalciferol, 12056 UNITS capsule Take 50,000 Units by mouth twice a week. Per [facility] Discharge Instructions 05/27/18 8 Active famotidine 20 MG tablet Take 20 mg by mouth daily. Per [facility] Discharge Instructions 05/27/18 8 Active hydrALAZINE 25 MG tablet Take 12.5 mg by mouth 3 (three) times daily. Per [facility] Discharge Instructions 05/27/18 8 Active levothyroxine 150 MCG tablet Take 150 mcg by mouth every morning. Per [facility] Discharge Instructions 05/27/18 8 Active magnesium oxide 400 MG tablet Take 400 mg by mouth 2 (two) times daily. Per [facility] Discharge Instructions 05/27/18 8 Active multivitamin tablet Take 1 tablet by mouth daily. Per [facility] Discharge Instructions 05/27/18 8 Active Social History Tobacco Use Types Packs/Day Years Used Date Smoking Tobacco: Never Assessed Comments Unknown Sex and Gender Information Value Date Recorded Sex Assigned at Not on file Legal Sex Female 7:07 PM CDT Gender Identity Not on file Sexual Orientation Not on file Last Filed Vital Signs Vital Sign Reading Time Taken Comments Blood Pressure 161/87 05/26/2016 9:53 AM APPLIANCE SERVICE TECHNICIAN Pulse 70 05/26/2016 9:53 AM APPLIANCE SERVICE TECHNICIAN Temperature - - Respiratory Rate - - Oxygen Saturation - - Inhaled Oxygen Concentration - - Weight 124.3 kg (274 lb) 05/26/2016 9:53 AM APPLIANCE SERVICE TECHNICIAN Height 160 cm (5' 3 ) 01/10/2015 8:57 AM CDT Body Mass Index 48.54 01/10/2015 8:57 AM CDT Plan of Treatment Health Maintenance Due Date Last Done Comments Hepatitis C 1963 DTaP, Tdap and Td Vaccines ( 1 - Tdap) 1965 Zoster Vaccines (1 of 2) 1996 Dexa Scan (General) 2011 Pneumococcal Vaccine: 65+ Ye ars (2 of 2 - PPSV23 or PCV20) 05/16/2016 05/16/2015 RSV Immunization or 60+ Years (1 - 1-dose 75+ series) 2021 COVID-19 Vaccine (1 - 2023-2 5 season) 2024 Influenza Adult (#1) 2024 05/16/2015 Meningococcal B Vaccine Aged Out No l onger eligible based on patient's age to complete this topic Meningococcal Vaccine Aged Out No prakash estefania eligible based on patient's age to complete this topic RSV Immunizations Under 20 Months Aged Out No longer eligible based on patient's age to complete this topic Care Teams Clerk Analyst Relationship Specialty Start Date End Date Tim Lozano DO PCP - General 12/04/15
--- OUTSIDE RECORDS SUMMARY | 2024-10-15 10:23 | XMS_ITS | Encounter Summary ---
Author Organization [employer] Address [address] [place] [address] Care Team Providers Care Whistle Punk Name Role Phone Brady Davis MD Primary Care Provider [phone] Encounter Details Date Type Department Care Team (Late st Contact Info) Description 12/17/2017 Lab Requisition [facility] Laboratory Services [facility] [address] [place] [place] [address] Brady Davis MD [address] [place] [address] Hypothyroidism Social History Tobacco Use Types Packs/Day Years [...] Date/Time Associated Diagnosis Comments PTH INTACT Routine 12/17/2017 6:12 AM CDT Hypothyroidism documented in this encounter Results * (ABNORMAL) PTH INTACT (12/17/2017 6:12 AM CDT) PTH INTACT 6.2(L) 15.0 - 65.0 pg/mL 12/17/2017 1:41 PM CDT [facility] [employer] [facility] Blood Venipuncture / Unknown 12/17/2017 6:12 AM CDT 12/17/2017 8:59 AM CDT Brady Davis MD CHEMISTRY ORDERABLES Final R esult Performing Organization Address [facility]/ZIP Co de Phone Number [facility] [id number] [address]ODR[address]Z [address] [address] documented in this encounter Visit Diagnoses Diagnosis Hypothyroidism Unspecified hypothyroidism documented in this encounter Care Teams Whistle Punk Relationship Specialty Start Date End Date Brady Davis MD [address] [place] [address] PCP - General Family Practice 11/04/17 documented as of this encounter
--- OUTSIDE RECORDS SUMMARY | 2024-10-15 10:23 | XMS_ITS | Encounter Summary ---
Author Organization [facility] Address [address] [place] [address] Care Team Providers Care Neuroscience Specialist Name Role Phone Brady Davis MD Primary Care Provider [phone] Encounter Details Date Type Department Care Team (Late st Contact Info) Description 11/05/2017 Lab Requisition [facility] Laboratory Services [address] [facility] [address] [facility] [facility] [place] [address] Brady Davis MD [address] [place] [address] Vitamin D deficiency; Essential (primary) [...] Associated Diagnosis Comments CBC WITH DIFFERENTIAL Routine 11/05/2017 6:03 AM CDT Vitamin D deficiency Essential (primary) hypertension Encounter for screening for diseases of the blood and blood-forming organs and certain disorders involving the immune mechanism VITAMIN D 25 HYDROXY Routine 11/05/2017 6:03 AM CDT Vitamin D deficiency Essential (primary) hypertension Encounter for screening for diseases of the blood and blood-forming organs and certain disorders involving the immune mechanism TSH Routine 11/05/2017 6:03 AM CDT Vitamin D deficiency Essential (primary) hypertension Encounter for screening for diseases of the blood and blood-forming organs and certain disorders involving the immune mechanism T4 FREE Routine 11/05/2017 6:03 AM CDT Vitamin D deficiency Essential (primary) hypertension Encounter for screening for diseases of the blood and blood-forming organs and certain disorders involving the immune mechanism PHOSPHORUS Routine 11/05/2017 6:03 AM CDT Vitamin D deficiency Essential (primary) hypertension Encounter for screening for diseases of the blood and blood-forming organs and certain disorders involving the immune mechanism MAGNESIUM LEVEL Routine 11/05/2017 6:03 AM CDT Vitamin D deficiency Essential (primary) hypertension Encounter for screening for diseases of the blood and blood-forming organs and certain disorders involving the immune mechanism VITAMIN B12 LEVEL Routine 11/05/2017 6:0 3 AM CDT Vitamin D deficiency Essential (primary) hypertension Encounter for screening for diseases of the blood and blood-forming organs and certain disorders involving the immune mechanism LIPID PANEL Routine 11/05/2017 6:03 AM CDT Vitamin D deficiency Essential (primary) hypertension Encounter for screening for diseases of the blood and blood-forming organs and certain disorders involving the immune mechanism COMPREHENSIVE METABOLIC PANEL Routine 11/05/2017 6:03 AM CDT Vitamin D deficiency Essential (primary) hypertension Encounter for screening for diseases of the blood and blood-forming organs and certain disorders involving the immune mechanism documented in this encounter Results * VITAMIN B12 LEVEL (11/05/2017 6:03 AM CDT) [facility] VITAMIN B12 236 232-1,245 pg/mL 11/05/2017 10:47 AM CDT [facility] Comment: It has been reported that between 5 to 10% of patients with values between 200 and 400 pg/mL may experience neuropsychiatric and hematologic abnormalities due to occult B12 deficiency. Less than 1% of patients with values above 400 pg/mL will have symptoms. Effective July 28, 2017, assay updated with new reference ranges specific to [place] population. Blood Venipuncture / Unknown 11/05/2017 6:03 AM CDT 11/05/2017 8:34 AM CDT Brady Davis MD CHEMISTRY ORDERABLES Final R esult [facility] CLIA# [id number] [address] [place] [address] * T4 FREE (11/05/2017 6:03 AM CDT) T4 FREE 1.04 0.90 - 1.70 ng/dL 11/05/2017 10:40 AM CDT [facility] Blood Venipuncture / Unknown 11/05/2017 6:03 AM CDT 11/05/2017 8:34 AM CDT Brady Davis MD CHEMISTRY ORDERABLES Final R esult Performing Organization Address [facility]/ZIP Co de Phone Number [facility] CLIA# [id number] [address] [place] [address] * (ABNORMAL) TSH (11/05/2017 6:03 AM CDT) TSH 17.30(H) 0.27 - 4.20 uIU/mL 11/05/2017 10:40 AM CDT [facility] Blood Venipuncture / Unknown 11/05/2017 6:03 AM CDT 11/05/2017 8:34 AM CDT Brady Davis MD CHEMISTRY ORDERABLES Final R esult [facility] CLIA# [id number] [address] [place] [address] * (ABNORMAL) PHOSPHORUS (11/05/2017 6:03 AM CDT) PHOSPHORUS 4.7(H) 2.5 - 4.5 mg/dL 11/05/2017 10:28 AM CDT [facility] Blood Venipuncture / Unknown 11/05/2017 6:03 AM CDT 11/05/2017 8:34 AM CDT Brady Davis MD CHEMISTRY ORDERABLES Final R esult Performing Organization Address [facility]/ZIP Co de Phone Number [facility] CLIA# [id number] [address] [place] [address] * MAGNESIUM LEVEL (11/05/2017 6:03 AM CDT) Pathologist [facility] MAGNESIUM 2.1 1.6 - 2.4 mg/dL 11/05/2017 10:28 AM CDT [facility] Blood Venipuncture / Unknown 11/05/2017 6:03 AM CDT 11/05/2017 8:34 AM CDT Brady Davis MD CHEMISTRY ORDERABLES Final R esult Performing Organization Address City/[facility] Co de Phone Number [facility] CLPA# [id number] [address] [place] [address] * LIPID PANEL (11/05/2017 6:03 AM CDT) Pathologist [facility] CHOLESTEROL 130 <200 mg/dL 11/05/2017 10:28 AM CDT [facility] TRIGLYCERIDE 47 <150 mg/dL 11/05/2017 10:28 AM CDT [facility] HDL 46 40 - 59 mg/dL 11/05/2017 10:28 AM CDT [facility] LDL CALCULATED 75 <100 mg/dL 11/05/2017 10:28 AM CDT [facility] NON-HDL CHOLESTEROL 84 <130 mg/dL 11/05/2017 10:28 AM CDT [facility] Blood Venipuncture / Unknown 11/05/2017 6:03 AM CDT 11/05/2017 8:34 AM CDT [facility] - 11/05/2017 10:28 AM CDT TOTAL CHOLESTEROL mg/dL Desirable <200 Borderline high 200-239 High >=240 TRIGLYCERIDES mg/dL Normal <150 Borderline high 150-199 High 200-499 Very high >=500 HDL CHOLESTEROL mg/dL Low <40 Normal 40-59 Desirable >=60 NON HDL CHOLESTEROL mg/dL Optimal <130 Near Optimal 130-159 Borderline High 160-189 Very High >=190 Calculated LDL mg/dL Optimal <100 Near Optimal 100-129 Borderline High 130-159 High 160-189 Very High >=190 ATPIII Guidelines Reference Ranges for Lipid Panels (NCEP/AMA) Brady Davis MD CHEMISTRY ORDERABLES Final R esult Performing Organization Address [facility] Co de Phone Number [facility] CLIA# [id number] [address] [facility] [place] [address] * (ABNORMAL) VITAMIN D 25 HYDROXY (11/05/2017 6:03 AM CDT) [facility] VITAMIN D TOTAL (25OH) 17(L) 30 - 100 ng/mL 11/05/2017 10:47 AM CDT [facility] Blood Venipuncture / Unknown 11/05/2017 6:03 AM CDT 11/05/2017 8:34 AM CDT [facility] - 11/05/2017 10:47 AM CDT Interpretive Data Chart: Deficient: 0 - 20 ng/mL Insufficient: 21 - 29 ng/mL Sufficient: 30 - 100 ng/mL Increased Risk of Hypercalciuria: >100 ng/mL Toxic: >150 ng/mL Brady Davis MD CHEMISTRY ORDERABLES Final R esult Performing Organization Address [facility] Co de Phone Number [facility] CLIA# [id number] [address] [place] [address] [address] [address] * (ABNORMAL) COMPREHENSIVE METABOLIC PANEL (11/05/2017 6:03 AM CDT) SODIUM 141 136 - 145 mmol/L 11/05/2017 10:28 AM [facility] POTASSIUM 4.1 3.5 - 5.0 mmol/L 11/05/2017 10:28 AM [facility] - [facility] CHLORIDE 102 98 - 107 mmol/L 11/05/2017 10:28 AM [facility] CO2 28 22 - 29 mmol/L 11/05/2017 10:28 AM [facility] CALCIUM 8.9 8.6 - 10.2 mg/dL 11/05/2017 10:28 AM [facility] BUN 37(H) 8 - 23 mg/dL 11/05/2017 10:28 AM [facility] - [facility] CREATININE 1.21(H) 0.51 - 0.95 mg/dL 11/05/2017 10:28 AM [employer] LABORATORY SERVICES - . [facility] Comment: The GFR result is not clinically significant on patients <18 or >70 years of age. GLUCOSE 74 74 - 99 mg/dL 11/05/2017 10:28 AM [facility] LABORATORY SERVICES - . [facility] TOTAL PROTEIN 6.3(L) 6.7 - 8.6 g/dL 11/05/2017 10:28 AM [facility] - . [facility] ALBUMIN 3.5 3.5 - 5.2 g/dL 11/05/2017 10:28 AM [facility]ATORY SERVICES - . [facility] BILIRUBIN TOTAL 0.4 0.2 - 1.1 mg/dL 11/05/2017 10:28 AM [facility] ALKALINE PHOSPHATASE 51 35 - 104 U/L 11/05/2017 10:28 AM [facility] AST 12 <33 U/L 11/05/2017 10:28 AM [facility]ORY SERVICES - . [facility] ALT 5 <34 U/L 11/05/2017 10:28 AM [facility] - . [facility] GFR 44 mL/min/1.7 3 sq meter 11/05/2017 10:28 AM T [facility] Comment: eGFR has not been validated for [...] please refer to the GFR result. GFR, 53 mL/min/1.7 3 sq meter 11/05/2017 10:28 AM T [facility] ANION GAP 11 8 - 16 mmol/L 11/05/2017 10:28 AM [facility] Blood Venipuncture / Unknown 11/05/2017 6:03 AM CDT 11/05/2017 8:34 AM CDT Narrative [facility] - 11/05/2017 10:28 AM CDT Samples containing indocyanine green cause interferences on Total and/or Direct Bilirubin and must not be measured. Brady Davis MD CHEMISTRY ORDERABLES Final R esult [facility]# [id number] [address] [place] [address] * (ABNORMAL) CBC WITH DIFFERENTIAL (11/05/2017 6:03 AM CDT) [facility] WBC 3.3(L) 4.0 - 9.8 K/uL 11/05/2017 10:00 AM [facility] RBC 2.78(L) 3.90 - 4.90 M/uL 11/05/2017 10:00 AM [facility] HEMOGLOBIN 8.4(L) 11.8 - 14.8 g/dL 11/05/2017 10:00 AM [facility] HEMATOCRIT 26.5(L) 35.5 - 44.0 % 11/05/2017 10:00 AM [employer] [facility] [employer] - [facility] MCV 95.3 82.0 - 99.0 fL 11/05/2017 10:00 AM [employer] [facility] - [facility] MCH 30.2 27.2 - 32.6 pg 11/05/2017 10:00 AM [employer] [facility] - [facility] MCHC 31.7 31.5 - 35.5 g/dL 11/05/2017 10:00 AM [employer] [facility] [facility] - . [facility] RDW 13.8 11.5 - 14.5 % 11/05/2017 10:00 AM [employer] [facility] - [facility] RDW-STDEV 48.7 37.1 - 48.7 fL 11/05/2017 10:00 AM [employer] [facility] [facility] - [facility] PLATELETS 133(L) 140 - 350 K/uL 11/05/2017 10:00 AM [employer] [facility] [facility] - [facility] MPV 10.6 9.3 - 12.4 fL 11/05/2017 10:00 AM [employer] [facility] - [facility] NEUTROPHILS 50 % 11/05/2017 10:00 AM [employer] [facility] - [facility] LYMPHOCYTES 33 % 11/05/2017 10:00 AM [employer] [facility] MONOCYTES 12 % 11/05/2017 10:00 AM [employer] [facility] - [facility] EOSINOPHILS 4 % 11/05/2017 10:00 AM [employer] [facility] - [facility] BASOPHILS 1 % 11/05/2017 10:00 AM [employer] [facility] - [facility] IMMATURE GRANULOCYTES 0 % 11/05/2017 10:00 AM [employer] [facility] - [facility] NEUTROPHIL ABSOLUTE 1.66(L) 1.90 - 7.00 K/uL 11/05/2017 10:00 AM [employer] [facility] - [facility] LYMPHOCYTE ABSOLUTE 1.08 0.70 - 4.50 K/uL 11/05/2017 10:00 AM [employer] [facility] - [facility] MONOCYTE ABSOLUTE 0.39 0.10 - 1.30 K/uL 11/05/2017 10:00 AM [employer] [facility] - [facility] EOSINOPHIL ABSOLUTE 0.14 0.00 - 0.70 K/uL 11/05/2017 10:00 AM CDT [facility] - [facility] BASOPHILS ABSOLUTE 0.02 0.00 - 0.20 K/uL 11/05/2017 10:00 AM CDT [facility] - [facility] IMMATURE GRANULOCYTES ABSOLUTE 0.00 0.00 - 0.03 K/uL 11/05/2017 10:00 AM CDT [facility] - [facility] Blood Venipuncture / Unknown 11/05/2017 6:03 AM CDT 11/05/2017 8:34 AM CDT us Brady Davis MD HEMATOLOGY ORDERABLES Final Result [id number] [address] [place] [address] documented in this encounter Visit Diagnoses Diagnosis Vitamin D deficiency Unspecified vitamin D deficiency Essential (primary) hypertension Unspecified essential hypertension Encounter for screening for diseases of the blood and blood-forming organs and certain disorders involving the immune mechanism documented in this encounter Care Teams Neuroscience Specialist Relationship Specialty Start Date End Date Brady Davis MD [address] [place] [address] PCP - General Family Practice 11/04/17 documented as of this encounter
--- OUTSIDE RECORDS SUMMARY | 2024-10-15 10:23 | XMS_ITS | Encounter Summary ---
Author Organization [employer] Address [address] [place] [address] Care Team Providers Care Woodworking Machine Feeder Name Role Phone Brady Davis MD Primary Care Provider [phone] Encounter Details Date Type Department Care Team (Late st Contact Info) Description 11/08/[address] [facility] Laboratory Services [facility] [address] [facility] [facility] [place] [address] Brady Davis MD [address] [place] [address] Hypothyroidism; Encounter for screening for diseases of the [...] Date/Time Associated Diagnosis Comments PTH INTACT Routine 11/08/2017 6:03 AM CDT Encounter for screening for diseases of the blood and blood-forming organs and certain disorders involving the immune mechanism Hypothyroidism documented in this encounter Results * (ABNORMAL) PTH INTACT (11/08/2017 6:03 AM CDT) PTH INTACT 12.3(L) 15.0 - 65.0 pg/mL 11/08/2017 10:16 AM CDT [facility] [employer] [facility] Blood Venipuncture / Unknown 11/08/2017 6:03 AM CDT 11/08/2017 8:46 AM CDT Brady Davis MD CHEMISTRY ORDERABLES Final R esult [facility] LABORATORY SERVICES [facility]# [id number] [address] [place] [address] documented in this encounter Visit Diagnoses Diagnosis Hypothyroidism Unspecified hypothyroidism Encounter for screening for diseases of the blood and blood-forming organs and certain disorders involving the immune mechanism documented in this encounter Care Teams Woodworking Machine Feeder Relationship Specialty Start Date End Date Brady Davis MD [address] [place] [address] PCP - General Family Practice 11/04/17 documented as of this encounter
[2024-10-15 10:49] LABS: Add Urine Microscopic? NO; Appearance Urine Clear (Clear); Bilirubin Urine Negative (Negative); Blood Urine Negative (Negative); Color Urine Yellow (Yellow); Glucose Urine UA Trace mg/dL (Negative); Ketones Urine Negative (Negative); Leukocyte Esterase Ur Negative LEU/UL (Negative); Nitrate Urine Negative (Negative); Protein Urine Negative (Negative); Specific Grav Ur 1.006 (1.001-1.035); Urobilinogen Urine 0.2 mg/dL (<2.0); pH Urine 7.5 (5.0-9.0)
[2024-10-15] MEDS: SODIUM CHLORIDE 0.9% IV 1,000 ML 999 ML IV CONT ×2 (10:49→13:06)
--- NOTE | 2024-10-15 11:11 | ED_ITS ---
HPI - Altered Mental Status General Chief Complaint: Altered Mental Status Stated Complaint: change in mentation Time Seen by Provider: 10/15/24 10:02 History of Present Illness HPI narrative: 79-year-old female with a past medical history including congestive heart failure on baseline home oxygen, chronic anemia, hypothyroidism. Patient presents from her halfway facility for concerns of mental status changes. Patient presently is awake alert oriented x4 and was alert to that baseline when EMS arrived. Patient states she has no complaints at this time and does not know why she was sent to the hospital. She denies any nausea, vomiting, abdominal pain, back pain, fever, chills, diarrhea, urinary tract infection symptoms. No headache or vision changes. No falls or injury. [facility] did call at states she also had some elevated calcium on outpatient labs. patient does take calcium carbonate tabs per records. Related Data Home Medications ?Medication ?Instructions ?Recorded ?Confirmed ?Last Taken ?Type acetaminophen 650 mg tablet 650 mg PO Q4H PRN Pain (Scale 05/31/23 05/31/23 Unknown History Score 1-3) albuterol sulfate 2.5 mg/3 mL 2.5 mg inhalation Q6H PRN Wheezing 05/31/23 05/31/23 Unknown History (0.083 %) solution for nebulization aspirin 81 mg tablet,delayed 81 mg PO DAILY 05/31/23 05/31/23 Unknown History release (Adult Low Dose Aspirin) calcitriol 0.25 mcg capsule 0.25 mcg PO DAILY 05/31/23 10/15/24 Unknown History calcium carbonate 500 mg PO TID 05/31/23 10/15/24 Unknown History cyanocobalamin (vitamin B-12) 1,000 mcg PO DAILY 05/31/23 05/31/23 Unknown History 1,000 mcg tablet diphenhydramine HCl 25 mg capsule 25 mg PO HS PRN Insomnia 05/31/23 05/31/23 Unknown History (Benadryl) ergocalciferol (vitamin D2) 1,250 See Rx Instructions .Route .COMPLEX 05/31/23 10/15/24 Unknown History mcg (50,000 unit) capsule famotidine 20 mg tablet 20 mg PO DAILY 05/31/23 05/31/23 Unknown History furosemide 20 mg tablet 20 mg PO DAILY 05/31/23 05/31/23 Unknown History guaifenesin 100 mg/5 mL oral liquid 200 mg PO Q4H PRN Cough 05/31/23 05/31/23 Unknown History levothyroxine 200 mcg tablet 200 mcg PO DAILY 05/31/23 05/31/23 Unknown History magnesium oxide 400 mg PO BID 05/31/23 05/31/23 Unknown History melatonin 10 mg tablet 10 mg PO HS 05/31/23 05/31/23 Unknown History multivitamin,tx-minerals 1 cap PO DAILY 05/31/23 05/31/23 Unknown History (Multi-Vitamin HP/Minerals capsule) nystatin 100,000 unit/gram topical 1 applic topical BID PRN Skin 05/31/23 05/31/23 Unknown History powder Irritation potassium chloride 20 mEq 20 meq PO BID 05/31/23 05/31/23 Unknown History tablet,extended release vitamins A,C,W-rnyp-ndxbyq 2,148 2 tablet PO BID 05/31/23 05/31/23 Unknown History mcg-113 mg-45 mg-17.4 mg tablet Allergies Allergy/AdvReac Type Severity Reaction Status Date / Time Penicillins Allergy Unknown Unknown Verified 05/20/18 12:39 Review of Systems 2 Review of Systems: as reviewed above in HPI [facility] Past Medical History Medical History Acute diastolic CHF (congestive heart failure) Lymphedema S/P stent of LE vein, Dr. Field Macular degeneration Hypothyroidism Vitamin D deficiency Chronic anemia Thyroid goiter s/p thyroidectomy complicated by acute resp failure, cardiac arrest, memory loss, G-tube and tracheostomy around 2019, Naun. GERD (gastroesophageal reflux disease) NEVIN (obstructive sleep apnea) Essential hypertension, benign Paroxysmal atrial fibrillation Surgical History Surgical History H/O thyroidectomy for goiter H/O: hysterectomy History of gastrostomy tube placement Hx of tracheostomy Hx of cataract removal with insertion of prosthetic lens Family History Family History Father Brain tumor Social History Social History Social History: Lifelong nonsmoker. Rarely drinks alcohol. No drug use. She is single. No children. Her niece Kaleigh Fernández is her healthcare power of civil attorney. 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 Lives at [place]. she is a full code. Smoking status: Never smoker Alcohol intake: never Substance use: never Substance use type: does not use Lack of Transportation: No Lack of Food: Never True Current Housing: I Have Housing Concerned About Future Housing: No Difficulty Paying Gas/Electric Bills: No Difficulty Paying for Meds: No Currently Unemployed: No Education: Don't Know Difficulty w/ Childcare or Family Care: No Gender identity (if verbalized by the patient): Female Sexual Orientation (if Verbalized by the Patient): Straight or Heterosexual Spiritual care concerns: No Exam 2 Narrative: GENERAL: obese but not any acute distress, answering all questions appropriately. Awake and alert x4 HEAD: [Normocephalic, atraumatic.] EYES: [PERRLA and EOMI.] ENT: Nares clear, no rhinorrhea or epistaxis. Mucous membranes dry. NECK: Supple. CHEST: [Clear to auscultation. No respiratory distress.] HEART: [Regular rate and rhythm]. No murmur heard. [Normal peripheral pulses.] ABDOMEN: [Soft, nondistended], [nontender], [No rigidity or guarding] EXTREMITIES: Normal range of motion. 1+ bilateral edema symmetric, no overlying cellulitis SKIN: Warm, dry, no rash. NEURO: [No focal deficits]. Alert and oriented [x3.] PSYCH: [Normal mood and affect.] Course Vital Signs Vital signs: Vital Signs Pulse Rate 91 10/15/24 09:41 Respiratory Rate 19 10/15/24 09:41 Blood Pressure 126/64 10/15/24 09:41 Pulse Oximetry 96 10/15/24 09:41 Oxygen Delivery Nasal Cannula 10/15/24 09:41 Oxygen Flow Rate 2 10/15/24 09:41 Pulse Rate 76 10/15/24 13:30 Respiratory Rate 20 10/15/24 13:30 Blood Pressure 128/95 H 10/15/24 13:30 Pulse Oximetry 96 10/15/24 13:30 Oxygen Delivery Nasal Cannula 10/15/24 09:41 Oxygen Flow Rate 2 10/15/24 09:41 MDM - Altered Mental Status MDM Narrative Medical decision making narrative: 79-year-old female with a history of CHF, lymphedema, hypertension, COPD. She is on baseline oxygen 2 L nasal cannula. Reportedly she was altered at the nursing facility but patient is awake alert x4, has no acute complaints. She had no acute complaints when EMS arrived but was transported to the hospital regardless. patient herself denies any headache, vision changes, nausea, vomiting, abdominal pain, back pain, fever, chills. No urinary tract complaints. She wishes to go back to her facility. Patient states she has been feeling well lately and does not feel dehydrated but does have some dry mucous membranes. Reportedly she had elevated calcium levels as well. Does take calcium carbonate tabs as well as calcitriol and vitamin-D supplements Per review of the medication list. Given the reported mental status changes a workup was ordered given her age and risk factors including CBC, CMP, urinalysis, CT of the head and chest x-ray, EKG. Low suspicion for acute infectious causes such as UTI or metabolic encephalopathy, no suspicion for toxic encephalopathy. She is currently at her baseline mentation has no complaints whatsoever. Was provided a L of normal saline after laboratory studies did show some elevated calcium although she is asymptomatic and this is not severe range or concerning. Workup was largely unremarkable. There is no leukocytosis or anemia. Platelet count at her normal baseline. coagulation panel within normal limits. Chemistry panel shows BUN and creatinine and with some slight elevations from her chronic kidney disease indicative of an acute kidney injury likely prerenal and dehydration mediated she does appear dry. She has an elevated calcium of 12.7. LFTs are largely unremarkable. Chest x-ray without any acute findings such as infiltrates or effusions. CT of the head shows no acute intracranial process. EKG without any ectopy or dysrhythmia. She was given hydration with fluid boluses here in the ED, has no symptoms on reassessment, does not need admission for hypercalcemia workup as she is asymptomatic. Her primary care provider will have to follow up with this. Will hold her calcium supplemented medications at this time. I did speak to the hospitalist who recommended obtaining repeat CMP after fluids to see if this resolved. Both her acute kidney injury and calcium have significant Improvement after fluids. She is safe for discharge at this time with PCP follow up. Medical Records Attestation: I reviewed the patient's medical records. Lab Data Attestation: I reviewed the patient's lab results. 10/15/24 09:52 10/15/24 14:20 Labs: Lab Results 10/15/24 10/15/24 10/15/24 Range/Units 09:52 10:19 14:20 WBC 6.0 (4.5-10.0) K/mm3 RBC 3.82 L (4.2-5.4) M/mm3 Hgb 13.0 (12.0-15.0) g/dL Hct 40.0 (37.0-47.0) % MCV 104.7 H (80-100) fl MCH 34.0 (26-34) pg MCHC 32.5 (32-36) g/dl RDW 16.9 H (11.5-14.5) % Plt Count 134 L (150-375) k/mm3 MPV 10.7 H (7.4-10.4) fl Immature Gran % (Auto) 0.3 (0-0.5) % Neut % (Auto) 65.2 (45.5-73.1) % Lymph % (Auto) 21.2 (18.3-44.2) % [place] % (Auto) 11.8 H (2.6-8.5) % Eos % (Auto) 1.0 (0-4.4) % Baso % (Auto) 0.5 (0.2-1.2) % Lymph # (Auto) 1.27 (0.9-3.2) K/mm3 [place] # (Auto) 0.7 H (0.1-0.6) K/mm3 Eos # (Auto) 0.1 (0-0.3) K/mm3 Baso # (Auto) 0.0 (0.0-0.1) K/mm3 Abs Immat Gran (auto) 0.02 (0.00-0.031) K/mm3 Absolute Neuts (auto) 3.9 (1.3-6.7) K/mm3 Absolute Nucleated RBC 0.000 (0.0-0.012) K/mm3 Nucleated RBC % 0.0 (0.0-0.2) % PT 14.2 (11.1-14.7) Seconds INR 1.1 APTT 24.1 (22.3-36.8) Seconds Sodium 134 L 136 L (137-145) mmol/L Potassium 3.9 4.2 (3.4-5.0) mmol/L Chloride 90 L 98 (98-107) mmol/L Carbon Dioxide 36 H 34 H (22-30) mmol/L Anion Gap 8 4 (4-12) mmol/L BUN 33 H 32 H (7-17) mg/dL Creatinine 2.00 H 1.73 H (0.7-1.0) mg/dL Estim Creat Clear Calc 28 33 ml/min Estimated GFR 24 L 28 L (59 - ) Glucose 107 91 (65-110) mg/dL Calcium 12.7 H* 11.6 H (8.4-10.2) mg/dL Total Bilirubin 2.1 H 1.8 H (0.2-1.3) mg/dL AST 32 37 H (14-36) U/L ALT 28 26 (6-35) U/L Alkaline Phosphatase 73 61 (38-126) U/L Total Protein 7.0 7.0 (6.3-8.2) g/dL Albumin 4.2 3.7 (3.5-5.1) g/dL Urine Color Yellow (Yellow) Urine Appearance Clear (Clear) Urine pH 7.5 (5.0-9.0) Ur Specific [place] 1.006 (1.001-1.035) Urine Protein Negative (Negative) mg/dL Urine Glucose (UA) Trace H (Negative) mg/dL Urine Ketones Negative (Negative) mg/dL Ur Blood (Man) Negative (Negative) Urine Nitrate Negative (Negative) Urine Bilirubin Negative (Negative) Urine Urobilinogen 0.2 (<2.0) mg/dL Leukocyte Esterase Rfl Negative (Negative) CESIA/UL Imaging Data Attestation: I personally reviewed and interpreted this imaging study as follows: My impression: Impressions Head CT 10/15/24 11:32 Impression: No acute intracranial hemorrhage or suspicious mass effect. Chest X-Ray 10/15/24 11:34 IMPRESSION: Low lung volumes with mild pulmonary vascular congestion. No focal infiltrate. Discharge Plan Discharge Clinical Impression: Hypercalcemia due to chronic kidney disease, Mental status change resolved, Asymptomatic, YRN (acute kidney injury) Patient Disposition: NH Group Home/Asst Living Condition: Stable Instructions: Antibiotic Form, Dehydration (DC), Hypercalcemia (ED) Additional Instructions: you were dehydrated which artificially raised your calcium and kidney numbers. These came down with fluids here in the emergency department. Stop taking your calcium carbonate tablets and vitamin-D supplement medications such as calcitriol and ergocalciferol. Follow-up with the primary care provider. Return with any new or worsening concerns. Maintain good oral hydration Patient Language: [place] Prescriptions: No Action albuterol sulfate 2.5 mg /3 mL (0.083 %) Solution For Nebulization 2.5 mg INHALATION Q6H PRN (Reason: Wheezing) cyanocobalamin (vitamin B-12) 1,000 mcg Tablet 1,000 mcg PO DAILY aspirin [Adult Low Dose Aspirin] 81 mg Tablet,Delayed Release (Dr/Ec) 81 mg PO DAILY acetaminophen 650 mg Tablet 650 mg PO Q4H PRN (Reason: Pain (Scale Score 1-3)) guaifenesin 100 mg/5 mL Liquid 200 mg PO Q4H PRN (Reason: Cough) famotidine 20 mg Tablet 20 mg PO DAILY diphenhydramine HCl [Benadryl] 25 mg Capsule 25 mg PO HS PRN (Reason: Insomnia) levothyroxine 200 mcg Tablet 200 mcg PO DAILY calcium carbonate 500 mg calcium (1,250 mg) Tablet,Chewable 500 mg PO TID furosemide 20 mg Tablet 20 mg PO DAILY ergocalciferol (vitamin D2) 1,250 mcg (50,000 unit) Capsule See Rx Instructions .ROUTE .COMPLEX Rx Instructions: 1,250 mcg orally one capsule on Mondays and . nystatin 100,000 unit/gram Powder 1 applic TOPICAL BID PRN (Reason: Skin Irritation) Rx Instructions: to affected area as needed calcitriol 0.25 mcg Capsule 0.25 mcg PO DAILY Multi-Vitamin HP/Minerals Capsule 1 cap PO DAILY melatonin 10 mg Tablet 10 mg PO HS potassium chloride 20 mEq Tablet Extended Release 20 meq PO BID magnesium oxide 400 mg magnesium Tablet 400 mg PO BID vitamins A,C,G-annz-aevtyl 2,148 mcg-113 mg-45 mg-17.4mg Tablet 2 tablet PO BID Rx Instructions: administer with AM and PM meals cefdinir 300 mg Capsule 300 mg PO Q12HR 5 Days Qty: 10 0RF Jardiance 10 mg Tablet 10 mg PO DAILY 30 Days Qty: 30 0RF furosemide 40 mg tablet 40 mg PO BID Qty: 60 1RF Follow-up/Referrals: Brady Davis MD [Primary Care Provider] - Stand Alone Forms: Half-Way Discharge Time of Disposition: 15:23
[2024-10-15 12:15] VITALS: BP 156/71; PULSE 73; RESP 16; O2SAT 97
[2024-10-15 13:00] VITALS: BP 119/77; PULSE 72; RESP 18; O2SAT 95
[2024-10-15 13:30] VITALS: BP 128/95; PULSE 76; RESP 20; O2SAT 96
[2024-10-15 14:54] LABS: Alanine Aminotransferase 26 U/L (6-35); Albumin Level 3.7 g/dL (3.5-5.1); Alkaline Phosphatase 61 U/L (38-126); Anion Gap 4 mmol/L (4-12); Aspartate Amino Transferase 37 U/L (14-36); Bilirubin,Total 1.8 mg/dL (0.2-1.3); Blood Urea Nitrogen 32 mg/dL (7-17); Calcium 11.6 mg/dL (8.4-10.2); Carbon Dioxide 34 mmol/L (22-30); Chloride 98 mmol/L (98-107); Estimated CRCL calculation 33 ml/min; Estimated Glomerular Filt Rate 28; Glucose 91 mg/dL (65-110); Potassium 4.2 mmol/L (3.4-5.0); Sodium 136 mmol/L (137-145)
[2024-10-15 15:42] VITALS: BP 141/78; PULSE 81; RESP 16; O2SAT 94
[2024-10-15 15:52] VITALS: BP 141/69; PULSE 80; RESP 16; O2SAT 96
== END 2024-10-15 16:40 ==
PROVIDERS: Student in an Organized Health Care Education/Training Program; Emergency Provider Student in an Organized Health Care Education/Training Program; PCP Family Medicine
DX: R41.82 Altered mental status, unspecified (principal); N17.9 Acute kidney failure, unspecified; I13.0 Hypertensive heart and chronic kidney disease with heart failure and stage 1 through stage 4 chronic kidney disease, or unspecified chronic kidney disease; N18.9 Chronic kidney disease, unspecified; I50.31 Acute diastolic (congestive) heart failure; I48.0 Paroxysmal atrial fibrillation; I89.0 Lymphedema, not elsewhere classified; J44.9 Chronic obstructive pulmonary disease, unspecified; E89.0 Postprocedural hypothyroidism; E55.9 Vitamin D deficiency, unspecified; D64.9 Anemia, unspecified; H35.30 Unspecified macular degeneration; K21.9 Gastro-esophageal reflux disease without esophagitis; G47.33 Obstructive sleep apnea (adult) (pediatric); Z99.81 Dependence on supplemental oxygen; Z90.710 Acquired absence of both cervix and uterus; Z96.1 Presence of intraocular lens; Z98.49 Cataract extraction status, unspecified eye; Z79.84 Long term (current) use of oral hypoglycemic drugs; I45.9 Conduction disorder, unspecified; R94.31 Abnormal electrocardiogram [ECG] [EKG]
CPT/HCPCS: 36415; 70450; 71045; 80053; 81003; 85025; 85610; 85730; 93005; 96360; 96361; 99284; J7030

== ENCOUNTER 2025-01-10 09:25 | Outpatient (CLI) | payer MEDICARE, SELFPAY ==
--- NOTE | ~2025-01-10 | US_ITS ---
ULTRASOUND ANKLE BRACHIAL INDEX Ordering provider: Brady Davis MD History: . ATHEROSCLEROSIS I70.208 . Comparison: None. FINDINGS: Right brachial systolic blood pressure: 150 mmHg Left brachial systolic blood pressure: 137 mmHg Right ankle systolic blood pressure: 140 mmHg Left ankle systolic blood pressure: 116 mmHg Right ankle/arm index (TALITA): 0.93 Left ankle/arm index (TALITA): 0.77 Note regarding TALITA: --Normal= 1.0 or slightly greater. --Claudication (moderate stenosis or occlusive state)= 0.6 to 0.9. --Rest pain (severe occlusive states)= 0.5 or less. IMPRESSION: Highly suggestive mild stenosis on the right side. Highly suggestive moderate stenosis seen on the left side Further evaluation advised. Reviewed, dictated and finalized at location A. IMPRESSION: Highly suggestive mild stenosis on the right side. Highly suggestive moderate stenosis seen on the left side Further evaluation ad vised.
== END 2025-01-10 09:26 | disposition home or self-care (01) ==
PROVIDERS: PCP Family Medicine; Visit Provider Family Medicine
DX: I70.208 Unspecified atherosclerosis of native arteries of extremities, other extremity (principal)
CPT/HCPCS: 93922